=== PATIENT | female | born 1950 | race African-American/Black ===

== ENCOUNTER 2017-03-05 13:29 | Inpatient (IN) ==
[2017-03-05] MEDS ORDERED: GLUCAGON 1 MG VIAL IM PRN ×2 (13:35)
[2017-03-05] MEDS ORDERED: DEXTROSE 50% 25 GM/50 ML VIAL IV PRN ×2 (13:35)
--- NOTE | 2017-03-05 13:35 | Cardiothoracic History & Phys ---
History of Present Illness Chief complaint: Shortness of breath History of present illness: Ms. Gregorio is a 66 year old female who presented to [facility] with symptoms over the past 6 weeks of increasing shortness of breath and exertional chest discomfort. Patient was admitted to the hospital for evaluation including cardiac catheterization which demonstrated severe left main equivalent disease with high-grade occlusions in both the proximal anterior descending and circumflex marginal coronary arteries. Patient was referred for urgent bypass surgery. Patient is transferred to this hospital for that purpose. Past medical history the patient has a history of hypertension and has had a nephrectomy for carcinoma of the kidney she also has dyslipidemia and gastroesophageal reflux. Her family history is significant for history of premature coronary artery disease. Her past surgical history includes cholecystectomy hysterectomy and a nephrectomy. Patient is allergic to hydrochlorothiazide and penicillin and sulfa drugs. Patient is a non-smoker and nondrinker. Review of systems is noncontributory to the present illness. Physical examination: Patient is a well-developed well-nourished - [place] female in no acute distress. Examination of head eyes ears nose and throat showed pupils are equal react to light and extraocular motions are intact. The oropharynx is benign. Examination of the neck shows no masses there are no bruits and there is no thyromegaly. Examination of the chest is clear to percussion auscultation and examination the heart shows regular sinus rhythm and there are no murmurs. Examination the abdomen shows that it is soft and nontender there are no masses there is no organomegaly. Examination extremities shows no cyanosis or edema. Neurological examination is grossly within normal limits. Assessment: Coronary artery disease. Plan: Coronary bypass surgery in the morning 03/06/2017 Home Medications Medication Instructions Recorded Confirmed Type Amitriptyline [Elavil] 100 mg PO BEDTIME 05/08/15 05/16/15 History Atorvastatin [Lipitor] 40 mg PO BEDTIME 05/08/15 05/16/15 History Lisinopril 1 tablet PO BEDTIME 05/08/15 05/16/15 History Sertraline [Zoloft] 100 mg PO BEDTIME 05/08/15 05/16/15 History hydroCHLOROthiazide 1 tablet PO BEDTIME 05/08/15 05/16/15 History [Hydrochlorothiazide] raNITIdine HCl [Ranitidine HCl] 1 tablet PO BID 05/08/15 05/16/15 History Metoprolol Tartrate Tab [Lopressor 12.5 mg PO BID #60 tablet 05/22/15 Rx Tab] oxyCODONE IR [Roxicodone] 5 mg PO Q4H PRN #20 tablet 05/22/15 Rx Allergies Allergy/AdvReac Type Severity Reaction Status Date / Time acetaminophen [From Tylenol] Allergy Intermediate RASH Verified 05/08/15 11:58 Sulfa (Sulfonamide Allergy Mild HEAD Verified 05/08/15 11:58 Antibiotics) CONGESTION Penicillins AdvReac Intermediate SYNCOPE Verified 05/08/15 11:58 Medical,Surgical,& Family Hx - Medical History Cardio: History of: Hypertension Neurology: No history of: Brain Aneurysm, Cerebral Hemorrhage, Cerebrovascular Accident , Cerebral Palsy, Dementia, Migraine, Multiple Sclerosis, Parkinson's Disease, Peripheral Neuropathy, Seizures, TIA, Vertigo, Neurologocal Cancer HEENT: History of: Eye Problem (cataracts both eyes), Dental Problems (no upper teeth), HEENT Problems No history of: Ear Problem, Glaucoma, Oral Cancer Endocrine: No history of: Adrenal Disease, Diabetes Mellitus (IDDM), Diabetes Mellitus ( NIDDM), Thyroid Disorder, Endocrine Cancer, Endocrine Problems Rheumatology: History of;: Rheumatological Problems No history of;: Fibromyalgia, Gout, Myasthenia Gravis, Rheumatoid Arthritis Respiratory: No history of: Asthma, Bronchitis, COPD, Intubation, Obstructive Sleep Apnea , Pulmonary Embolism, Pulmonary Hypertension, Pneumonia, Lung Cancer, Respiratory Problems Renal: No history of: Renal (Kidney) Cancer, Dialysis, Renal Failure, Renal Problems Genitourinary: No history of: Bladder Problem, Kidney Stones, Recurring Urinary Tract Infections, Genitourinary Cancer, Problems Gastrointestinal: History of: GERD, GI Problems (chronic constipation) No history of: Bowel Obstruction, Clostridium Difficile, Crohn's Disease, Diverticulitis/ Diverticulosis, Esophageal Varices, Gastrointestinal Bleed, Hemorrhoids, Hematochezia, Hepatitis, Liver Problems, Pancreatitis, Polyps, Ulcerative Colitis, Gastrointestinal Cancer Musculoskeletal: History of: Musculoskeletal Problems No history of: Amputation, Back/Neck Problems, Degenerative Disk Disease, Herniated Disk, Osteoporosis, Musculoskeletal Cancer Hematology: History of: Bleeding Problems (whenever she has bowel movements she reports bleeding.) No history of: Anemia, Clotting Problems, Sickle Cell Disease, Hematologic Cancer, Blood Disorders - Surgical History Cardiac Surgeries: Patient Denies: Femoral-Popliteal Bypass Graft, Cardiac Catheterization, Cardiac Surgery, Carotid Endarterectomy, Internal Defibrillator, Vascular Access Devices Thoracic Surgeries: Surgical HX of;: Kidney (Renal Surgery), Nephrectomy ( partial left nephrectomy (05-16-15)) Patient denies;: Lithotripsy, Organ Transplant, Lobectomy Neurologic Surgeries: Patient denies: Brain Aneurysm, Cerebral Hemorrhage, Neurologic Surgery HEENT Surgeries: Surgical HX of: Eye Surgery (CATARACTS) Patient denies: Carotid Endarterectomy, Thyroid Surgery, Tonsilectomy & Adenoidectomy Abdominal Surgeries: Surgical HX of: Abdominal Surgery (hysterectomy), Cholecystectomy, Colonoscopy, EGD Patient denies: Appendectomy, Gastric Bypass Surgery, Hernia Repair, Splenectomy Reproductive Surgeries: Surgical HX of;: Cystoscopy, Dilation and Curettage, Genitourinary Surgery (bladder removal), Gynecologic Surgery (partial hysterectomy), Hysterectomy (PARTIAL HYST) Patient denies;: Breast Surgery, Section, Tubal Ligation Orthopedic Surgeries: Patient denies;: Implanted Devices, Orthopedic Surgery, Spinal Surgery, Total Hip Replacement, Total Knee Replacement - Family History Family History: Reports;: Family Diabetes (SISTER), Family Heart Disease (MOM), Family Hypertension (BROTHER), Family Psychiatric Problems (SISTER) Denies;: Family Anesthesia Reaction, Family Cancer - Social History Smoking Status: Smoker, status unknown
[2017-03-05] MEDS ORDERED: metroNIDAZOLE 500 MG TABLET PO ONE (20:00)
[2017-03-05] MEDS ORDERED: LISINOPRIL 10 MG TABLET PO ONE (20:00)
[2017-03-05] MEDS ORDERED: LEVOFLOXACIN 500 MG TABLET PO ONE (20:00)
[2017-03-05] MEDS ORDERED: ATORVASTATIN 40 MG TABLET PO ONE (20:30)
[2017-03-05] MEDS ORDERED: SERTRALINE 100 MG TABLET PO SCH (21:00)
[2017-03-05] MEDS ORDERED: SODIUM CHLORIDE 0.9% 1,000 ML IV SCH (21:00)
[2017-03-05] MEDS ORDERED: traZODone 50 MG TABLET PO SCH (21:00)
[2017-03-05] MEDS ORDERED: AMITRIPTYLINE 100 MG TABLET PO SCH (21:00)
[2017-03-05 21:13] LABS: Alanine Aminotransferase 11 U/L (13-56); Albumin 2.1 G/DL (3.4-5.0); Alkaline Phosphatase 139 U/L (45-117); Aspartate Amino Transferase 14 U/L (0-37); Bilirubin,Total < 0.39 MG/DL (0.2-1.0); Blood Urea Nitrogen 11 MG/DL (7-18); Glucose 99 MG/DL (74-106); Osmolality,Calculated 273.7 MOS/KG (273-304); Potassium 3.8 MMOL/L (3.5-5.1); Sodium 138 MMOL/L (136-145); Total Protein 5.8 G/DL (6.4-8.3)
[2017-03-05 21:16] LABS: Basophils % 0.2 % (0.0-0.8); Eosinophils # 0.3 10*3/uL (0.0-0.87); Hematocrit 36.3 VOL% (35.7-47.0); Hemoglobin 11.5 GM/DL (12.0-16.0); Immature Granulocytes % 0.7 %; Immature Granulocytes Absolute 0.06 #; Lymphocytes # 1.6 10*3/uL (1.4-4.0); Lymphocytes % 18.1 % (21.3-54.2); Mean Corpuscular HGB Conc 31.7 GM/DL (32-36); Mean Corpuscular Hemoglobin 27 PG (27-34); Mean Platelet Volume 9.2 FL (9.6-12.0); Monocytes % 10.5 % (1.7-12.7); Neutrophils # 6.1 10*3/uL (1.4-7.4); Neutrophils % 67.5 % (38.7-73.9); Platelet Count 332 T/CUMM (130-400); Red Blood Count 4.22 MC/CUMM (3.8-5.5); Red Cell Distribution Width 15.1 % (9.3-17.3); White Blood Count 9.1 T/CUMM (4-12)
--- NOTE | 2017-03-05 21:19 | XRay Report ---
History: Coronary artery disease Date: 03/05/2017 Study: Chest x-ray single view portable Comparison exam: May 17, 2015 There is mild cardiomegaly. The pulmonary vasculature is slightly prominent. There is no mediastinal mass. Shallow inspiration. There is no brant pneumonia or gross pleural effusion. A small calcified granuloma is noted in the right mid to lower lung. Osseous structures are unremarkable. Impression: Cardiomegaly and evidence of mild CHF PROCEDURE INTERPRETED AT [facility] DEPARTMENT OF RADIOLOGY Final Report Signed by: Dr. Yoanna Overton
[2017-03-05] MEDS: CHLORHEXIDINE 4% SOLN 118 ML BOTTLE TOP SCH (22:15)
[2017-03-05] MEDS: CHLORHEXIDINE 0.12% ORAL RINSE 60 ML BOTTLE SWISH/SPIT SCH (22:16)
[2017-03-06] MEDS: CHLORHEXIDINE 4% SOLN 118 ML BOTTLE TOP SCH ×3 (02:25→12:16)
--- NOTE | 2017-03-06 02:28 | EKG Report ---
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
[2017-03-06 03:27] LABS: ABG Base Excess 6.2 MMOL/L (-2.5-2.5); ABG HCO3 30.1 MMOL/L (20-26); ABG Oxygen Saturation 98.1 % (95-100); ABG PCO2 48.2 MM HG (35-48); ABG PH 7.425 (7.35-7.45); ABG TCO2 28.6 MMOL/L (23-27); Allen Test Positive
[2017-03-06] MEDS ORDERED: PAPAVERINE 60 MG/2 ML VIAL ONE (04:37)
[2017-03-06] MEDS ORDERED: TISSUE ADHESIVE 1 EACH APPLICATOR TOP ONE (04:37)
[2017-03-06] MEDS ORDERED: VANCOMYCIN 1,000 MG VIAL ONE (04:38)
[2017-03-06] MEDS ORDERED: FAMOTIDINE 20 MG TABLET PO ONE (06:00)
[2017-03-06] MEDS ORDERED: CEFUROXIME INJ 1,500 MG in SODIUM CHLORIDE 0.9% 100 ML IV ONE (06:00)
[2017-03-06] MEDS ORDERED: LORazepam 0.5 MG TABLET PO ONE ×2 (06:00)
[2017-03-06] MEDS ORDERED: LORazepam 1 MG TABLET PO ONE (06:00)
[2017-03-06] MEDS ORDERED: PHENYLEPHRINE 1 MG/10 ML SYRINGE IV ONE (06:45)
[2017-03-06] MEDS ORDERED: CALCIUM CHLORIDE 1,000 MG/10 ML SYRINGE IV ONE ×2 (06:45→09:19)
[2017-03-06] MEDS ORDERED: LIDOCAINE 2% 5 ML VIAL ONE (06:45)
[2017-03-06] MEDS ORDERED: VECURONIUM 10 MG VIAL IV ONE (06:45)
[2017-03-06] MEDS ORDERED: ETOMIDATE 20 MG/10 ML VIAL IV ONE (06:45)
[2017-03-06] MEDS ORDERED: AMINOCAPROIC ACID 5,000 MG/20 ML VIAL IV ONE (06:45)
[2017-03-06] MEDS ORDERED: MINERAL OIL/PETROLATUM OPH OINT 3.5 GM TUBE ONE ×2 (06:45→11:14)
[2017-03-06 07:31] LABS: ABG HCO3 29.9 MMOL/L (20-26); ABG PCO2 30.3 MM HG (35-48); ABG PH 7.572 (7.35-7.45); ABG TCO2 25.2 MMOL/L (23-27); Glucose Heart Surgery 89 MG/DL (74-106); Ionized Calcium Arterial 1.08 MMOL/L (1.21-1.46); PCO2 Patient Temp Arterial 30.3 MMHG; PH Patient Temp Arterial 7.572; Patient Temperature 37 CELCIUS; Potassium Heart/CVR 3.5 MMOL/L (3.5-5.1); Sodium Heart/CVR 136 MMOL/L (135-145)
[2017-03-06] MEDS ORDERED: METOPROLOL SUCCINATE XL 25 MG TABLET PO SCH (09:00)
[2017-03-06 09:02] LABS: Hematocrit Heart Surgery 18.7 PERCENT (37-47); PCO2 Patient Temp Venous 32.6 MM HG; PH Patient Temp Venous 7.551; PO2 Patient Temp Venous 35.4 MM HG; Potassium Heart/CVR 4.2 MMOL/L (3.5-5.1); VBG Base Excess 6.1 MEQ/L (0-4); VBG HCO3 29.8 MEQ/L (24-28); VBG Oxygen Saturation 79.7 %; VBG PCO2 35.9 MMHG (41-51); VBG PH 7.52; VBG PO2 40.7 MMHG (17-40)
[2017-03-06 09:03] LABS: Hemoglobin Heart Surgery 5.9 G/DL (12.0-16.0)
[2017-03-06] MEDS ORDERED: NITROPRUSSIDE 50 MG/2 ML VIAL ONE (09:19)
[2017-03-06] MEDS ORDERED: PHENYLEPHRINE DRIP 40 MG/250 ML PREMIX IV ONE (09:19)
[2017-03-06] MEDS ORDERED: POTASSIUM CHLORIDE RIDER 100 ML IV ONE (09:20)
[2017-03-06 09:38] LABS: Hematocrit Heart Surgery 21.8 PERCENT (37-47); PCO2 Patient Temp Venous 33.9 MM HG; PH Patient Temp Venous 7.531; PO2 Patient Temp Venous 36.5 MM HG; Potassium Heart/CVR 4.9 MMOL/L (3.5-5.1); VBG Base Excess 5.5 MEQ/L (0-4); VBG HCO3 29.1 MEQ/L (24-28); VBG Oxygen Saturation 75.7 %; VBG PCO2 33.9 MMHG (41-51); VBG PH 7.531; VBG PO2 36.5 MMHG (17-40)
[2017-03-06] MEDS ORDERED: PHENYLEPHRINE DRIP 20 MG/250 ML PREMIX IV ONE (10:04)
[2017-03-06] MEDS ORDERED: DEXTROSE 5% KCL 20 MEQ 20 MEQ/1,000 ML BAG IV ONE (10:04)
[2017-03-06] MEDS ORDERED: methylPREDNISolone SOD SUC 1,000 MG/8 ML VIAL ONE (10:05)
[2017-03-06] MEDS ORDERED: MAGNESIUM SULFATE 1 GM/2 ML VIAL ONE (10:05)
[2017-03-06] MEDS ORDERED: HEPARIN 10,000 UNIT/10 ML VIAL ONE (10:05)
[2017-03-06] MEDS ORDERED: PROTAMINE SULFATE 50 MG/5 ML VIAL IV ONE (10:05)
[2017-03-06] MEDS ORDERED: ALBUMIN 25% 25 GM/100 ML VIAL IV ONE (10:05)
[2017-03-06] MEDS ORDERED: FUROSEMIDE 20 MG/2 ML VIAL ONE (10:05)
[2017-03-06] MEDS ORDERED: PROTAMINE SULFATE 250 MG/25 ML VIAL IV ONE (10:05)
[2017-03-06] MEDS ORDERED: SODIUM BICARBONATE 50 MEQ/50 ML SYRINGE IV ONE (10:05)
[2017-03-06] MEDS ORDERED: MANNITOL 12.5 GM/50 ML VIAL IV ONE (10:05)
[2017-03-06] MEDS ORDERED: POTASSIUM CHLORIDE 20 MEQ/10 ML VIAL ONE (10:06)
[2017-03-06 10:09] LABS: ABG Base Excess 3.2 MMOL/L (-2.5-2.5); ABG HCO3 27.3 MMOL/L (20-26); ABG Oxygen Saturation 98.1 % (95-100); ABG PCO2 33.9 MM HG (35-48); ABG PH 7.497 (7.35-7.45); ABG TCO2 24.3 MMOL/L (23-27); Glucose Heart Surgery 207 MG/DL (74-106); Hematocrit Heart Surgery 26.1 PERCENT (37-47); Hemoglobin Heart Surgery 8.4 G/DL (12.0-16.0); Ionized Calcium Arterial 1.44 MMOL/L (1.21-1.46); PCO2 Patient Temp Arterial 33.9 MMHG; PH Patient Temp Arterial 7.497; Patient Temperature 37 CELCIUS; Potassium Heart/CVR 3.9 MMOL/L (3.5-5.1); Sodium Heart/CVR 134 MMOL/L (135-145)
[2017-03-06] MEDS ORDERED: DEXTROSE 50% 25 GM/50 ML VIAL IV PRN ×2 (10:44)
[2017-03-06] MEDS ORDERED: INSULIN REGULAR 100 UNIT/ML IV ONE (10:44)
[2017-03-06] MEDS ORDERED: MORPHINE 2 MG/1 ML SYRINGE IV PRN (10:44)
[2017-03-06] MEDS ORDERED: MAGNESIUM SULF RIDER 4 GM in PREMIX 1 EACH IV PRN (10:44)
[2017-03-06] MEDS ORDERED: MIDAZOLAM 2 MG/2 ML VIAL IV PRN (10:44)
[2017-03-06] MEDS ORDERED: POTASSIUM CHLORIDE RIDER 10 MEQ in PREMIX 1 EACH IV PRN (10:44)
[2017-03-06] MEDS ORDERED: NITROPRUSSIDE 100 MG in DEXTROSE 5% 250 ML IV PRN (10:44)
[2017-03-06] MEDS ORDERED: ONDANSETRON 4 MG/2 ML VIAL IV PRN (10:44)
[2017-03-06] MEDS ORDERED: MAGNESIUM SULF RIDER 2 GM in PREMIX 1 EACH IV PRN (10:44)
[2017-03-06] MEDS ORDERED: ACETAMINOPHEN 650 MG SUPP RECTAL PRN (10:44)
[2017-03-06] MEDS ORDERED: PHENYLEPHRINE DRIP 40 MG/250 ML PREMIX IV PRN (10:44)
[2017-03-06] MEDS ORDERED: MORPHINE 10 MG/1 ML VIAL IV PRN (10:44)
[2017-03-06] MEDS ORDERED: INSULIN REGULAR 100 UNIT/ML IV PRN (10:44)
[2017-03-06] MEDS ORDERED: CALCIUM CHLORIDE 1,000 MG/10 ML SYRINGE IV PRN (10:44)
[2017-03-06] MEDS ORDERED: MIDAZOLAM 10 MG/2 ML VIAL IV PRN (10:44)
[2017-03-06] MEDS ORDERED: VECURONIUM 10 MG VIAL IV PRN ×2 (10:44)
--- NOTE | 2017-03-06 10:51 | Operative Note ---
Date of procedure: 03/06/17 Pre-op diagnosis: Coronary artery disease Post-op diagnosis: same Procedure: Procedure: Coronary bypass grafting 2 with saphenous vein graft to the anterior descending and circumflex marginal coronary arteries. Findings: Patient is a 67-year-old lady with recent onset of substernal chest pain and cardiac catheterization demonstrating ostial lesions of both anterior descending and circumflex marginal coronary arteries. The time of surgery left ventricular function was noted to be essentially within normal limits. Left internal mammary artery was very small at its distal end and it was decided that it would be better and safer to put a saphenous vein graft to her large anterior descending coronary artery which was free of disease at the site of anastomosis. Circumflex marginal coronary was grafted using a saphenous vein graft. Patient tolerated procedure well and was returned to recovery in satisfactory condition. Procedure: Patient brought to the operating room placed in the operating table in supine position. After satisfactory induction of general anesthesia the chest abdomen and legs were prepped and draped in sterile fashion. Greater saphenous vein was harvested from the right lower leg and prepared is an arterial graft. Incision in the leg was closed with 3-0 subcutaneous Monocryl and 3-0 subcuticular Monocryl. A standard sternotomy incision was made and the sternum was divided and the heart suspended in a pericardial cradle. Left internal mammary artery was inspected with the above-noted findings. Patient was prepared for cardiopulmonary bypass with systemic heparinization and cannulation of the ascending aorta and right atrium. Cardiopulmonary bypass was begun and the aorta was crossclamped and the heart arrested with cardioplegia solution injected into the aortic root. Heart was protected during the period of crossclamping with topical saline slush. Distal anastomoses were constructed as noted above and then the aorta was unclamped reestablishing cardiac action. Proximal anastomoses were constructed between the inflow ends of the saphenous vein graft and the ascending aorta. Following this the patient was weaned from cardiopulmonary bypass without difficulty. Heparin effect was reversed with protamine and decannulation carried out in a defects in the ascending aorta and right atrium closed with 3-0 Prolene. Operative field was inspected for hemostasis and this was considered adequate incision was closed with interrupted stainless steel wire and the sternum 0 Monopril in the presternal fascia and 3-0 Monocryl in the subcuticular position. 2 chest tubes were left in the anterior mediastinum and brought out through separate stab incisions. Sterile dressings were applied and the patient was returned to recovery in satisfactory condition. Correction on the closure of the leg, the leg was closed with stainless steel skin clips. Surgeon / Physician: Rd Green Estimated blood loss: other (Unable to determine because of cardiopulmonary bypass) Condition: stable Disposition: ICU Results - Labs CBC & BMP: 03/06/17 10:08 03/05/17 20:37 Discharge Plan - Discharge Medications No Action Amitriptyline [Elavil] 100 mg PO BEDTIME Sertraline [Zoloft] 100 mg PO BEDTIME Atorvastatin [Lipitor] 40 mg PO BEDTIME Metoprolol Tartrate Tab [Lopressor Tab] 12.5 mg PO BID #60 tablet Furosemide Tab [Lasix Tab] 20 mg PO DAILY Aspirin Chew Tab 81 mg PO DAILY Pantoprazole Tab [Protonix Tab] 40 mg PO BEDTIME - Follow Up or Referral - Forms/Instructions Instructions: Coronary Artery Bypass Graft (DC), Sternal Precautions (GEN)
[2017-03-06] MEDS ORDERED: INSULIN REGULAR DRIP 100 ML IV SCH (11:00)
[2017-03-06] MEDS ORDERED: SODIUM CHLORIDE 0.45% 1,000 ML IV SCH ×2 (11:00)
[2017-03-06 11:05] LABS: Basophils % 0.1 % (0.0-0.8); Eosinophils # 0.1 10*3/uL (0.0-0.87); Eosinophils % 0.4 % (0.00-10.9); Hemoglobin 10.7 GM/DL (12.0-16.0); Immature Granulocytes % 1.1 %; Immature Granulocytes Absolute 0.15 #; Lymphocytes # 0.6 10*3/uL (1.4-4.0); Lymphocytes % 4.1 % (21.3-54.2); Mean Corpuscular HGB Conc 33.4 GM/DL (32-36); Mean Corpuscular Hemoglobin 28 PG (27-34); Mean Platelet Volume 9.3 FL (9.6-12.0); Monocytes # 0.7 10*3/uL (0.11-0.8); Neutrophils # 12.1 10*3/uL (1.4-7.4); Neutrophils % 89.3 % (38.7-73.9); Platelet Count 299 T/CUMM (130-400); Red Blood Count 3.81 MC/CUMM (3.8-5.5); Red Cell Distribution Width 15.1 % (9.3-17.3); White Blood Count 13.6 T/CUMM (4-12)
[2017-03-06 11:10] LABS: ABG Base Excess 4.7 MMOL/L (-2.5-2.5); ABG HCO3 28.7 MMOL/L (20-26); ABG PCO2 32.7 MM HG (35-48); ABG PH 7.527 (7.35-7.45); ABG TCO2 23.6 MMOL/L (23-27); Glucose Heart Surgery 182 MG/DL (74-106); Hemoglobin Heart Surgery 12.7 G/DL (12.0-16.0); Potassium Heart/CVR 3.7 MMOL/L (3.5-5.1)
[2017-03-06] MEDS ORDERED: SUFentanil 250 MCG/5 ML AMP ONE (11:13)
[2017-03-06] MEDS ORDERED: SEVOFLURANE 1 UNIT/15 MINUTE INH ONE (11:13)
[2017-03-06 11:14] LABS: INR 1.3; PT Patient Result 13.4 SECS; Partial Thromboplastin Time 28.5 SECS (0-40)
[2017-03-06] MEDS ORDERED: MIDAZOLAM 10 MG/2 ML VIAL ONE (11:14)
[2017-03-06] MEDS ORDERED: SODIUM CHLORIDE 0.9% 250 ML IV ONE (11:14)
[2017-03-06] MEDS ORDERED: LACTATED RINGERS 1,000 ML IV ONE (11:14)
[2017-03-06] MEDS ORDERED: SODIUM CHLORIDE 0.9% 1,000 ML IV ONE (11:14)
[2017-03-06 11:32] LABS: Band Neutrophils 4 % (0-10); Hypochromasia 1+; Lymphocytes 4 % (20-55); Platelet Estimate Normal; Segmented Neutrophils 91 % (50-85); Total Cells Counted 100
[2017-03-06 11:48] LABS: Albumin 2.3 G/DL (3.4-5.0); Bilirubin,Total 1.3 MG/DL (0.2-1.0); Calcium 9.2 MG/DL (8.5-10.1); Magnesium 1.9 MG/DL (1.8-2.4); Osmolality,Calculated 281.4 MOS/KG (273-304); Total Protein 5.3 G/DL (6.4-8.3)
[2017-03-06 12:06] LABS: Troponin I Only 6.58 NG/ML (0.00-0.045)
[2017-03-06] MEDS: POTASSIUM CHLORIDE RIDER 20 MEQ in PREMIX 1 EACH IV PRN ×2 (12:14→13:21)
[2017-03-06] MEDS: KETOROLAC 30 MG/1 ML VIAL IV SCH ×3 (12:20→23:01)
--- NOTE | 2017-03-06 12:30 | XRay Report ---
XR chest 1V portable Indication: Line placement Comparison: Chest x-ray 03/05/2017 Technique: Portable AP chest was performed. Findings: Interval sternotomy and placement of multiple tubes and medical support devices has occurred. Perihilar stranding on the right may reflect atelectasis. Heart size is stable. Lungs otherwise are clear. Impression: 1. Interval sternotomy. 03/06/2017 12:27 PM PROCEDURE INTERPRETED AT [facility] DEPARTMENT OF RADIOLOGY Final Report Signed by: Dr. Bon Whaley
[2017-03-06] MEDS: ALBUMIN 5% 12.5 GM in PREMIX 1 EACH IV PRN ×4 (12:42→22:20)
[2017-03-06] MEDS ORDERED: NITROGLYCERIN DRIP 50 MG/250 ML BOTTLE IV ONE (12:55)
[2017-03-06 13:13] LABS: ABG Base Excess 4.4 MMOL/L (-2.5-2.5); ABG HCO3 28.4 MMOL/L (20-26); ABG Oxygen Saturation 98.2 % (95-100); ABG PCO2 30.4 MM HG (35-48); ABG PH 7.548 (7.35-7.45); ABG TCO2 23.9 MMOL/L (23-27); Glucose Heart Surgery 131 MG/DL (74-106); Hematocrit Heart Surgery 31.2 PERCENT (37-47); Hemoglobin Heart Surgery 10.1 G/DL (12.0-16.0); Potassium Heart/CVR 3.9 MMOL/L (3.5-5.1)
[2017-03-06] MEDS ORDERED: NITROGLYCERIN DRIP 50 MG/250 ML BOTTLE IV SCH (13:30)
[2017-03-06] MEDS: CHLORHEXIDINE 0.12% ORAL RINSE 60 ML BOTTLE SWISH/SPIT SCH ×2 (13:42→20:19)
[2017-03-06 15:11] LABS: ABG Base Excess 3.9 MMOL/L (-2.5-2.5); ABG HCO3 27.9 MMOL/L (20-26); ABG PCO2 31.5 MM HG (35-48); ABG PH 7.528 (7.35-7.45); ABG TCO2 23.4 MMOL/L (23-27); Glucose Heart Surgery 117 MG/DL (74-106); Hematocrit Heart Surgery 33.5 PERCENT (37-47); Hemoglobin Heart Surgery 10.8 G/DL (12.0-16.0); Potassium Heart/CVR 4.5 MMOL/L (3.5-5.1)
--- NOTE | 2017-03-06 15:57 | Anesthesia Procedures ---
Anesthesia Procedures - Central Venous Insert Monitors Applied: pulse oximetry, EKG, BP cuff, oxygen via MSBT: pulse oximetry, EKG, BP cuff, oxygen via Procedure: after sterile technique was performed as outlined above, , ultrasound guidance was used to identify vessel, 18G introducer needle was passed into vessel under direct visualizatio, triple lumen catheter was passed over guidewire without difficulty, catheter sutured into place and the ports flushed with NS/hepflush, sterlie dressing applied including the antibiotic disc , vital signs were stable throughout procedure, no apparent complications were noted, CXR to be obtained and read Ultrasound used: identify patency vessel, visualize needle entry to vessel Vein Cannulated: right internal juglar
[2017-03-06 16:24] LABS: ABG Base Excess 3.3 MMOL/L (-2.5-2.5); ABG HCO3 27.4 MMOL/L (20-26); ABG Oxygen Saturation 99.1 % (95-100); ABG PH 7.479 (7.35-7.45); ABG TCO2 24.2 MMOL/L (23-27); Glucose Heart Surgery 118 MG/DL (74-106); Hematocrit Heart Surgery 31.1 PERCENT (37-47); Hemoglobin Heart Surgery 10.1 G/DL (12.0-16.0); Potassium Heart/CVR 4.4 MMOL/L (3.5-5.1)
[2017-03-06] MEDS: CEFUROXIME INJ 1,500 MG in SODIUM CHLORIDE 0.9% 100 ML IV SCH (18:21)
[2017-03-06 19:48] LABS: ABG Base Excess 2.5 MMOL/L (-2.5-2.5); ABG HCO3 25.5 MMOL/L (20-26); ABG Oxygen Saturation 98.4 % (95-100); ABG PCO2 33.8 MM HG (35-48); ABG PH 7.496 (7.35-7.45); ABG PO2 157.8 MM HG (80-95); ABG TCO2 26.6 MMOL/L (23-27); Glucose Heart Surgery 92 MG/DL (74-106); Hemoglobin Heart Surgery 10.3 G/DL (12.0-16.0); Potassium Heart/CVR 4.5 MMOL/L (3.5-5.1)
[2017-03-06] MEDS ORDERED: FUROSEMIDE 40 MG/4 ML VIAL IV ONE (19:58)
[2017-03-06] MEDS ORDERED: FUROSEMIDE 40 MG/4 ML VIAL IV PRN (19:59)
[2017-03-06 20:22] LABS: CKMB % 5.3 %
[2017-03-06 20:31] LABS: Troponin I Only 8.04 NG/ML (0.00-0.045)
[2017-03-06] MEDS: LACTATED RINGERS 250 ML IV PRN ×5 (21:15→23:00)
[2017-03-07 01:14] LABS: ABG Base Excess 2.4 MMOL/L (-2.5-2.5); ABG HCO3 26.6 MMOL/L (20-26); ABG Oxygen Saturation 98.4 % (95-100); ABG PCO2 34.5 MM HG (35-48); ABG PH 7.481 (7.35-7.45); ABG TCO2 23.7 MMOL/L (23-27); Glucose Heart Surgery 97 MG/DL (74-106); Hematocrit Heart Surgery 27.2 PERCENT (37-47); Hemoglobin Heart Surgery 8.8 G/DL (12.0-16.0); Potassium Heart/CVR 4.3 MMOL/L (3.5-5.1)
[2017-03-07] MEDS: INSULIN REGULAR 100 UNIT/ML SUBCUT SCH ×4 (02:21→20:14)
[2017-03-07 02:44] LABS: ABG Base Excess 2.9 MMOL/L (-2.5-2.5); ABG HCO3 27.1 MMOL/L (20-26); ABG Oxygen Saturation 98.3 % (95-100); ABG PCO2 24.8 MM HG (35-48); ABG PO2 96.4 MM HG (80-95); ABG TCO2 22.1 MMOL/L (23-27); Glucose Heart Surgery 97 MG/DL (74-106); Hematocrit Heart Surgery 27.4 PERCENT (37-47); Hemoglobin Heart Surgery 8.8 G/DL (12.0-16.0); Potassium Heart/CVR 4.2 MMOL/L (3.5-5.1)
[2017-03-07 02:49] LABS: ABG PH 7.594 (7.35-7.45)
[2017-03-07 02:59] LABS: Hematocrit 28.7 VOL% (35.7-47.0); Hemoglobin 9.7 GM/DL (12.0-16.0); Immature Granulocytes % 0.6 %; Immature Granulocytes Absolute 0.06 #; Lymphocytes # 0.7 10*3/uL (1.4-4.0); Lymphocytes % 7.8 % (21.3-54.2); Mean Corpuscular HGB Conc 33.8 GM/DL (32-36); Mean Corpuscular Hemoglobin 28 PG (27-34); Mean Corpuscular Volume 82.9 FL (87-102); Monocytes # 0.7 10*3/uL (0.11-0.8); Monocytes % 7.5 % (1.7-12.7); Neutrophils % 84.1 % (38.7-73.9); Platelet Count 239 T/CUMM (130-400); Red Blood Count 3.46 MC/CUMM (3.8-5.5); Red Cell Distribution Width 15.2 % (9.3-17.3); White Blood Count 9.5 T/CUMM (4-12)
[2017-03-07] MEDS: POTASSIUM CHLORIDE RIDER 20 MEQ in PREMIX 1 EACH IV PRN (03:06)
[2017-03-07 03:19] LABS: Bilirubin,Direct 0.2 MG/DL (0.0-0.20); Bilirubin,Total 0.5 MG/DL (0.2-1.0); CKMB % 4.5 %; Calcium 8.8 MG/DL (8.5-10.1); Magnesium 1.7 MG/DL (1.8-2.4); Osmolality,Calculated 280.3 MOS/KG (273-304); Potassium 4.4 MMOL/L (3.5-5.1); Total Protein 5.6 G/DL (6.4-8.3); Troponin I Only 7.07 NG/ML (0.00-0.045)
[2017-03-07 03:33] LABS: ABG Base Excess 2.8 MMOL/L (-2.5-2.5); ABG HCO3 26.9 MMOL/L (20-26); ABG Oxygen Saturation 98.2 % (95-100); ABG PH 7.537 (7.35-7.45); ABG TCO2 21.7 MMOL/L (23-27); Glucose Heart Surgery 101 MG/DL (74-106); Hematocrit Heart Surgery 36.2 PERCENT (37-47); Hemoglobin Heart Surgery 11.8 G/DL (12.0-16.0); Potassium Heart/CVR 4.6 MMOL/L (3.5-5.1)
[2017-03-07 04:56] LABS: ABG Base Excess 0.9 MMOL/L (-2.5-2.5); ABG HCO3 25.2 MMOL/L (20-26); ABG Oxygen Saturation 98.2 % (95-100); ABG PCO2 47.2 MM HG (35-48); ABG TCO2 24.6 MMOL/L (23-27); Glucose Heart Surgery 100 MG/DL (74-106); Hematocrit Heart Surgery 28.9 PERCENT (37-47); Hemoglobin Heart Surgery 9.3 G/DL (12.0-16.0); Potassium Heart/CVR 4.6 MMOL/L (3.5-5.1)
[2017-03-07] MEDS: KETOROLAC 30 MG/1 ML VIAL IV SCH (05:15)
[2017-03-07 05:30] LABS: ABG Base Excess 0.4 MMOL/L (-2.5-2.5); ABG HCO3 24.8 MMOL/L (20-26); ABG Oxygen Saturation 98.3 % (95-100); ABG PH 7.337 (7.35-7.45); ABG TCO2 24.6 MMOL/L (23-27); Glucose Heart Surgery 100 MG/DL (74-106); Hematocrit Heart Surgery 30.6 PERCENT (37-47); Hemoglobin Heart Surgery 9.9 G/DL (12.0-16.0); Potassium Heart/CVR 4.8 MMOL/L (3.5-5.1)
[2017-03-07 06:15] LABS: ABG Base Excess 0.1 MMOL/L (-2.5-2.5); ABG HCO3 24.5 MMOL/L (20-26); ABG Oxygen Saturation 97.8 % (95-100); ABG PCO2 49.3 MM HG (35-48); ABG PH 7.338 (7.35-7.45); ABG TCO2 24.1 MMOL/L (23-27); Glucose Heart Surgery 101 MG/DL (74-106); Hematocrit Heart Surgery 32.2 PERCENT (37-47); Hemoglobin Heart Surgery 10.4 G/DL (12.0-16.0); Potassium Heart/CVR 4.7 MMOL/L (3.5-5.1)
[2017-03-07] MEDS: CEFUROXIME INJ 1,500 MG in SODIUM CHLORIDE 0.9% 100 ML IV SCH (06:17)
--- NOTE | 2017-03-07 08:13 | EKG Report ---
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
--- NOTE | 2017-03-07 08:14 | Cardiothoracic Progress Note ---
Cardiothoracic Subjective Interval history: Patient is awake alert and extubated. She was stable through the night and her vital signs are stable this morning and she is breathing comfortably. Cardiac output has ranged between 2.5 and 3.5 L/min cardiac enzymes are within normal limits for postop day 1. Blood gases are satisfactory postextubation and urine output and creatinine likewise are satisfactory. Chest tube drainage is minimal and her chest tubes are discontinued. I think she can be transferred to telemetry later this morning. Exam (Progress Note) - Constitutional Vitals: Period Temp Pulse Resp BP Sys/Berg Pulse Ox Last 24 Hr 97.0 F-98.2 F 62-87 8-26 93-153/55-86 95-100 Result/EKG - Labs CBC & BMP: 03/07/17 02:40 03/07/17 02:40 Labs: Laboratory Results - last 24 hr 03/05/17 03/06/17 03/06/17 21:07 09:00 09:30 WBC RBC Hgb Hct MCV MCH MCHC RDW Plt Count MPV Neut % (Auto) Lymph % (Auto) [place] % (Auto) Eos % (Auto) Baso % (Auto) Neut # (Auto) Lymph # (Auto) [place] # (Auto) Eos # (Auto) Baso # (Auto) Total Counted Immature Gran % Nucleated RBC % Immature Gran # Segmented Neutrophils Band Neutrophils Lymphocytes Monocytes Nucleated RBCs # Platelet Estimate Hypochromasia INR PT Patient/Control Mix Circ Anticoag PTT Patient Temperature 35 37 ABG pH ABG pH at Pt Temp 7.551 7.531 ABG pCO2 ABG pCO2 at Pt Temp 32.6 33.9 ABG pO2 ABG pO2 at Pt Temp 35.4 36.5 ABG HCO3 ABG Total CO2 ABG O2 Saturation ABG Base Excess ABG Sodium 131 L 132 L VBG pH 7.520 7.531 VBG pCO2 35.9 L 33.9 L VBG pO2 40.7 H 36.5 VBG HCO3 29.8 H 29.1 H VBG Total CO2 28.1 26.9 VBG O2 Saturation 79.7 75.7 VBG Base Excess 6.1 H 5.5 H Hemoglobin 5.9 L* 7.0 L Hematocrit 18.7 L 21.8 L Potassium 4.2 4.9 Glucose 279 H 230 H Ionized Calcium FiO2 80.00 80.00 Sodium Chloride Carbon Dioxide Anion Gap BUN Creatinine GFR Calculation BUN/Creatinine Ratio Calculated Osmolality Calcium Venous Ioniz Calcium 0.91 L 0.95 L Magnesium Total Bilirubin Direct Bilirubin AST ALT Alkaline Phosphatase Total Creatine Kinase CK-MB (CK-2) CK and CKMB Interp Troponin I Total Protein Albumin Globulin Albumin/Globulin Ratio Blood Type O POSITIVE Antibody Screen Negative Crossmatch See Detail 03/06/17 03/06/17 03/06/17 10:08 10:08 11:00 WBC RBC Hgb Hct MCV MCH MCHC RDW Plt Count 179 D MPV Neut % (Auto) Lymph % (Auto) [place] % (Auto) Eos % (Auto) Baso % (Auto) Neut # (Auto) Lymph # (Auto) [place] # (Auto) Eos # (Auto) Baso # (Auto) Total Counted Immature Gran % Nucleated RBC % Immature Gran # Segmented Neutrophils Band Neutrophils Lymphocytes Monocytes Nucleated RBCs # Platelet Estimate Hypochromasia INR PT Patient/Control Mix Circ Anticoag PTT Patient Temperature 37 ABG pH 7.497 H ABG pH at Pt Temp 7.497 ABG pCO2 33.9 L ABG pCO2 at Pt Temp 33.9 ABG pO2 234.0 H ABG pO2 at Pt Temp 234.0 ABG HCO3 27.3 H ABG Total CO2 24.3 ABG O2 Saturation 98.1 ABG Base Excess 3.2 H ABG Sodium 134 L VBG pH VBG pCO2 VBG pO2 VBG HCO3 VBG Total CO2 VBG O2 Saturation VBG Base Excess Hemoglobin 8.4 L Hematocrit 26.1 L Potassium 3.9 4.0 Glucose 207 H 173 H Ionized Calcium 1.44 FiO2 Sodium 140 Chloride 103 Carbon Dioxide 27 Anion Gap 14.0 BUN 10 Creatinine 0.80 GFR Calculation 95 BUN/Creatinine Ratio 12.00 Calculated Osmolality 281.4 Calcium 9.2 Venous Ioniz Calcium Magnesium 1.9 Total Bilirubin 1.30 H Direct Bilirubin AST 113 H ALT 22 Alkaline Phosphatase 408 H Total Creatine Kinase CK-MB (CK-2) CK and CKMB Interp Troponin I Total Protein 5.3 L Albumin 2.3 L Globulin 3.0 Albumin/Globulin Ratio 0.7 L Blood Type Antibody Screen Crossmatch 03/06/17 03/06/17 03/06/17 11:00 11:00 11:02 WBC 13.6 H D RBC 3.81 Hgb 10.7 L Hct 32.0 L MCV 84.0 L MCH 28 MCHC 33.4 RDW 15.1 Plt Count 299 D MPV 9.3 L Neut % (Auto) 89.3 H Lymph % (Auto) 4.1 L [place] % (Auto) 5.0 Eos % (Auto) 0.4 Baso % (Auto) 0.1 Neut # (Auto) 12.1 H Lymph # (Auto) 0.6 L [place] # (Auto) 0.7 Eos # (Auto) 0.1 Baso # (Auto) 0.0 Total Counted 100 Immature Gran % 1.1 Nucleated RBC % 0.0 Immature Gran # 0.15 Segmented Neutrophils 91 H Band Neutrophils 4 Lymphocytes 4 L Monocytes 1 L Nucleated RBCs # 0.00 Platelet Estimate Normal Hypochromasia 1+ INR PT Patient/Control Mix Circ Anticoag PTT Patient Temperature ABG pH 7.527 H ABG pH at Pt Temp ABG pCO2 32.7 L ABG pCO2 at Pt Temp ABG pO2 147.0 H ABG pO2 at Pt Temp ABG HCO3 28.7 H ABG Total CO2 23.6 ABG O2 Saturation 99.0 ABG Base Excess 4.7 H ABG Sodium VBG pH VBG pCO2 VBG pO2 VBG HCO3 VBG Total CO2 VBG O2 Saturation VBG Base Excess Hemoglobin 12.7 Hematocrit 39.0 Potassium 3.7 Glucose 182 H Ionized Calcium FiO2 Sodium Chloride Carbon Dioxide Anion Gap BUN Creatinine GFR Calculation BUN/Creatinine Ratio Calculated Osmolality Calcium Venous Ioniz Calcium Magnesium Total Bilirubin Direct Bilirubin AST ALT Alkaline Phosphatase Total Creatine Kinase 207 H CK-MB (CK-2) 18.7 H CK and CKMB Interp 9.0 Troponin I 6.580 H Total Protein Albumin Globulin Albumin/Globulin Ratio Blood Type Antibody Screen Crossmatch 03/06/17 03/06/17 03/06/17 11:02 13:04 14:55 WBC RBC Hgb Hct MCV MCH MCHC RDW Plt Count MPV Neut % (Auto) Lymph % (Auto) [place] % (Auto) Eos % (Auto) Baso % (Auto) Neut # (Auto) Lymph # (Auto) [place] # (Auto) Eos # (Auto) Baso # (Auto) Total Counted Immature Gran % Nucleated RBC % Immature Gran # Segmented Neutrophils Band Neutrophils Lymphocytes Monocytes Nucleated RBCs # Platelet Estimate Hypochromasia INR 1.3 PT Patient/Control Mix 13.4 Circ Anticoag PTT 28.5 Patient Temperature ABG pH 7.548 H 7.528 H ABG pH at Pt Temp ABG pCO2 30.4 L 31.5 L ABG pCO2 at Pt Temp ABG pO2 185.0 H 148.0 H ABG pO2 at Pt Temp ABG HCO3 28.4 H 27.9 H ABG Total CO2 23.9 23.4 ABG O2 Saturation 98.2 99.0 ABG Base Excess 4.4 H 3.9 H ABG Sodium VBG pH VBG pCO2 VBG pO2 VBG HCO3 VBG Total CO2 VBG O2 Saturation VBG Base Excess Hemoglobin 10.1 L 10.8 L Hematocrit 31.2 L 33.5 L Potassium 3.9 4.5 Glucose 131 H 117 H Ionized Calcium FiO2 Sodium Chloride Carbon Dioxide Anion Gap BUN Creatinine GFR Calculation BUN/Creatinine Ratio Calculated Osmolality Calcium Venous Ioniz Calcium Magnesium Total Bilirubin Direct Bilirubin AST ALT Alkaline Phosphatase Total Creatine Kinase CK-MB (CK-2) CK and CKMB Interp Troponin I Total Protein Albumin Globulin Albumin/Globulin Ratio Blood Type Antibody Screen Crossmatch 03/06/17 03/06/17 03/06/17 16:14 19:43 19:45 WBC RBC Hgb Hct MCV MCH MCHC RDW Plt Count MPV Neut % (Auto) Lymph % (Auto) [place] % (Auto) Eos % (Auto) Baso % (Auto) Neut # (Auto) Lymph # (Auto) [place] # (Auto) Eos # (Auto) Baso # (Auto) Total Counted Immature Gran % Nucleated RBC % Immature Gran # Segmented Neutrophils Band Neutrophils Lymphocytes Monocytes Nucleated RBCs # Platelet Estimate Hypochromasia INR PT Patient/Control Mix Circ Anticoag PTT Patient Temperature ABG pH 7.479 H 7.496 H ABG pH at Pt Temp ABG pCO2 36.0 33.8 L ABG pCO2 at Pt Temp ABG pO2 155.0 H 157.8 H ABG pO2 at Pt Temp ABG HCO3 27.4 H 25.5 ABG Total CO2 24.2 26.6 ABG O2 Saturation 99.1 98.4 ABG Base Excess 3.3 H 2.5 ABG Sodium VBG pH VBG pCO2 VBG pO2 VBG HCO3 VBG Total CO2 VBG O2 Saturation VBG Base Excess Hemoglobin 10.1 L 10.3 L Hematocrit 31.1 L 30.0 L Potassium 4.4 4.5 Glucose 118 H 92 Ionized Calcium FiO2 Sodium Chloride Carbon Dioxide Anion Gap BUN Creatinine GFR Calculation BUN/Creatinine Ratio Calculated Osmolality Calcium Venous Ioniz Calcium Magnesium Total Bilirubin Direct Bilirubin AST ALT Alkaline Phosphatase Total Creatine Kinase 211 H CK-MB (CK-2) 11.2 H D CK and CKMB Interp 5.3 Troponin I 8.040 H D Total Protein Albumin Globulin Albumin/Globulin Ratio Blood Type Antibody Screen Crossmatch 03/07/17 03/07/17 03/07/17 01:11 02:40 02:40 WBC 9.5 D RBC 3.46 L Hgb 9.7 L Hct 28.7 L MCV 82.9 L MCH 28 MCHC 33.8 RDW 15.2 Plt Count 239 D MPV 10.0 Neut % (Auto) 84.1 H Lymph % (Auto) 7.8 L [place] % (Auto) 7.5 Eos % (Auto) 0.0 Baso % (Auto) 0.0 Neut # (Auto) 8.0 H Lymph # (Auto) 0.7 L [place] # (Auto) 0.7 Eos # (Auto) 0.0 Baso # (Auto) 0.0 Total Counted Immature Gran % 0.6 Nucleated RBC % 0.0 Immature Gran # 0.06 Segmented Neutrophils Band Neutrophils Lymphocytes Monocytes Nucleated RBCs # 0.00 Platelet Estimate Hypochromasia INR PT Patient/Control Mix Circ Anticoag PTT Patient Temperature ABG pH 7.481 H ABG pH at Pt Temp ABG pCO2 34.5 L ABG pCO2 at Pt Temp ABG pO2 119.0 H ABG pO2 at Pt Temp ABG HCO3 26.6 H ABG Total CO2 23.7 ABG O2 Saturation 98.4 ABG Base Excess 2.4 ABG Sodium VBG pH VBG pCO2 VBG pO2 VBG HCO3 VBG Total CO2 VBG O2 Saturation VBG Base Excess Hemoglobin 8.8 L Hematocrit 27.2 L Potassium 4.3 Glucose 97 Ionized Calcium FiO2 Sodium Chloride Carbon Dioxide Anion Gap BUN Creatinine GFR Calculation BUN/Creatinine Ratio Calculated Osmolality Calcium Venous Ioniz Calcium Magnesium Total Bilirubin Direct Bilirubin AST ALT Alkaline Phosphatase Total Creatine Kinase 179 CK-MB (CK-2) 8.0 H CK and CKMB Interp 4.5 Troponin I 7.070 H Total Protein Albumin Globulin Albumin/Globulin Ratio Blood Type Antibody Screen Crossmatch 03/07/17 03/07/17 03/07/17 02:40 02:40 03:23 WBC RBC Hgb Hct MCV MCH MCHC RDW Plt Count MPV Neut % (Auto) Lymph % (Auto) [place] % (Auto) Eos % (Auto) Baso % (Auto) Neut # (Auto) Lymph # (Auto) [place] # (Auto) Eos # (Auto) Baso # (Auto) Total Counted Immature Gran % Nucleated RBC % Immature Gran # Segmented Neutrophils Band Neutrophils Lymphocytes Monocytes Nucleated RBCs # Platelet Estimate Hypochromasia INR PT Patient/Control Mix Circ Anticoag PTT Patient Temperature ABG pH 7.594 H* 7.537 H ABG pH at Pt Temp ABG pCO2 24.8 L 29.0 L ABG pCO2 at Pt Temp ABG pO2 96.4 H 105.0 H ABG pO2 at Pt Temp ABG HCO3 27.1 H 26.9 H ABG Total CO2 22.1 L 21.7 L ABG O2 Saturation 98.3 98.2 ABG Base Excess 2.9 H 2.8 H ABG Sodium VBG pH VBG pCO2 VBG pO2 VBG HCO3 VBG Total CO2 VBG O2 Saturation VBG Base Excess Hemoglobin 8.8 L 11.8 L Hematocrit 27.4 L 36.2 L Potassium 4.4 4.2 4.6 Glucose 91 97 101 Ionized Calcium FiO2 Sodium 141 Chloride 107 Carbon Dioxide 26 Anion Gap 12.4 BUN 13 Creatinine 1.00 GFR Calculation 72 BUN/Creatinine Ratio 13.00 Calculated Osmolality 280.3 Calcium 8.8 Venous Ioniz Calcium Magnesium 1.7 L Total Bilirubin 0.50 Direct Bilirubin 0.20 AST 41 H ALT 16 Alkaline Phosphatase 272 H Total Creatine Kinase CK-MB (CK-2) CK and CKMB Interp Troponin I Total Protein 5.6 L Albumin 3.0 L Globulin 2.6 Albumin/Globulin Ratio 1.1 Blood Type Antibody Screen Crossmatch 03/07/17 03/07/17 03/07/17 04:53 05:27 06:14 WBC RBC Hgb Hct MCV MCH MCHC RDW Plt Count MPV Neut % (Auto) Lymph % (Auto) [place] % (Auto) Eos % (Auto) Baso % (Auto) Neut # (Auto) Lymph # (Auto) [place] # (Auto) Eos # (Auto) Baso # (Auto) Total Counted Immature Gran % Nucleated RBC % Immature Gran # Segmented Neutrophils Band Neutrophils Lymphocytes Monocytes Nucleated RBCs # Platelet Estimate Hypochromasia INR PT Patient/Control Mix Circ Anticoag PTT Patient Temperature ABG pH 7.360 7.337 L 7.338 L ABG pH at Pt Temp ABG pCO2 47.2 50.0 H 49.3 H ABG pCO2 at Pt Temp ABG pO2 123.0 H 142.0 H 121.0 H ABG pO2 at Pt Temp ABG HCO3 25.2 24.8 24.5 ABG Total CO2 24.6 24.6 24.1 ABG O2 Saturation 98.2 98.3 97.8 ABG Base Excess 0.9 0.4 0.1 ABG Sodium VBG pH VBG pCO2 VBG pO2 VBG HCO3 VBG Total CO2 VBG O2 Saturation VBG Base Excess Hemoglobin 9.3 L 9.9 L 10.4 L Hematocrit 28.9 L 30.6 L 32.2 L Potassium 4.6 4.8 4.7 Glucose 100 100 101 Ionized Calcium FiO2 Sodium Chloride Carbon Dioxide Anion Gap BUN Creatinine GFR Calculation BUN/Creatinine Ratio Calculated Osmolality Calcium Venous Ioniz Calcium Magnesium Total Bilirubin Direct Bilirubin AST ALT Alkaline Phosphatase Total Creatine Kinase CK-MB (CK-2) CK and CKMB Interp Troponin I Total Protein Albumin Globulin Albumin/Globulin Ratio Blood Type Antibody Screen Crossmatch Quality Measures - VTE Contraindication to Pharmacological VTE Prophylaxis: High Risk of Bleeding Specialty Discharge - Follow Up or Referrals
[2017-03-07] MEDS ORDERED: ONDANSETRON 4 MG/2 ML VIAL IV PRN (08:17)
[2017-03-07] MEDS ORDERED: MAGNESIUM SULF RIDER 2 GM in PREMIX 1 EACH IV PRN (08:17)
[2017-03-07] MEDS ORDERED: oxyCODONE/ACETAMINOPHEN 5-325 MG TABLET PO PRN (08:17)
[2017-03-07] MEDS ORDERED: ALUMINUM/MAGNES/SIMETH MAX STR 30 ML UDCUP PO PRN (08:17)
[2017-03-07] MEDS ORDERED: GLUCAGON 1 MG VIAL IM PRN ×2 (08:17)
[2017-03-07] MEDS ORDERED: MAGNESIUM SULF RIDER 4 GM in PREMIX 1 EACH IV PRN (08:17)
[2017-03-07] MEDS ORDERED: DEXTROSE 50% 25 GM/50 ML VIAL IV PRN ×2 (08:17)
[2017-03-07] MEDS ORDERED: ZALEPLON 5 MG CAPSULE PO PRN (08:17)
[2017-03-07] MEDS ORDERED: ACETAMINOPHEN 325 MG TABLET PO PRN (08:17)
[2017-03-07] MEDS ORDERED: SODIUM CHLOR 0.45% KCL 20 MEQ 20 MEQ/1,000 ML BAG IV SCH ×2 (08:30→14:39)
[2017-03-07] MEDS ORDERED: FUROSEMIDE 20 MG TABLET PO SCH (09:00)
[2017-03-07] MEDS ORDERED: METOPROLOL TARTRATE 25 MG TABLET PO SCH (09:00)
--- NOTE | 2017-03-07 09:17 | XRay Report ---
Portable chest. Indication: Status post chest tube removal. Comparison: Yesterday's exam. The heart is normal in size. Post median sternotomy. Right IJ line remains in satisfactory position. An endotracheal tube, [place] catheter, nasogastric tube, and chest tubes have been removed. Surgical clips are noted in the upper abdomen. The pulmonary vasculature is normal. There is improved aeration at the lung bases. Mild atelectasis persists. No pneumothorax is seen. Impression: Mild persistent atelectasis. No pneumothorax. Interval improvement. PROCEDURE INTERPRETED AT [facility] DEPARTMENT OF RADIOLOGY Final Report Signed by: Dr. Melanie Nichole
[2017-03-07] MEDS: ASPIRIN CHEW 81 MG TABLET PO SCH (09:19)
[2017-03-07] MEDS: FERROUS SULFATE 325 MG TABLET PO SCH (09:19)
[2017-03-07] MEDS: CHLORHEXIDINE 0.12% ORAL RINSE 60 ML BOTTLE SWISH/SPIT SCH ×3 (09:20→20:15)
[2017-03-07] MEDS: DOCUSATE SODIUM 100 MG CAPSULE PO SCH (09:20)
[2017-03-07] MEDS: ALBUMIN 5% 12.5 GM in PREMIX 1 EACH IV PRN ×2 (10:41→11:12)
[2017-03-07] MEDS ORDERED: SODIUM CHLORIDE 0.9% 250 ML IV ONE (13:18)
[2017-03-07] MEDS: PANTOPRAZOLE 40 MG TABLET PO SCH (13:23)
[2017-03-07] MEDS ORDERED: PHENYLEPHRINE DRIP 40 MG/250 ML PREMIX IV ONE (13:52)
[2017-03-07] MEDS: PHENYLEPHRINE DRIP 40 MG/250 ML PREMIX IV SCH (13:58)
[2017-03-07] MEDS ORDERED: LOPERAMIDE 2 MG CAPSULE PO PRN (14:55)
[2017-03-07] MEDS ORDERED: LOPERAMIDE 2 MG CAPSULE PO ONE (15:03)
[2017-03-07] MEDS: metroNIDAZOLE INJ 500 MG in PREMIX 1 EACH IV SCH ×2 (15:14→23:47)
--- NOTE | 2017-03-07 15:35 | Anesthesia Post-Op ---
Anesthesia Post OP - Post Ansesthetic Evaluation Patient seen in post op: Yes Resp: within normal limits CV: within normal limits Mental: within normal limits Temp: within normal limits [id number]: within normal limits Nausea and Vomiting: within normal limits Pain: within normal limits
[2017-03-07] MEDS: MORPHINE 2 MG/1 ML SYRINGE IV PRN ×3 (17:37→23:42)
[2017-03-07 18:05] LABS: Calcium 8.2 MG/DL (8.5-10.1); Magnesium 2.5 MG/DL (1.8-2.4); Osmolality,Calculated 287.3 MOS/KG (273-304); Potassium 4.9 MMOL/L (3.5-5.1)
[2017-03-07] MEDS ORDERED: FUROSEMIDE 100 MG/10 ML VIAL IV ONE (18:21)
[2017-03-07] MEDS ORDERED: methylPREDNISolone SOD SUC 125 MG/2 ML VIAL ONE (18:22)
[2017-03-07] MEDS ORDERED: DOBUTamine 500 MG/250 ML PREMIX IV ONE (18:23)
[2017-03-07] MEDS: SODIUM CHLORIDE 0.45% 1,000 ML IV SCH (18:30)
[2017-03-07] MEDS ORDERED: DOBUTamine 500 MG/250 ML PREMIX IV SCH (18:30)
[2017-03-07] MEDS: methylPREDNISolone SOD SUC 125 MG/2 ML VIAL IV SCH (18:31)
[2017-03-07] MEDS ORDERED: CEFUROXIME INJ 1,500 MG in SODIUM CHLORIDE 0.9% 100 ML IV ONE (18:45)
[2017-03-07] MEDS: FUROSEMIDE INJ 100 MG in SODIUM CHLORIDE 0.9% 90 ML IV SCH (19:23)
[2017-03-07] MEDS: AMITRIPTYLINE 100 MG TABLET PO SCH (20:14)
[2017-03-07] MEDS: ATORVASTATIN 40 MG TABLET PO SCH (20:14)
[2017-03-07] MEDS: SERTRALINE 100 MG TABLET PO SCH (20:14)
[2017-03-07] MEDS ORDERED: PANTOPRAZOLE 40 MG TABLET PO SCH (21:00)
[2017-03-07 22:44] LABS: Magnesium 2.2 MG/DL (1.8-2.4); Potassium 4.7 MMOL/L (3.5-5.1)
[2017-03-07] MEDS ORDERED: AMIODARONE INJ 150 MG in DEXTROSE 5% 100 ML IV ONE (22:55)
[2017-03-07] MEDS ORDERED: AMIODARONE INJ 450 MG in DEXTROSE 5% 241 ML IV SCH (23:30)
[2017-03-08] MEDS: methylPREDNISolone SOD SUC 125 MG/2 ML VIAL IV SCH ×4 (00:16→19:01)
[2017-03-08] MEDS: INSULIN REGULAR 100 UNIT/ML SUBCUT SCH ×6 (00:21→20:48)
[2017-03-08] MEDS: MORPHINE 2 MG/1 ML SYRINGE IV PRN ×3 (03:05→10:28)
[2017-03-08 03:33] LABS: Basophils % 0.1 % (0.0-0.8); Hematocrit 37.7 VOL% (35.7-47.0); Hemoglobin 12.3 GM/DL (12.0-16.0); Immature Granulocytes % 0.9 %; Immature Granulocytes Absolute 0.16 #; Lymphocytes # 0.5 10*3/uL (1.4-4.0); Lymphocytes % 2.7 % (21.3-54.2); Mean Corpuscular HGB Conc 32.6 GM/DL (32-36); Mean Corpuscular Hemoglobin 28 PG (27-34); Mean Corpuscular Volume 85.5 FL (87-102); Mean Platelet Volume 9.6 FL (9.6-12.0); Monocytes # 0.9 10*3/uL (0.11-0.8); Monocytes % 5.1 % (1.7-12.7); Neutrophils # 15.9 10*3/uL (1.4-7.4); Neutrophils % 91.2 % (38.7-73.9); Platelet Count 310 T/CUMM (130-400); Red Blood Count 4.41 MC/CUMM (3.8-5.5); Red Cell Distribution Width 15.8 % (9.3-17.3); White Blood Count 17.4 T/CUMM (4-12)
[2017-03-08] MEDS: PHENYLEPHRINE DRIP 40 MG/250 ML PREMIX IV SCH (03:40)
[2017-03-08 03:54] LABS: Alanine Aminotransferase 17 U/L (13-56); Albumin 3.1 G/DL (3.4-5.0); Alkaline Phosphatase 273 U/L (45-117); Aspartate Amino Transferase 56 U/L (0-37); Bilirubin,Indirect 0.2 MG/DL (0.0-1.0); Blood Urea Nitrogen 23 MG/DL (7-18); Calcium 7.8 MG/DL (8.5-10.1); Glucose 251 MG/DL (74-106); Magnesium 2.3 MG/DL (1.8-2.4); Osmolality,Calculated 284.8 MOS/KG (273-304); Sodium 137 MMOL/L (136-145); Total Protein 6.1 G/DL (6.4-8.3)
[2017-03-08] MEDS: FUROSEMIDE INJ 100 MG in SODIUM CHLORIDE 0.9% 90 ML IV SCH ×2 (04:19→16:27)
[2017-03-08 04:28] LABS: Band Neutrophils 8 % (0-10); Lymphocytes 2 % (20-55); Platelet Estimate Normal; Segmented Neutrophils 86 % (50-85); Total Cells Counted 100
[2017-03-08] MEDS: AMIODARONE INJ 450 MG in DEXTROSE 5% 241 ML IV SCH ×2 (05:34→20:50)
[2017-03-08] MEDS ORDERED: FUROSEMIDE 40 MG/4 ML VIAL IV ONE (06:00)
[2017-03-08] MEDS: metroNIDAZOLE INJ 500 MG in PREMIX 1 EACH IV SCH ×2 (06:06→14:53)
[2017-03-08] MEDS ORDERED: LEVOFLOXACIN INJ 500 MG in PREMIX 1 EACH IV SCH (07:30)
[2017-03-08 07:45] LABS: ABG Base Excess -3.3 MMOL/L (-2.5-2.5); ABG HCO3 20.3 MMOL/L (20-26); ABG Oxygen Saturation 96.1 % (95-100); ABG PO2 87.8 MM HG (80-95); ABG TCO2 21.3 MMOL/L (23-27); Glucose Heart Surgery 193 MG/DL (74-106); Hemoglobin Heart Surgery 12.8 G/DL (12.0-16.0); Potassium Heart/CVR 4.8 MMOL/L (3.5-5.1)
[2017-03-08] MEDS ORDERED: ALBUTEROL/IPRATROPIUM 3 ML NEB RESP TX ONE (07:46)
--- NOTE | 2017-03-08 07:59 | Cardiothoracic Progress Note ---
Cardiothoracic Subjective Interval history: Patient looks and feels okay this morning. She is awake alert and extubated and breathing comfortably. She is somewhat tachycardic and is on amiodarone infusion. She appears to be breathing comfortably and her arterial blood gases are satisfactory. Her urine output has been good overnight but she is on a Lasix infusion because of low urine output yesterday. Her creatinine has come down from 1.7-1.6 this morning. She also has had no further bowel movements after 1 dose of Imodium. Going to ask both GI and renal do see her today because of her pre-existing and ongoing renal dysfunction and also because of her repeated episodes of diarrhea and the previous [place] weeks ago of colitis. I have empirically put her on antibiotics and steroids and I have continued the Flagyl which she was on when she was transferred here from [facility]. She does have an appetite this morning and we are going to see how she does getting up out of bed but I am going to keep her in intensive care at least for another 24 hours. From a cardiac standpoint her progress appears satisfactory. Exam (Progress Note) - Constitutional Vitals: Period Temp Pulse Resp BP Sys/Berg Pulse Ox Last 24 Hr 97.0 F-98.5 F 70-139 12-33 74-160/43-97 95-100 Result/EKG - Labs CBC & BMP: 03/08/17 03:20 03/08/17 03:20 Labs: Laboratory Results - last 24 hr 03/05/17 03/06/17 03/06/17 21:07 14:20 16:56 WBC RBC Hgb Hct MCV MCH MCHC RDW Plt Count MPV Neut % (Auto) Lymph % (Auto) [place] % (Auto) Eos % (Auto) Baso % (Auto) Neut # (Auto) Lymph # (Auto) [place] # (Auto) Eos # (Auto) Baso # (Auto) Total Counted Immature Gran % Nucleated RBC % Immature Gran # Segmented Neutrophils Band Neutrophils Lymphocytes Monocytes Nucleated RBCs # Platelet Estimate Pappenheimer Bodies ABG pH ABG pCO2 ABG pO2 ABG HCO3 ABG Total CO2 ABG O2 Saturation ABG Base Excess Hemoglobin Hematocrit Sodium Potassium Chloride Carbon Dioxide Anion Gap BUN Creatinine GFR Calculation BUN/Creatinine Ratio Glucose POC Glucose 118 H 99 Calculated Osmolality Calcium Magnesium Total Bilirubin Direct Bilirubin Indirect Bilirubin AST ALT Alkaline Phosphatase Total Creatine Kinase CK-MB (CK-2) Troponin I Total Protein Albumin Globulin Albumin/Globulin Ratio Crossmatch See Detail 03/06/17 03/06/17 03/06/17 18:16 19:00 20:05 WBC RBC Hgb Hct MCV MCH MCHC RDW Plt Count MPV Neut % (Auto) Lymph % (Auto) [place] % (Auto) Eos % (Auto) Baso % (Auto) Neut # (Auto) Lymph # (Auto) [place] # (Auto) Eos # (Auto) Baso # (Auto) Total Counted Immature Gran % Nucleated RBC % Immature Gran # Segmented Neutrophils Band Neutrophils Lymphocytes Monocytes Nucleated RBCs # Platelet Estimate Pappenheimer Bodies ABG pH ABG pCO2 ABG pO2 ABG HCO3 ABG Total CO2 ABG O2 Saturation ABG Base Excess Hemoglobin Hematocrit Sodium Potassium Chloride Carbon Dioxide Anion Gap BUN Creatinine GFR Calculation BUN/Creatinine Ratio Glucose POC Glucose 110 H 145 H 104 Calculated Osmolality Calcium Magnesium Total Bilirubin Direct Bilirubin Indirect Bilirubin AST ALT Alkaline Phosphatase Total Creatine Kinase CK-MB (CK-2) Troponin I Total Protein Albumin Globulin Albumin/Globulin Ratio Crossmatch 03/06/17 03/06/17 03/06/17 21:02 22:06 23:10 WBC RBC Hgb Hct MCV MCH MCHC RDW Plt Count MPV Neut % (Auto) Lymph % (Auto) [place] % (Auto) Eos % (Auto) Baso % (Auto) Neut # (Auto) Lymph # (Auto) [place] # (Auto) Eos # (Auto) Baso # (Auto) Total Counted Immature Gran % Nucleated RBC % Immature Gran # Segmented Neutrophils Band Neutrophils Lymphocytes Monocytes Nucleated RBCs # Platelet Estimate Pappenheimer Bodies ABG pH ABG pCO2 ABG pO2 ABG HCO3 ABG Total CO2 ABG O2 Saturation ABG Base Excess Hemoglobin Hematocrit Sodium Potassium Chloride Carbon Dioxide Anion Gap BUN Creatinine GFR Calculation BUN/Creatinine Ratio Glucose POC Glucose 108 H 91 96 Calculated Osmolality Calcium Magnesium Total Bilirubin Direct Bilirubin Indirect Bilirubin AST ALT Alkaline Phosphatase Total Creatine Kinase CK-MB (CK-2) Troponin I Total Protein Albumin Globulin Albumin/Globulin Ratio Crossmatch 03/06/17 03/07/17 03/07/17 23:57 01:10 02:18 WBC RBC Hgb Hct MCV MCH MCHC RDW Plt Count MPV Neut % (Auto) Lymph % (Auto) [place] % (Auto) Eos % (Auto) Baso % (Auto) Neut # (Auto) Lymph # (Auto) [place] # (Auto) Eos # (Auto) Baso # (Auto) Total Counted Immature Gran % Nucleated RBC % Immature Gran # Segmented Neutrophils Band Neutrophils Lymphocytes Monocytes Nucleated RBCs # Platelet Estimate Pappenheimer Bodies ABG pH ABG pCO2 ABG pO2 ABG HCO3 ABG Total CO2 ABG O2 Saturation ABG Base Excess Hemoglobin Hematocrit Sodium Potassium Chloride Carbon Dioxide Anion Gap BUN Creatinine GFR Calculation BUN/Creatinine Ratio Glucose POC Glucose 100 95 108 H Calculated Osmolality Calcium Magnesium Total Bilirubin Direct Bilirubin Indirect Bilirubin AST ALT Alkaline Phosphatase Total Creatine Kinase CK-MB (CK-2) Troponin I Total Protein Albumin Globulin Albumin/Globulin Ratio Crossmatch 03/07/17 03/07/17 03/07/17 06:06 16:57 17:30 WBC RBC Hgb Hct MCV MCH MCHC RDW Plt Count MPV Neut % (Auto) Lymph % (Auto) [place] % (Auto) Eos % (Auto) Baso % (Auto) Neut # (Auto) Lymph # (Auto) [place] # (Auto) Eos # (Auto) Baso # (Auto) Total Counted Immature Gran % Nucleated RBC % Immature Gran # Segmented Neutrophils Band Neutrophils Lymphocytes Monocytes Nucleated RBCs # Platelet Estimate Pappenheimer Bodies ABG pH ABG pCO2 ABG pO2 ABG HCO3 ABG Total CO2 ABG O2 Saturation ABG Base Excess Hemoglobin Hematocrit Sodium 141 Potassium 4.9 Chloride 107 Carbon Dioxide 24 Anion Gap 14.9 BUN 20 H Creatinine 1.70 H GFR Calculation 39 BUN/Creatinine Ratio 11.00 Glucose 163 H POC Glucose 101 196 H Calculated Osmolality 287.3 Calcium 8.2 L Magnesium 2.5 H Total Bilirubin Direct Bilirubin Indirect Bilirubin AST ALT Alkaline Phosphatase Total Creatine Kinase CK-MB (CK-2) Troponin I Total Protein Albumin Globulin Albumin/Globulin Ratio Crossmatch 03/07/17 03/07/17 03/07/17 19:43 22:25 23:11 WBC RBC Hgb Hct MCV MCH MCHC RDW Plt Count MPV Neut % (Auto) Lymph % (Auto) [place] % (Auto) Eos % (Auto) Baso % (Auto) Neut # (Auto) Lymph # (Auto) [place] # (Auto) Eos # (Auto) Baso # (Auto) Total Counted Immature Gran % Nucleated RBC % Immature Gran # Segmented Neutrophils Band Neutrophils Lymphocytes Monocytes Nucleated RBCs # Platelet Estimate Pappenheimer Bodies ABG pH ABG pCO2 ABG pO2 ABG HCO3 ABG Total CO2 ABG O2 Saturation ABG Base Excess Hemoglobin Hematocrit Sodium Potassium 4.7 Chloride Carbon Dioxide Anion Gap BUN Creatinine GFR Calculation BUN/Creatinine Ratio Glucose POC Glucose 194 H 237 H Calculated Osmolality Calcium Magnesium 2.2 Total Bilirubin Direct Bilirubin Indirect Bilirubin AST ALT Alkaline Phosphatase Total Creatine Kinase CK-MB (CK-2) Troponin I Total Protein Albumin Globulin Albumin/Globulin Ratio Crossmatch 03/08/17 03/08/17 03/08/17 01:12 03:10 03:20 WBC 17.4 H D RBC 4.41 D Hgb 12.3 D Hct 37.7 MCV 85.5 L MCH 28 MCHC 32.6 RDW 15.8 Plt Count 310 D MPV 9.6 Neut % (Auto) 91.2 H Lymph % (Auto) 2.7 L [place] % (Auto) 5.1 Eos % (Auto) 0.0 Baso % (Auto) 0.1 Neut # (Auto) 15.9 H Lymph # (Auto) 0.5 L [place] # (Auto) 0.9 H Eos # (Auto) 0.0 Baso # (Auto) 0.0 Total Counted 100 Immature Gran % 0.9 Nucleated RBC % 0.0 Immature Gran # 0.16 Segmented Neutrophils 86 H Band Neutrophils 8 Lymphocytes 2 L Monocytes 4 Nucleated RBCs # 0.00 Platelet Estimate Normal Pappenheimer Bodies Public [employer] Officer ABG pH ABG pCO2 ABG pO2 ABG HCO3 ABG Total CO2 ABG O2 Saturation ABG Base Excess Hemoglobin Hematocrit Sodium Potassium Chloride Carbon Dioxide Anion Gap BUN Creatinine GFR Calculation BUN/Creatinine Ratio Glucose POC Glucose 307 H 281 H Calculated Osmolality Calcium Magnesium Total Bilirubin Direct Bilirubin Indirect Bilirubin AST ALT Alkaline Phosphatase Total Creatine Kinase CK-MB (CK-2) Troponin I Total Protein Albumin Globulin Albumin/Globulin Ratio Crossmatch 03/08/17 03/08/17 03:20 07:25 WBC RBC Hgb Hct MCV MCH MCHC RDW Plt Count MPV Neut % (Auto) Lymph % (Auto) [place] % (Auto) Eos % (Auto) Baso % (Auto) Neut # (Auto) Lymph # (Auto) [place] # (Auto) Eos # (Auto) Baso # (Auto) Total Counted Immature Gran % Nucleated RBC % Immature Gran # Segmented Neutrophils Band Neutrophils Lymphocytes Monocytes Nucleated RBCs # Platelet Estimate Pappenheimer Bodies ABG pH 7.420 ABG pCO2 32.0 L ABG pO2 87.8 ABG HCO3 20.3 ABG Total CO2 21.3 L ABG O2 Saturation 96.1 ABG Base Excess -3.3 L Hemoglobin 12.8 Hematocrit 38.0 Sodium 137 Potassium 5.0 4.8 Chloride 104 Carbon Dioxide 22 Anion Gap 16.0 H BUN 23 H Creatinine 1.60 H GFR Calculation 42 BUN/Creatinine Ratio 14.00 Glucose 251 H 193 H POC Glucose Calculated Osmolality 284.8 Calcium 7.8 L Magnesium 2.3 Total Bilirubin 0.50 Direct Bilirubin 0.30 H Indirect Bilirubin 0.2 AST 56 H ALT 17 Alkaline Phosphatase 273 H Total Creatine Kinase 189 CK-MB (CK-2) 3.9 H Troponin I 4.870 H D Total Protein 6.1 L Albumin 3.1 L Globulin 3.0 Albumin/Globulin Ratio 1.0 L Crossmatch Quality Measures - VTE Contraindication to Pharmacological VTE Prophylaxis: High Risk of Bleeding Specialty Discharge - Follow Up or Referrals
--- NOTE | 2017-03-08 08:27 | XRay Report ---
Portable chest. Indication: Shortness of breath. Comparison: March 07, 2017. The heart is mildly enlarged. Post median sternotomy. Central line remains in satisfactory position. The pulmonary vasculature is now prominent. Bilateral basilar infiltrates and pleural effusion have developed. Impression: Worsening findings suggesting congestive heart failure. PROCEDURE INTERPRETED AT [facility] DEPARTMENT OF RADIOLOGY Final Report Signed by: Dr. Melanie Nichole
--- NOTE | 2017-03-08 08:30 | Nephrology Consult Note ---
History of Present Illness Chief complaint: Increased BUN and creatinine History of present illness: Ms. Gregorio is a 67 year old female with a history of a partial nephrectomy for renal cell carcinoma a few years ago. The patient was admitted to [facility] on 03/05/2017 for cardiovascular surgery. The patient had just been admitted to [facility] about a week ago for abdominal pain and GI bleeding. She was found to have colitis at that time she improved and was discharged home. The patient then re-presented to [facility] with recurrent abdominal pain and some associated chest pain. The subsequent cardiac workup revealed significant coronary artery disease that required cardiovascular bypass surgery 2 days ago. We were asked to see the patient for increased creatinine the patient's creatinine prior to the surgery was 0.8 mg/dL since the surgery the patient's creatinine increased to 1.7 mg/dL. Today the patient's creatinine is down to 1.6 mg/dL. Currently the patient is getting normal saline at 80 cc an hour she is also getting a Lasix infusion. The patient's urine output since starting the Lasix infusion has been averaging around 80 to 100 cc an hour. The patient had a heart catheterization done on 03/04/2017 at [facility]. ROS: Head -positive headaches ENT - denies sore throat Lymphatics - denies lymphadenopathy Hematology -patient presented with bleeding a few weeks ago to [facility] and states that she used to have problems with recurrent nosebleeds Heart -positive chest pain Lungs - denies shortness of breath Abdomen - denies abdominal pain Musculoskeletal -positive arthritis Skin -she states she broke out in a severe rash when taking Tylenol a few years ago prior to her nephrectomy Neurology - denies stroke General -positive subjective fever PE: General: in no acute distress Eyes: Pupils are round and reactive, conjunctivae are clear ENT: Nose is clear, O/P is benign Neck: Supple, no thyromegaly Lymphatics: No cervical, supraclavicular or axillary adenopathy Heart: Regular rate and rhythm, no edema Lungs: Clear to auscultation anteriorly, chest expansion symmetric Abdomen: Soft, normoactive bowel sounds, no hepatomegaly Musculoskeletal: No joint erythema or effusions or joint asymmetry Skin: Normal turgor, normal hydration, no rash Neuro/Psych: Alert and cooperative with fair insight Home Medications Medication Instructions Recorded Confirmed Type Amitriptyline [Elavil] 100 mg PO BEDTIME 05/08/15 03/05/17 History Atorvastatin [Lipitor] 40 mg PO BEDTIME 05/08/15 03/05/17 History Sertraline [Zoloft] 100 mg PO BEDTIME 05/08/15 03/05/17 History Metoprolol Tartrate Tab [Lopressor 12.5 mg PO BID #60 tablet 05/22/15 03/05/17 Rx Tab] Aspirin Chew Tab 81 mg PO DAILY 03/05/17 03/05/17 History Furosemide Tab [Lasix Tab] 20 mg PO DAILY 03/05/17 03/05/17 History Pantoprazole Tab [Protonix Tab] 40 mg PO BEDTIME 03/05/17 03/05/17 History Allergies Allergy/AdvReac Type Severity Reaction Status Date / Time acetaminophen [From Tylenol] Allergy Intermediate RASH Verified 05/08/15 11:58 Sulfa (Sulfonamide Allergy Mild HEAD Verified 05/08/15 11:58 Antibiotics) CONGESTION Penicillins AdvReac Intermediate SYNCOPE Verified 05/08/15 11:58 Medical,Surgical,& Family Hx - Medical History Cardio: History of: Hypertension Neurology: No history of: Brain Aneurysm, Cerebral Hemorrhage, Cerebrovascular Accident , Cerebral Palsy, Dementia, Migraine, Multiple Sclerosis, Parkinson's Disease, Peripheral Neuropathy, Seizures, TIA, Vertigo, Neurologocal Cancer HEENT: History of: Eye Problem (cataracts both eyes), Dental Problems (no upper teeth), HEENT Problems No history of: Ear Problem, Glaucoma, Oral Cancer Endocrine: No history of: Adrenal Disease, Diabetes Mellitus (IDDM), Diabetes Mellitus ( NIDDM), Thyroid Disorder, Endocrine Cancer, Endocrine Problems Rheumatology: History of;: Rheumatological Problems No history of;: Fibromyalgia, Gout, Myasthenia Gravis, Rheumatoid Arthritis Respiratory: No history of: Asthma, Bronchitis, COPD, Intubation, Obstructive Sleep Apnea , Pulmonary Embolism, Pulmonary Hypertension, Pneumonia, Lung Cancer, Respiratory Problems Renal: No history of: Renal (Kidney) Cancer, Dialysis, Renal Failure, Renal Problems Genitourinary: No history of: Bladder Problem, Kidney Stones, Recurring Urinary Tract Infections, Genitourinary Cancer, Problems Gastrointestinal: History of: GERD, Ulcerative Colitis, GI Problems (chronic constipation) No history of: Bowel Obstruction, Clostridium Difficile, Crohn's Disease, Diverticulitis/ Diverticulosis, Esophageal Varices, Gastrointestinal Bleed, Hemorrhoids, Hematochezia, Hepatitis, Liver Problems, Pancreatitis, Polyps, Gastrointestinal Cancer Musculoskeletal: History of: Musculoskeletal Problems No history of: Amputation, Back/Neck Problems, Degenerative Disk Disease, Herniated Disk, Osteoporosis, Musculoskeletal Cancer Hematology: History of: Bleeding Problems (whenever she has bowel movements she reports bleeding.) No history of: Anemia, Clotting Problems, Sickle Cell Disease, Hematologic Cancer, Blood Disorders - Surgical History Cardiac Surgeries: Sugical HX of: Cardiac Catheterization Patient Denies: Femoral-Popliteal Bypass Graft, Cardiac Surgery, Carotid Endarterectomy, Internal Defibrillator, Vascular Access Devices Thoracic Surgeries: Surgical HX of;: Kidney (Renal Surgery), Nephrectomy ( partial left nephrectomy (05-16-15)) Patient denies;: Lithotripsy, Organ Transplant, Lobectomy Neurologic Surgeries: Patient denies: Brain Aneurysm, Cerebral Hemorrhage, Neurologic Surgery HEENT Surgeries: Surgical HX of: Eye Surgery (CATARACTS) Patient denies: Carotid Endarterectomy, Thyroid Surgery, Tonsilectomy & Adenoidectomy Abdominal Surgeries: Surgical HX of: Abdominal Surgery (hysterectomy), Cholecystectomy, Colonoscopy, EGD Patient denies: Appendectomy, Gastric Bypass Surgery, Hernia Repair, Splenectomy Reproductive Surgeries: Surgical HX of;: Cystoscopy, Dilation and Curettage, Genitourinary Surgery (bladder removal), Gynecologic Surgery (partial hysterectomy), Hysterectomy (PARTIAL HYST) Patient denies;: Breast Surgery, Section, Tubal Ligation Orthopedic Surgeries: Patient denies;: Implanted Devices, Orthopedic Surgery, Spinal Surgery, Total Hip Replacement, Total Knee Replacement - Family History Family History: Reports;: Family Diabetes (SISTER), Family Heart Disease (MOM), Family Hypertension (BROTHER), Family Psychiatric Problems (SISTER) Denies;: Family Anesthesia Reaction, Family Cancer - Social History Smoking Status: Former smoker (Quit in the 80s) Frequency of Alcohol Use: None Type of Drug Use: None Exam - Vital Signs Vital signs: Period Temp Pulse Resp BP Sys/Berg Pulse Ox Last 24 Hr 97.0 F-98.5 F 70-139 12-33 74-160/43-97 95-100 Results - Labs CBC & BMP: 03/08/17 03:20 03/08/17 03:20 Assessment and Plan (1) Acute renal failure Status: Acute Assessment and plan: Patient's creatinine prior to surgery was 0.8 mg/dL since surgery her creatinine is 1.6 mg/dL today. I suspect the patient has an ATN injury due to malperfusion to her kidneys, her urine output and creatinine are improving in the past several hours. Patient also may have a component of contrast injury although it would seem the few days immediately after the coronary angiogram her creatinine was doing okay. I do not feel any further workup is indicated at this time we will continue to monitor. Will continue the IV fluids with the Lasix infusion as this seems to be effective therapy thus far and I think the patient is in a good volemic state. Current Visit: No (2) Coronary artery disease Status: Acute Assessment and plan: Patient is today status post CABG Current Visit: Yes (3) Ischemic colitis Status: Acute Assessment and plan: Patient had a workup for GI bleeding at [place] a week or so ago and was found to have ischemic colitis Current Visit: Yes (4) Anemia Status: Acute Assessment and plan: Patient's hematocrit nadired at 29% she has been transfused and her hematocrit now is 38% Current Visit: Yes (5) History of renal cell carcinoma Status: Acute Current Visit: Yes (6) History of partial nephrectomy Status: Acute Current Visit: Yes (7) History of hypertension Status: Acute Current Visit: No Specialty Discharge - Follow Up or Referrals
[2017-03-08] MEDS: DOCUSATE SODIUM 100 MG CAPSULE PO SCH (08:43)
[2017-03-08] MEDS: PANTOPRAZOLE 40 MG TABLET PO SCH (08:43)
[2017-03-08] MEDS: ASPIRIN CHEW 81 MG TABLET PO SCH (08:43)
[2017-03-08] MEDS: CHLORHEXIDINE 0.12% ORAL RINSE 60 ML BOTTLE SWISH/SPIT SCH ×2 (08:44→20:49)
[2017-03-08] MEDS: FERROUS SULFATE 325 MG TABLET PO SCH (08:44)
--- NOTE | 2017-03-08 09:23 | Gastrointestinal Consult Note ---
Assessment and Plan - Time spent with patient Time spent with patient: Greater than 30 minutes (1) Change in bowel habit Status: Acute Current Visit: Yes (2) Coronary artery disease Status: Acute Current Visit: Yes (3) Other specified counseling Status: Acute Current Visit: Yes History of Present Illness History of present illness: Ms. Gregorio is a 67 year old female Home Medications Medication Instructions Recorded Confirmed Type Amitriptyline [Elavil] 100 mg PO BEDTIME 05/08/15 03/05/17 History Atorvastatin [Lipitor] 40 mg PO BEDTIME 05/08/15 03/05/17 History Sertraline [Zoloft] 100 mg PO BEDTIME 05/08/15 03/05/17 History Metoprolol Tartrate Tab [Lopressor 12.5 mg PO BID #60 tablet 05/22/15 03/05/17 Rx Tab] Aspirin Chew Tab 81 mg PO DAILY 03/05/17 03/05/17 History Furosemide Tab [Lasix Tab] 20 mg PO DAILY 03/05/17 03/05/17 History Pantoprazole Tab [Protonix Tab] 40 mg PO BEDTIME 03/05/17 03/05/17 History Allergies Allergy/AdvReac Type Severity Reaction Status Date / Time acetaminophen [From Tylenol] Allergy Intermediate RASH Verified 05/08/15 11:58 Sulfa (Sulfonamide Allergy Mild HEAD Verified 05/08/15 11:58 Antibiotics) CONGESTION Penicillins AdvReac Intermediate SYNCOPE Verified 05/08/15 11:58 Medical,Surgical,& Family Hx - Medical History Cardio: History of: Hypertension Neurology: No history of: Brain Aneurysm, Cerebral Hemorrhage, Cerebrovascular Accident , Cerebral Palsy, Dementia, Migraine, Multiple Sclerosis, Parkinson's Disease, Peripheral Neuropathy, Seizures, TIA, Vertigo, Neurologocal Cancer HEENT: History of: Eye Problem (cataracts both eyes), Dental Problems (no upper teeth), HEENT Problems No history of: Ear Problem, Glaucoma, Oral Cancer Endocrine: No history of: Adrenal Disease, Diabetes Mellitus (IDDM), Diabetes Mellitus ( NIDDM), Thyroid Disorder, Endocrine Cancer, Endocrine Problems Rheumatology: History of;: Rheumatological Problems No history of;: Fibromyalgia, Gout, Myasthenia Gravis, Rheumatoid Arthritis Respiratory: No history of: Asthma, Bronchitis, COPD, Intubation, Obstructive Sleep Apnea , Pulmonary Embolism, Pulmonary Hypertension, Pneumonia, Lung Cancer, Respiratory Problems Renal: No history of: Renal (Kidney) Cancer, Dialysis, Renal Failure, Renal Problems Genitourinary: No history of: Bladder Problem, Kidney Stones, Recurring Urinary Tract Infections, Genitourinary Cancer, Problems Gastrointestinal: History of: GERD, Ulcerative Colitis, GI Problems (chronic constipation) No history of: Bowel Obstruction, Clostridium Difficile, Crohn's Disease, Diverticulitis/ Diverticulosis, Esophageal Varices, Gastrointestinal Bleed, Hemorrhoids, Hematochezia, Hepatitis, Liver Problems, Pancreatitis, Polyps, Gastrointestinal Cancer Musculoskeletal: History of: Musculoskeletal Problems No history of: Amputation, Back/Neck Problems, Degenerative Disk Disease, Herniated Disk, Osteoporosis, Musculoskeletal Cancer Hematology: History of: Bleeding Problems (whenever she has bowel movements she reports bleeding.) No history of: Anemia, Clotting Problems, Sickle Cell Disease, Hematologic Cancer, Blood Disorders - Surgical History Cardiac Surgeries: Sugical HX of: Cardiac Catheterization Patient Denies: Femoral-Popliteal Bypass Graft, Cardiac Surgery, Carotid Endarterectomy, Internal Defibrillator, Vascular Access Devices Thoracic Surgeries: Surgical HX of;: Kidney (Renal Surgery), Nephrectomy ( partial left nephrectomy (05-16-15)) Patient denies;: Lithotripsy, Organ Transplant, Lobectomy Neurologic Surgeries: Patient denies: Brain Aneurysm, Cerebral Hemorrhage, Neurologic Surgery HEENT Surgeries: Surgical HX of: Eye Surgery (CATARACTS) Patient denies: Carotid Endarterectomy, Thyroid Surgery, Tonsilectomy & Adenoidectomy Abdominal Surgeries: Surgical HX of: Abdominal Surgery (hysterectomy), Cholecystectomy, Colonoscopy, EGD Patient denies: Appendectomy, Gastric Bypass Surgery, Hernia Repair, Splenectomy Reproductive Surgeries: Surgical HX of;: Cystoscopy, Dilation and Curettage, Genitourinary Surgery (bladder removal), Gynecologic Surgery (partial hysterectomy), Hysterectomy (PARTIAL HYST) Patient denies;: Breast Surgery, Section, Tubal Ligation Orthopedic Surgeries: Patient denies;: Implanted Devices, Orthopedic Surgery, Spinal Surgery, Total Hip Replacement, Total Knee Replacement - Family History Family History: Reports;: Family Diabetes (SISTER), Family Heart Disease (MOM), Family Hypertension (BROTHER), Family Psychiatric Problems (SISTER) Denies;: Family Anesthesia Reaction, Family Cancer - Social History Smoking Status: Former smoker (Quit in the 80s) Frequency of Alcohol Use: None Type of Drug Use: None Exam - Constitutional Vitals: Period Temp Pulse Resp BP Sys/Berg Pulse Ox Last 24 Hr 97.0 F-98.5 F 70-139 15-33 74-160/43-97 95-100 Results - Labs CBC & BMP: 03/08/17 03:20 03/08/17 03:20 Quality Measures - VTE Contraindication to Pharmacological VTE Prophylaxis: High Risk of Bleeding Specialty Discharge - Follow Up or Referrals Note Addendum: PLEASE NOTE -- automatic citation of patient information is unavoidable in this electronic note. I have made a reasonable effort to review the information cited , but it is not a part of my evaluation, impression, or recommendation unless specifically discussed in the dictated text that follows. As well, voice recognition software was used in the creation of this clinical note. Reasonable effort was made to identify and correct gross errors. Despite proofreading, errors in whip operator may be present, including nonsense verbiage at times. If you encounter such an error, please contact me at for discussion and correction. -- Richard Chief complaint: loose stool History of present illness: This is a new patient, a 67-year-old female seen by consultation for evaluation of loose stool in the setting of known vascular disease and with reported history of ischemic colitis. The patient is admitted to the cardiovascular surgery service under the care of Dr. Green with a primary diagnosis of coronary artery disease. The patient was admitted three days ago, via transfer from [facility], for urgent coronary bypass surgery which was accomplished on March 06. It is reported that she had diarrhea during her admission at [facility] and was diagnosed with ischemic colitis by the gastroenterology service there. I do not have access to those records at this point. We are asked to evaluate her due to these several episodes of loose stool in the pre-and post surgical period. The patient reports that she has been in her stool for years but that the frequency of the blood increased over the past two weeks or so in association with a prior hospitalization at [facility] in late January. She recalls having undergone colonoscopy during that evaluation and having had this diagnosis of ischemic colitis. She was treated conservatively in that regard but ultimately ended up with the diagnosis of surgical coronary disease. I do not find record of mesenteric angiography and there is no documentation in that regard in the cardiac catheterization record. The patient also reports that she was having abdominal prior to her cardiac surgery but that has now resolved entirely. Her bowel pattern has also improved after one dose of antidiarrheal. She is comfortable at present. She just had a loose stool which was sent testing. Patient denies fever, chills, night sweats, rigors, headache, dizziness, neck pain, visual changes, redness of the eyes, dysphagia, odynophagia, difficulty chewing, shortness of breath, weight loss, nausea, vomiting, regurgitation, hematemesis, melena, proctalgia, constipation, dysuria, skin changes, temperature regulation issues, flushing, easy bleeding/bruising, mental status change, numbness/weakness in the extremities, yellowing of the eyes/skin, cutaneous eruptions, family history of gastrointestinal cancer and colon polyps , and other complaints in general.] Review of systems: 12 point review of systems was negative except as documented above. Outpatient medications: Protonix, Lasix, aspirin, Lopressor, Lipitor, Elavil, Zoloft, Flagyl Inpatient medications: Tylenol, Duoneb, amiodarone, Elavil, aspirin, Lipitor, Narayan X, Colace, iron sulfate, Lasix, insulin, levofloxacin, loperamide, magnesium sulfate, Solu-Medrol, Flagyl, morphine sulfate, Zofran, Percocet, Protonix, neosynephrine, potassium chloride, Zoloft, 1/2NS infusion, Sonata Past Medical History: hypertension, cataract, gastroesophageal reflux, chronic constipation, hematochezia, renal cell carcinoma status post unilateral nephrectomy, hysterectomy, cholecystectomy, cystectomy Social history: negative tobacco. Negative alcohol Family history: no gastrointestinal cancers Physical examination: Vital Signs: Current vital signs reviewed and documented above. General Appearance: lying in bed. Comfortable. Head: Normocephalic. Neck: Palpation of the neck revealed no abnormalities. Eyes: No scleral icterus. No scleral injection. No conjunctival pallor. Oral Cavity: Odor of breath was normal. No drooling was observed. Lips showed no abnormalities. Floor of the mouth showed no abnormalities. Pharynx: Oropharynx was normal. Lungs: Respiration rhythm and depth was normal. Cardiovascular: Heart rate and rhythm were normal. No murmurs were appreciated. Abdomen: abdomen was not distended. Abdominal palpation revealed focal mild tenderness at the left upper quadrant and left lower quadrant and no hepatosplenomegaly. Ascites was not discovered. Abdominal auscultation revealed positive bowel sounds. Musculoskeletal System: Musculoskeletal system was grossly normal. Neurological: level of consciousness was normal. Speech was normal. Skin: General appearance was normal. Color and pigmentation were normal. No skin lesions. Laboratory: what blood count 17.4, hemoglobin 12.3, hematocrit 37.7, platelets 310, INR 1.3, PT 13.4, ALT 17, AST 56, total bilirubin 0.5, alkaline phosphatase 273 Radiology: reviewed Impressions: 1. Change in bowel pattern -- the patient comes in with a diagnosis of ischemic colitis in the setting of surgical coronary artery disease. The clinical course , pre-surgical, that she described is consistent with same and, though I don't have mesenteric angiography or access to the endoscopic record from [facility], it certainly makes sense. As well, it is encouraging that she has experienced improvement in both abdominal pain and bowel pattern post surgically. I agree with screening against Clostridium difficile and, if negative, it would be reasonable to discontinue the Flagyl. Prophylactic enteric spectrum coverage is reasonably indicated in the setting of ischemic colitis but the data supporting this is marginal and the patient, by report, has already been on coverage for more than a week at [facility]. I understand the endoscopic record from [facility] has been requested, and it will be important to confirm report findings once available. In the interim, I recommend minimization of vasoconstrictor medications to whatever extent possible and continued aggressive management of volume and systemic vascular pressure as you are doing. I also recommend holding anti- diarrheal for now and monitoring of bowel output as patient gets farther out from her surgical intervention. Should the patient experience recurrent clinical signs/symptoms of gut related ischemia, mesenteric angiography should be considered and consultation with general surgery should be taken. The patient will also benefit from outpatient gastroenterology follow-up and consideration of surveillance colonoscopy during convalescence to ensure no evidence of post-ischemic stricture formation. 2. Coronary artery disease -- managed per primary team 3. Other specified counseling -- The patient was seen for greater than 30 minutes. The patient was counseled for greater than 50% of this time regarding differential diagnosis, likely diagnosis, diagnostic and therapeutic alternatives, risks/benefits/alternatives of medications and procedures, and plan of care generally. The patient expressed understanding and wishes to proceed. Recommendations: -- continue aggressive volume and systemic pressure management -- screen for Clostridium difficile -- continued prophylactic enteric spectrum antibiotic at your discretion ( probably okay to discontinue if C. diff is negative) -- hold antidiarrheal for now -- consider mesenteric angiography and general surgery consultation with recurrent gut related symptoms -- thank you for this consultation. Dr. Overton will assume G.I. care for this patient tomorrow.
[2017-03-08] MEDS: SODIUM CHLORIDE 0.45% 1,000 ML IV SCH ×2 (10:01→20:43)
[2017-03-08] MEDS: ALBUTEROL/IPRATROPIUM 3 ML NEB RESP TX SCH ×2 (13:00→19:03)
[2017-03-08] MEDS ORDERED: DILTIAZEM 50 MG/10 ML VIAL IV ONE ×2 (14:24→14:37)
[2017-03-08] MEDS ORDERED: DILTIAZEM 100 MG VIAL.ADD IV ONE (14:36)
[2017-03-08] MEDS ORDERED: SODIUM CHLORIDE 0.9% 100 ML IV ONE (14:40)
[2017-03-08] MEDS: DILTIAZEM INJ 100 MG in SODIUM CHLORIDE 0.9% 100 ML IV SCH (14:45)
[2017-03-08] MEDS: ATORVASTATIN 40 MG TABLET PO SCH (20:44)
[2017-03-08] MEDS: SERTRALINE 100 MG TABLET PO SCH (20:45)
[2017-03-08] MEDS: AMITRIPTYLINE 100 MG TABLET PO SCH (20:47)
[2017-03-08] MEDS: HYDROmorphone 2 MG/1 ML VIAL IV PRN (20:58)
[2017-03-09] MEDS: INSULIN REGULAR 100 UNIT/ML SUBCUT SCH ×6 (00:55→19:41)
[2017-03-09] MEDS: ALBUTEROL/IPRATROPIUM 3 ML NEB RESP TX SCH ×4 (01:17→19:43)
[2017-03-09] MEDS: SODIUM CHLORIDE 0.45% 1,000 ML IV SCH ×3 (01:18→21:30)
[2017-03-09] MEDS: methylPREDNISolone SOD SUC 125 MG/2 ML VIAL IV SCH ×2 (01:25→06:28)
[2017-03-09] MEDS: DILTIAZEM INJ 100 MG in SODIUM CHLORIDE 0.9% 100 ML IV SCH ×4 (01:37→20:25)
[2017-03-09] MEDS: FUROSEMIDE INJ 100 MG in SODIUM CHLORIDE 0.9% 90 ML IV SCH ×2 (02:22→11:31)
[2017-03-09 05:20] LABS: Alanine Aminotransferase 31 U/L (13-56); Alkaline Phosphatase 237 U/L (45-117); Aspartate Amino Transferase 62 U/L (0-37); Bilirubin,Indirect 0.2 MG/DL (0.0-1.0); Bilirubin,Total < 0.39 MG/DL (0.2-1.0); Blood Urea Nitrogen 26 MG/DL (7-18); Calcium 8.2 MG/DL (8.5-10.1); Glucose 163 MG/DL (74-106); Osmolality,Calculated 283.7 MOS/KG (273-304); Potassium 3.9 MMOL/L (3.5-5.1); Sodium 138 MMOL/L (136-145); Total Protein 6.1 G/DL (6.4-8.3)
--- NOTE | 2017-03-09 06:19 | Cardiothoracic Progress Note ---
Cardiothoracic Subjective Interval history: Patient looks and feels better today. She has had no further diarrhea. Her vital signs have been stable and she is breathing comfortably. She still appears to be in atrial fib flutter rhythm. Her heart rate is reasonably well controlled at 95 200. She is on amiodarone and Cardizem. I am going to switch to oral amiodarone but continued intravenous Cardizem for rate control. Her urine output has been excellent and her creatinine is 1.2 this morning I am going to stop her Lasix infusion and continue periodic doses of Lasix. Overall I think her progress is satisfactory and that she can be moved to telemetry. Exam (Progress Note) - Constitutional Vitals: Period Temp Pulse Resp BP Sys/Berg Pulse Ox Last 24 Hr 97.0 F-97.6 F 102-113 13-38 107-154/71-100 94-100 Result/EKG - Labs CBC & BMP: 03/08/17 03:20 03/09/17 04:11 Labs: Laboratory Results - last 24 hr 03/08/17 03/08/17 03/08/17 07:25 09:06 14:17 ABG pH 7.420 ABG pCO2 32.0 L ABG pO2 87.8 ABG HCO3 20.3 ABG Total CO2 21.3 L ABG O2 Saturation 96.1 ABG Base Excess -3.3 L Hemoglobin 12.8 Hematocrit 38.0 Potassium 4.8 Glucose 193 H Sodium Chloride Carbon Dioxide Anion Gap BUN Creatinine GFR Calculation BUN/Creatinine Ratio POC Glucose 238 H 226 H Calculated Osmolality Calcium Magnesium Total Bilirubin Direct Bilirubin Indirect Bilirubin AST ALT Alkaline Phosphatase Total Creatine Kinase CK-MB (CK-2) Troponin I Total Protein Albumin Globulin Albumin/Globulin Ratio 03/08/17 03/08/17 03/08/17 17:58 19:32 23:33 ABG pH ABG pCO2 ABG pO2 ABG HCO3 ABG Total CO2 ABG O2 Saturation ABG Base Excess Hemoglobin Hematocrit Potassium Glucose Sodium Chloride Carbon Dioxide Anion Gap BUN Creatinine GFR Calculation BUN/Creatinine Ratio POC Glucose 201 H 203 H 192 H Calculated Osmolality Calcium Magnesium Total Bilirubin Direct Bilirubin Indirect Bilirubin AST ALT Alkaline Phosphatase Total Creatine Kinase CK-MB (CK-2) Troponin I Total Protein Albumin Globulin Albumin/Globulin Ratio 03/09/17 03/09/17 03:21 04:11 ABG pH ABG pCO2 ABG pO2 ABG HCO3 ABG Total CO2 ABG O2 Saturation ABG Base Excess Hemoglobin Hematocrit Potassium 3.9 Glucose 163 H Sodium 138 Chloride 99 Carbon Dioxide 31 Anion Gap 11.9 BUN 26 H Creatinine 1.20 H GFR Calculation 59 BUN/Creatinine Ratio 21.00 H POC Glucose 191 H Calculated Osmolality 283.7 Calcium 8.2 L Magnesium 2.0 Total Bilirubin < 0.39 Direct Bilirubin 0.20 Indirect Bilirubin 0.2 AST 62 H ALT 31 Alkaline Phosphatase 237 H Total Creatine Kinase 101 D CK-MB (CK-2) 2.1 Troponin I 2.600 H D Total Protein 6.1 L Albumin 3.0 L Globulin 3.1 Albumin/Globulin Ratio 0.9 L Quality Measures - VTE Contraindication to Pharmacological VTE Prophylaxis: High Risk of Bleeding Specialty Discharge - Follow Up or Referrals
[2017-03-09] MEDS: POTASSIUM CHLORIDE 20 MEQ TABLET PO PRN ×2 (06:29→07:24)
[2017-03-09 06:35] LABS: Basophils % 0.1 % (0.0-0.8); Hematocrit 34.1 VOL% (35.7-47.0); Hemoglobin 11.3 GM/DL (12.0-16.0); Immature Granulocytes % 0.7 %; Immature Granulocytes Absolute 0.12 #; Lymphocytes # 0.6 10*3/uL (1.4-4.0); Lymphocytes % 3.4 % (21.3-54.2); Mean Corpuscular HGB Conc 33.1 GM/DL (32-36); Mean Corpuscular Hemoglobin 28 PG (27-34); Mean Corpuscular Volume 85.7 FL (87-102); Mean Platelet Volume 10.1 FL (9.6-12.0); Monocytes # 1.1 10*3/uL (0.11-0.8); Monocytes % 5.9 % (1.7-12.7); Neutrophils % 89.9 % (38.7-73.9); Platelet Count 268 T/CUMM (130-400); Red Blood Count 3.98 MC/CUMM (3.8-5.5); Red Cell Distribution Width 15.6 % (9.3-17.3); White Blood Count 17.8 T/CUMM (4-12)
[2017-03-09 06:39] LABS: Band Neutrophils 2 % (0-10); Hypochromasia 1+; Lymphocytes 3 % (20-55); Microcytosis 1+; Segmented Neutrophils 86 % (50-85); Total Cells Counted 100
[2017-03-09 06:40] LABS: Platelet Estimate Normal
--- NOTE | 2017-03-09 07:19 | XRay Report ---
Exam: XR chest 1V portable Date: 03/09/2017 4:00 AM Indication: Shortness of breath Comparison: 03/08/2017 Technical: AP portable Findings: A right-sided IJ catheter is present. The catheters again cold the proximal internal jugular vein subclavian junction. The distal tip is in the superior vena cava. External cardiac leads are present. Sternotomy wires are present. Cardiomegaly is noted. Low-volume effusions are present. Some atelectatic change in the right midlung zone with underlying alveolar edema. No pneumothorax. Impression: 1. Slight improvement in aeration with decreasing alveolar edema which does persist in the bases with underlying low volume effusions and cardiomegaly 2. Remainder examination is unchanged PROCEDURE INTERPRETED AT [facility] DEPARTMENT OF RADIOLOGY Final Report Signed by: Dr. Emerson Dee
[2017-03-09] MEDS: LEVOFLOXACIN INJ 250 MG in PREMIX 1 EACH IV SCH (07:24)
[2017-03-09] MEDS: AMIODARONE 200 MG TABLET PO SCH ×2 (08:12→21:29)
[2017-03-09] MEDS: FERROUS SULFATE 325 MG TABLET PO SCH (08:12)
[2017-03-09] MEDS: PANTOPRAZOLE 40 MG TABLET PO SCH (08:12)
[2017-03-09] MEDS: ASPIRIN CHEW 81 MG TABLET PO SCH (08:13)
[2017-03-09] MEDS: HYDROmorphone 2 MG/1 ML VIAL IV PRN ×3 (08:13→21:48)
[2017-03-09] MEDS: DOCUSATE SODIUM 100 MG CAPSULE PO SCH (08:19)
[2017-03-09] MEDS: CHLORHEXIDINE 0.12% ORAL RINSE 60 ML BOTTLE SWISH/SPIT SCH ×2 (09:32→21:30)
--- NOTE | 2017-03-09 10:04 | Gastrointestinal Progress Note ---
Assessment and Plan (1) Diarrhea Status: Acute Assessment and plan: 03/09-No further diarrhea at this time. No abdominal pain, tolerating diet well. [place] [address]. Afebrile. Continues on Levaquin at this time. Endoscopy records still pending. Plan and addendum to follow by Dr Overton. Current Visit: Yes Gastroenterology - PN: Subj Interval history: CC: Diarrhea Pt admitted over the weekend with SOB and chest pain. She underwent CABG on 03/06 however following surgery had onset of loose stools and abdominal pain. She has a report of fairly recent workup at [facility] for diarrhea and rectal bleeding which she states she was told this was ischemic colitis. Pt is seen, awake and alert sitting up in bed. States she is feeling some better today. She has had no further diarrhea stools and is tolerating her diet without complaints of abdominal pain. Denies nausea or vomiting. Her stool was negative for C. diff on yesterday. Abdomen is soft, nontender. She continues on IV Levaquin at this time. Records are still pending from [facility] for prior endoscopy and report of history of ischemic colitis. ROS: Denies SOB or chest pain Exam (Progress Note) - Constitutional Vitals: Period Temp Pulse Resp BP Sys/Berg Pulse Ox Last 24 Hr 97.0 F-97.9 F 100-113 12-29 108-151/68-100 93-100 General appearance: normal weight, no acute distress - Head Head exam: Present: normal inspection, normocephalic - Eye Eye exam: Present: other (lids and conjunctiva unremarkable). Absent: scleral icterus - ENT ENT exam: Present: normal exam, normal oropharynx - Neck Neck exam: Present: normal inspection - Respiratory Respiratory exam: Present: clear to auscultation bilaterally. Absent: rales, rhonchi, wheezes - Cardiovascular Cardiovascular exam: Present: regular rate and rhythm. Absent: diastolic murmur , JVD, systolic murmur - GI/Abdominal GI/Abdominal exam: Present: normal bowel sounds, soft. Absent: ascites, distended, mass, organomegaly, tenderness - Extremities Exam Extremities exam: Present: normal inspection, full ROM - Back Exam Back exam: Present: normal inspection - Neurological Exam Neurological exam: Present: alert, oriented X3 - Psychiatric Psychiatric exam: Present: normal affect, normal mood - Skin Skin exam: Present: normal color, warm, dry Results - Labs CBC & BMP: 03/09/17 04:11 03/09/17 04:11 Lab Results: I have reviewed the past 24 hour labs Specialty Discharge - Follow Up or Referrals
--- NOTE | 2017-03-09 11:03 | Nephrology Progress Note ---
Nephrology - PN: Subj Interval history: Patient denies shortness of breath. Review of systems GI she denies nausea or vomiting Physical exam general the patient is in no acute distress, she has no pitting edema Assessment/plan 1. Acute renal failure-patient's creatinine is improved to 1.3 mg/dL, her urine output is good agree with the plan to stop her Lasix infusion. 2. Coronary artery disease-status post CABG 3. Anemia 4. History of renal cell carcinoma patient is status post partial nephrectomy about 2-3 years ago 5. Ischemic colitis Exam (PN)-Nephrology - Vital Signs Vital signs: Period Temp Pulse Resp BP Sys/Berg Pulse Ox Last 24 Hr 97.0 F-97.9 F 100-113 12-27 108-151/68-100 93-100 - Lab 03/09/17 04:11 03/09/17 04:11 Most recent lab results ABG pH 7.420 (7.35-7.45) 03/08/17 07:25 ABG pCO2 32.0 MM HG (35-48) L 03/08/17 07:25 ABG pO2 87.8 MM HG (80-95) 03/08/17 07:25 ABG HCO3 20.3 MMOL/L (20-26) 03/08/17 07:25 ABG O2 Saturation 96.1 % (95-100) 03/08/17 07:25 Calcium 8.2 MG/DL (8.5-10.1) L 03/09/17 04:11 Magnesium 2.0 MG/DL (1.8-2.4) 03/09/17 04:11 Assessment and Plan (1) Acute renal failure Status: Acute Assessment and plan: Patient's creatinine prior to surgery was 0.8 mg/dL since surgery her creatinine is 1.6 mg/dL today. I suspect the patient has an ATN injury due to malperfusion to her kidneys, her urine output and creatinine are improving in the past several hours. Patient also may have a component of contrast injury although it would seem the few days immediately after the coronary angiogram her creatinine was doing okay. I do not feel any further workup is indicated at this time we will continue to monitor. Will continue the IV fluids with the Lasix infusion as this seems to be effective therapy thus far and I think the patient is in a good volemic state. Current Visit: No (2) Coronary artery disease Status: Acute Assessment and plan: Patient is today status post CABG Current Visit: Yes (3) Ischemic colitis Status: Acute Assessment and plan: Patient had a workup for GI bleeding at [place] a week or so ago and was found to have ischemic colitis Current Visit: Yes (4) Anemia Status: Acute Assessment and plan: Patient's hematocrit nadired at 29% she has been transfused and her hematocrit now is 38% Current Visit: Yes (5) History of renal cell carcinoma Status: Acute Current Visit: Yes (6) History of partial nephrectomy Status: Acute Current Visit: Yes (7) History of hypertension Status: Acute Current Visit: No Specialty Discharge - Follow Up or Referrals
[2017-03-09] MEDS: methylPREDNISolone SOD SUC 40 MG/1 ML VIAL IV SCH (13:01)
[2017-03-09] MEDS: FUROSEMIDE 40 MG TABLET PO SCH (17:53)
[2017-03-09] MEDS: ATORVASTATIN 40 MG TABLET PO SCH (21:29)
[2017-03-09] MEDS: AMITRIPTYLINE 100 MG TABLET PO SCH (21:29)
[2017-03-09] MEDS: SERTRALINE 100 MG TABLET PO SCH (21:29)
[2017-03-10] MEDS: INSULIN REGULAR 100 UNIT/ML SUBCUT SCH ×6 (00:03→21:26)
[2017-03-10] MEDS: methylPREDNISolone SOD SUC 40 MG/1 ML VIAL IV SCH (00:10)
[2017-03-10] MEDS: ALBUTEROL/IPRATROPIUM 3 ML NEB RESP TX SCH ×4 (01:56→19:38)
[2017-03-10] MEDS: SODIUM CHLORIDE 0.45% 1,000 ML IV SCH (02:46)
--- NOTE | 2017-03-10 07:59 | Nephrology Progress Note ---
Nephrology - PN: Subj Interval history: Patient denies shortness of breath. Review of systems GI she denies nausea or vomiting Physical exam general the patient is in no acute distress, she has no pitting edema Assessment/plan 1. Acute renal failure-patient's creatinine had decreased to 1.2 mg/dL yesterday her urine output is good she had about 4 L out over 24 hours yesterday, I am going to discontinue her IV fluids at this point 2. Coronary artery disease-patient status post CABG 3. Anemia 4. Ischemic colitis Exam (PN)-Nephrology - Vital Signs Vital signs: Period Temp Pulse Resp BP Sys/Berg Pulse Ox Last 24 Hr 96.9 F-98.1 F 65-114 12-24 126-139/68-87 93-100 - Lab 03/09/17 04:11 03/09/17 04:11 Most recent lab results ABG pH 7.420 (7.35-7.45) 03/08/17 07:25 ABG pCO2 32.0 MM HG (35-48) L 03/08/17 07:25 ABG pO2 87.8 MM HG (80-95) 03/08/17 07:25 ABG HCO3 20.3 MMOL/L (20-26) 03/08/17 07:25 ABG O2 Saturation 96.1 % (95-100) 03/08/17 07:25 Calcium 8.2 MG/DL (8.5-10.1) L 03/09/17 04:11 Magnesium 2.0 MG/DL (1.8-2.4) 03/09/17 04:11 Assessment and Plan (1) Acute renal failure Status: Acute Assessment and plan: Patient's creatinine prior to surgery was 0.8 mg/dL since surgery her creatinine is 1.6 mg/dL today. I suspect the patient has an ATN injury due to malperfusion to her kidneys, her urine output and creatinine are improving in the past several hours. Patient also may have a component of contrast injury although it would seem the few days immediately after the coronary angiogram her creatinine was doing okay. I do not feel any further workup is indicated at this time we will continue to monitor. Will continue the IV fluids with the Lasix infusion as this seems to be effective therapy thus far and I think the patient is in a good volemic state. Current Visit: No (2) Coronary artery disease Status: Acute Assessment and plan: Patient is today status post CABG Current Visit: Yes (3) Ischemic colitis Status: Acute Assessment and plan: Patient had a workup for GI bleeding at [place] a week or so ago and was found to have ischemic colitis Current Visit: Yes (4) Anemia Status: Acute Assessment and plan: Patient's hematocrit nadired at 29% she has been transfused and her hematocrit now is 38% Current Visit: Yes (5) History of renal cell carcinoma Status: Acute Current Visit: Yes (6) History of partial nephrectomy Status: Acute Current Visit: Yes (7) History of hypertension Status: Acute Current Visit: No Specialty Discharge - Follow Up or Referrals
--- NOTE | 2017-03-10 08:57 | Cardiothoracic Progress Note ---
Cardiothoracic Subjective Interval history: Patient looks considerably better. Vital signs have been stable and she is breathing comfortably. Renal function appears to be returning to normal. We are going to start increasing her activity according to routine postoperative protocol but overall her progress seems satisfactory. Exam (Progress Note) - Constitutional Vitals: Period Temp Pulse Resp BP Sys/Berg Pulse Ox Last 24 Hr 96.9 F-98.1 F 65-114 16-24 126-145/68-87 93-100 Result/EKG - Labs CBC & BMP: 03/09/17 04:11 03/09/17 04:11 Labs: Laboratory Results - last 24 hr 03/09/17 03/09/17 03/09/17 11:08 16:52 18:43 POC Glucose 238 H 235 H 236 H 03/09/17 03/10/17 03/10/17 23:59 04:13 07:48 POC Glucose 244 H 254 H 266 H Quality Measures - VTE Contraindication to Pharmacological VTE Prophylaxis: High Risk of Bleeding Specialty Discharge - Follow Up or Referrals
[2017-03-10] MEDS: FERROUS SULFATE 325 MG TABLET PO SCH (10:15)
[2017-03-10] MEDS: AMIODARONE 200 MG TABLET PO SCH ×2 (10:15→21:14)
[2017-03-10] MEDS: FUROSEMIDE 40 MG TABLET PO SCH ×2 (10:15→16:09)
[2017-03-10] MEDS: PANTOPRAZOLE 40 MG TABLET PO SCH (10:16)
[2017-03-10] MEDS: DILTIAZEM CD 120 MG CAPSULE PO SCH (10:16)
[2017-03-10] MEDS: ASPIRIN CHEW 81 MG TABLET PO SCH (10:16)
[2017-03-10] MEDS: LEVOFLOXACIN INJ 250 MG in PREMIX 1 EACH IV SCH (10:17)
[2017-03-10] MEDS: DOCUSATE SODIUM 100 MG CAPSULE PO SCH (10:17)
[2017-03-10] MEDS: CHLORHEXIDINE 0.12% ORAL RINSE 60 ML BOTTLE SWISH/SPIT SCH ×2 (10:18→21:15)
[2017-03-10] MEDS: HYDROmorphone 2 MG/1 ML VIAL IV PRN ×3 (10:24→21:26)
[2017-03-10] MEDS: predniSONE 10 MG TABLET PO SCH (10:24)
--- NOTE | 2017-03-10 11:32 | Gastrointestinal Progress Note ---
Assessment and Plan (1) Diarrhea Status: Acute Assessment and plan: 03/10-no reports of diarrhea, abdominal pain. [facility] records received and noted with last colonoscopy 02/20/17, findings suggestive of ischemic colitis. Plan an addendum to followed by Dr. Overton. 03/09-No further diarrhea at this time. No abdominal pain, tolerating diet well. St[place] study [place] [address]. Afebrile. Continues on Levaquin at this time. Endoscopy records still pending. Plan and addendum to follow by Dr Overton. Current Visit: Yes Gastroenterology - PN: Subj Interval history: CC: Diarrhea Patient is seen, awake and alert sitting up in bed. She states that she is feeling much better today and had an she denies any abdominal pain, nausea or vomiting. She is tolerating her diet well at present time. No repeat lab work noted for today however she is afebrile. Abdomen is soft, nontender. ROS: Denies shortness breath or chest pain Exam (Progress Note) - Constitutional Vitals: Period Temp Pulse Resp BP Sys/Berg Pulse Ox Last 24 Hr 96.9 F-98.1 F 65-114 16-24 126-145/75-87 93-100 General appearance: normal weight, no acute distress - Head Head exam: Present: normal inspection, normocephalic - Eye Eye exam: Present: other (Lids and conjunctivae are unremarkable). Absent: scleral icterus - ENT ENT exam: Present: normal exam, normal oropharynx - Neck Neck exam: Present: normal inspection - Respiratory Respiratory exam: Present: clear to auscultation bilaterally. Absent: rales, rhonchi, wheezes - Cardiovascular Cardiovascular exam: Present: regular rate and rhythm. Absent: diastolic murmur , JVD, systolic murmur - GI/Abdominal GI/Abdominal exam: Present: normal bowel sounds, soft. Absent: ascites, distended, mass, organomegaly, tenderness - Extremities Exam Extremities exam: Present: normal inspection, full ROM - Back Exam Back exam: Present: normal inspection - Neurological Exam Neurological exam: Present: alert, oriented X3 - Psychiatric Psychiatric exam: Present: normal affect, normal mood - Skin Skin exam: Present: normal color, warm, dry Results - Labs CBC & BMP: 03/09/17 04:11 03/09/17 04:11 Lab Results: I have reviewed the past 24 hour labs Specialty Discharge - Follow Up or Referrals
[2017-03-10] MEDS: SERTRALINE 100 MG TABLET PO SCH (21:14)
[2017-03-10] MEDS: ATORVASTATIN 40 MG TABLET PO SCH (21:14)
[2017-03-10] MEDS: AMITRIPTYLINE 100 MG TABLET PO SCH (21:15)
[2017-03-11] MEDS: INSULIN REGULAR 100 UNIT/ML SUBCUT SCH ×7 (00:37→23:43)
[2017-03-11] MEDS: ALBUTEROL/IPRATROPIUM 3 ML NEB RESP TX SCH ×4 (01:52→18:54)
[2017-03-11] MEDS: HYDROmorphone 2 MG/1 ML VIAL IV PRN ×4 (02:18→21:26)
[2017-03-11 04:45] LABS: Basophils % 0.1 % (0.0-0.8); Hematocrit 33.6 VOL% (35.7-47.0); Hemoglobin 10.7 GM/DL (12.0-16.0); Immature Granulocytes % 1.9 %; Immature Granulocytes Absolute 0.28 #; Lymphocytes # 1.2 10*3/uL (1.4-4.0); Lymphocytes % 8.2 % (21.3-54.2); Mean Corpuscular HGB Conc 31.8 GM/DL (32-36); Mean Corpuscular Hemoglobin 28 PG (27-34); Mean Platelet Volume 9.9 FL (9.6-12.0); Monocytes # 1.4 10*3/uL (0.11-0.8); Monocytes % 9.3 % (1.7-12.7); Neutrophils # 12.1 10*3/uL (1.4-7.4); Neutrophils % 80.5 % (38.7-73.9); Platelet Count 374 T/CUMM (130-400); Red Blood Count 3.86 MC/CUMM (3.8-5.5); Red Cell Distribution Width 15.9 % (9.3-17.3)
[2017-03-11 05:19] LABS: Alanine Aminotransferase 49 U/L (13-56); Albumin 2.8 G/DL (3.4-5.0); Alkaline Phosphatase 293 U/L (45-117); Aspartate Amino Transferase 79 U/L (0-37); Bilirubin,Indirect 0.6 MG/DL (0.0-1.0); Blood Urea Nitrogen 37 MG/DL (7-18); Glucose 166 MG/DL (74-106); Magnesium 2.1 MG/DL (1.8-2.4); Osmolality,Calculated 289.5 MOS/KG (273-304); Potassium 4.1 MMOL/L (3.5-5.1); Sodium 139 MMOL/L (136-145); Total Protein 6.3 G/DL (6.4-8.3)
--- NOTE | 2017-03-11 06:26 | Cardiothoracic Progress Note ---
Cardiothoracic Subjective Interval history: Patient had a comfortable night. Vital signs are stable and she is breathing comfortably. We will try to increase her activities according to routine postoperative protocol but overall her progress is satisfactory. Exam (Progress Note) - Constitutional Vitals: Period Temp Pulse Resp BP Sys/Berg Pulse Ox Last 24 Hr 96.9 F-98.4 F 68-86 16-20 128-183/58-86 95-100 Result/EKG - Labs CBC & BMP: 03/11/17 03:48 03/11/17 03:48 Labs: Laboratory Results - last 24 hr 03/10/17 03/10/17 03/10/17 07:48 12:03 15:52 WBC RBC Hgb Hct MCV MCH MCHC RDW Plt Count MPV Neut % (Auto) Lymph % (Auto) [place] % (Auto) Eos % (Auto) Baso % (Auto) Neut # (Auto) Lymph # (Auto) [place] # (Auto) Eos # (Auto) Baso # (Auto) Immature Gran % Nucleated RBC % Immature Gran # Nucleated RBCs # Sodium Potassium Chloride Carbon Dioxide Anion Gap BUN Creatinine GFR Calculation BUN/Creatinine Ratio Glucose POC Glucose 266 H 304 H 279 H Calculated Osmolality Calcium Magnesium Total Bilirubin Direct Bilirubin Indirect Bilirubin AST ALT Alkaline Phosphatase Total Creatine Kinase CK-MB (CK-2) Troponin I Total Protein Albumin Globulin Albumin/Globulin Ratio 03/10/17 03/11/17 03/11/17 21:16 00:09 03:48 WBC 15.0 H RBC 3.86 Hgb 10.7 L Hct 33.6 L MCV 87.0 MCH 28 MCHC 31.8 L RDW 15.9 Plt Count 374 D MPV 9.9 Neut % (Auto) 80.5 H Lymph % (Auto) 8.2 L [place] % (Auto) 9.3 Eos % (Auto) 0.0 Baso % (Auto) 0.1 Neut # (Auto) 12.1 H Lymph # (Auto) 1.2 L [place] # (Auto) 1.4 H Eos # (Auto) 0.0 Baso # (Auto) 0.0 Immature Gran % 1.9 Nucleated RBC % 0.0 Immature Gran # 0.28 Nucleated RBCs # 0.00 Sodium Potassium Chloride Carbon Dioxide Anion Gap BUN Creatinine GFR Calculation BUN/Creatinine Ratio Glucose POC Glucose 223 H 193 H Calculated Osmolality Calcium Magnesium Total Bilirubin Direct Bilirubin Indirect Bilirubin AST ALT Alkaline Phosphatase Total Creatine Kinase CK-MB (CK-2) Troponin I Total Protein Albumin Globulin Albumin/Globulin Ratio 03/11/17 03/11/17 03:48 04:03 WBC RBC Hgb Hct MCV MCH MCHC RDW Plt Count MPV Neut % (Auto) Lymph % (Auto) [place] % (Auto) Eos % (Auto) Baso % (Auto) Neut # (Auto) Lymph # (Auto) [place] # (Auto) Eos # (Auto) Baso # (Auto) Immature Gran % Nucleated RBC % Immature Gran # Nucleated RBCs # Sodium 139 Potassium 4.1 Chloride 100 Carbon Dioxide 33 H Anion Gap 10.1 BUN 37 H Creatinine 1.00 GFR Calculation 74 BUN/Creatinine Ratio 37.00 H Glucose 166 H POC Glucose 214 H Calculated Osmolality 289.5 Calcium 9.0 Magnesium 2.1 Total Bilirubin 0.70 Direct Bilirubin 0.10 Indirect Bilirubin 0.6 AST 79 H ALT 49 Alkaline Phosphatase 293 H Total Creatine Kinase 70 D CK-MB (CK-2) 1.2 Troponin I 1.840 H D Total Protein 6.3 L Albumin 2.8 L Globulin 3.5 Albumin/Globulin Ratio 0.8 L Quality Measures - VTE Contraindication to Pharmacological VTE Prophylaxis: High Risk of Bleeding Specialty Discharge - Follow Up or Referrals
--- NOTE | 2017-03-11 08:04 | XRay Report ---
Exam: XR chest 2V Date: 03/11/2017 4:00 AM Indication: Shortness of breath Comparison: 03/09/2017 Technical:PA lateral Findings: Cardiomegaly is present with previous sternotomy. A right IJ catheter is present. Low volume effusions are present left greater than right with some underlying atelectatic change in the left base. No pneumothorax. Minimal fibrocalcific changes present over the right chest. Oxygen tubing is present. ASVD noted. Surgical changes left upper abdomen. Impression: 1. Right IJ catheter unchanged and previous sternotomy 2. Cardiomegaly with tiny basilar effusions left greater than right and minimal thickening of the minor fissure PROCEDURE INTERPRETED AT [facility] DEPARTMENT OF RADIOLOGY Final Report Signed by: Dr. Emerson Dee
[2017-03-11] MEDS: LEVOFLOXACIN INJ 500 MG in PREMIX 1 EACH IV SCH (09:03)
[2017-03-11] MEDS: DILTIAZEM CD 120 MG CAPSULE PO SCH (09:05)
[2017-03-11] MEDS: predniSONE 10 MG TABLET PO SCH (09:06)
[2017-03-11] MEDS: FERROUS SULFATE 325 MG TABLET PO SCH (09:06)
[2017-03-11] MEDS: AMIODARONE 200 MG TABLET PO SCH ×2 (09:06→21:23)
[2017-03-11] MEDS: DOCUSATE SODIUM 100 MG CAPSULE PO SCH (09:06)
[2017-03-11] MEDS: FUROSEMIDE 40 MG TABLET PO SCH ×2 (09:06→17:12)
[2017-03-11] MEDS: ASPIRIN CHEW 81 MG TABLET PO SCH (09:06)
[2017-03-11] MEDS: CHLORHEXIDINE 0.12% ORAL RINSE 60 ML BOTTLE SWISH/SPIT SCH ×2 (09:07→21:28)
[2017-03-11] MEDS: PANTOPRAZOLE 40 MG TABLET PO SCH (09:09)
[2017-03-11] MEDS: AMITRIPTYLINE 100 MG TABLET PO SCH (21:23)
[2017-03-11] MEDS: SERTRALINE 100 MG TABLET PO SCH (21:23)
[2017-03-11] MEDS: ATORVASTATIN 40 MG TABLET PO SCH (21:23)
[2017-03-12] MEDS: ALBUTEROL/IPRATROPIUM 3 ML NEB RESP TX SCH ×4 (00:35→20:39)
[2017-03-12 04:55] LABS: Basophils % 0.1 % (0.0-0.8); Eosinophils # 0.1 10*3/uL (0.0-0.87); Eosinophils % 0.4 % (0.00-10.9); Hematocrit 34.3 VOL% (35.7-47.0); Hemoglobin 11.2 GM/DL (12.0-16.0); Immature Granulocytes % 1.7 %; Immature Granulocytes Absolute 0.25 #; Lymphocytes # 2.3 10*3/uL (1.4-4.0); Lymphocytes % 15.4 % (21.3-54.2); Mean Corpuscular HGB Conc 32.7 GM/DL (32-36); Mean Corpuscular Hemoglobin 28 PG (27-34); Mean Corpuscular Volume 86.4 FL (87-102); Mean Platelet Volume 9.2 FL (9.6-12.0); Monocytes # 1.7 10*3/uL (0.11-0.8); Monocytes % 11.3 % (1.7-12.7); Neutrophils # 10.4 10*3/uL (1.4-7.4); Neutrophils % 71.1 % (38.7-73.9); Platelet Count 335 T/CUMM (130-400); Red Blood Count 3.97 MC/CUMM (3.8-5.5); Red Cell Distribution Width 15.8 % (9.3-17.3); White Blood Count 14.6 T/CUMM (4-12)
[2017-03-12] MEDS: HYDROmorphone 2 MG/1 ML VIAL IV PRN ×5 (04:56→21:30)
[2017-03-12] MEDS: INSULIN REGULAR 100 UNIT/ML SUBCUT SCH ×5 (04:57→21:30)
[2017-03-12 05:30] LABS: Alanine Aminotransferase 44 U/L (13-56); Albumin 2.6 G/DL (3.4-5.0); Alkaline Phosphatase 269 U/L (45-117); Aspartate Amino Transferase 46 U/L (0-37); Bilirubin,Indirect 0.5 MG/DL (0.0-1.0); Blood Urea Nitrogen 28 MG/DL (7-18); Calcium 8.7 MG/DL (8.5-10.1); Glucose 115 MG/DL (74-106); Potassium 3.8 MMOL/L (3.5-5.1); Sodium 143 MMOL/L (136-145)
--- NOTE | 2017-03-12 06:20 | Cardiothoracic Progress Note ---
Cardiothoracic Subjective Interval history: Patient had a comfortable night. Vital signs have been stable and she is breathing comfortably. She is increasing her activity as tolerated. Overall her progress is satisfactory. Exam (Progress Note) - Constitutional Vitals: Period Temp Pulse Resp BP Sys/Berg Pulse Ox Last 24 Hr 96.8 F-98.8 F 69-86 16-20 128-181/56-87 94-100 Result/EKG - Labs CBC & BMP: 03/12/17 03:04 03/12/17 03:04 Labs: Laboratory Results - last 24 hr 03/11/17 03/11/17 03/11/17 08:03 11:55 16:01 WBC RBC Hgb Hct MCV MCH MCHC RDW Plt Count MPV Neut % (Auto) Lymph % (Auto) [place] % (Auto) Eos % (Auto) Baso % (Auto) Neut # (Auto) Lymph # (Auto) [place] # (Auto) Eos # (Auto) Baso # (Auto) Immature Gran % Nucleated RBC % Immature Gran # Nucleated RBCs # Sodium Potassium Chloride Carbon Dioxide Anion Gap BUN Creatinine GFR Calculation BUN/Creatinine Ratio Glucose POC Glucose 168 H 139 H 185 H Calculated Osmolality Calcium Magnesium Total Bilirubin Direct Bilirubin Indirect Bilirubin AST ALT Alkaline Phosphatase Total Creatine Kinase CK-MB (CK-2) Troponin I Total Protein Albumin Globulin Albumin/Globulin Ratio 03/11/17 03/12/17 03/12/17 21:24 03:04 03:04 WBC 14.6 H RBC 3.97 Hgb 11.2 L Hct 34.3 L MCV 86.4 L MCH 28 MCHC 32.7 RDW 15.8 Plt Count 335 MPV 9.2 L Neut % (Auto) 71.1 Lymph % (Auto) 15.4 L [place] % (Auto) 11.3 Eos % (Auto) 0.4 Baso % (Auto) 0.1 Neut # (Auto) 10.4 H Lymph # (Auto) 2.3 [place] # (Auto) 1.7 H Eos # (Auto) 0.1 Baso # (Auto) 0.0 Immature Gran % 1.7 Nucleated RBC % 0.0 Immature Gran # 0.25 Nucleated RBCs # 0.00 Sodium 143 Potassium 3.8 Chloride 100 Carbon Dioxide 36 H Anion Gap 10.8 BUN 28 H Creatinine 1.00 GFR Calculation 74 BUN/Creatinine Ratio 28.00 H Glucose 115 H POC Glucose 254 H Calculated Osmolality 291.0 Calcium 8.7 Magnesium 2.0 Total Bilirubin 0.60 Direct Bilirubin 0.10 Indirect Bilirubin 0.5 AST 46 H ALT 44 Alkaline Phosphatase 269 H Total Creatine Kinase 44 D CK-MB (CK-2) < 1.0 Troponin I 1.670 H Total Protein 6.0 L Albumin 2.6 L Globulin 3.4 Albumin/Globulin Ratio 0.7 L Quality Measures - VTE Contraindication to Pharmacological VTE Prophylaxis: High Risk of Bleeding Specialty Discharge - Follow Up or Referrals
--- NOTE | 2017-03-12 07:21 | EKG Report ---
Stationary ECG Study [facility] Test Date: 03/12/2017 7:22:24 AM Pat Name: BANG TRINIDAD Department: Room: 264 Gender: F Channel Opener: DORIS : 1950 Requested by: Rd Gutierrez Order Number: [id number] Reading MD: MANOHAR COREY Intervals [place] Rate: 85 P: 16 OK: 131 QRS: -17 QRSD: 97 T: -22 QT: 373 QTc: 415 Interpretive Statements SINUS RHYTHM NONSPECIFIC T-WAVE ABNORMALITY Electronically Signed On 03-12-17 07:33:46 CDT by MANOHAR COREY [email or web address]
--- NOTE | 2017-03-12 08:44 | XRay Report ---
Exam: XR chest 2V Indication: Shortness of breath, history of CABG, cardiomegaly Comparison study: 03/11/2017 Findings: Critics silhouette is enlarged, similar to prior. Median sternotomy wiring is again noted. There has been slight worsening of perihilar and basilar interstitial opacities suggesting developing interstitial edema and basilar atelectasis. There is no focal consolidation. Trace left pleural effusion is suspected. No pneumothorax is identified. Right-sided central venous catheter is in similar position. Impression: Slight worsening of perihilar and basilar interstitial opacities may represent developing interstitial edema and/or atelectasis. Trace left pleural effusion is suspected. Stable position of right-sided central line. PROCEDURE INTERPRETED AT [facility] DEPARTMENT OF RADIOLOGY Final Report Signed by: Miguel Oropeza
[2017-03-12] MEDS: DOCUSATE SODIUM 100 MG CAPSULE PO SCH (08:56)
[2017-03-12] MEDS: predniSONE 10 MG TABLET PO SCH (08:56)
[2017-03-12] MEDS: DILTIAZEM CD 120 MG CAPSULE PO SCH (08:56)
[2017-03-12] MEDS: AMIODARONE 200 MG TABLET PO SCH ×2 (08:57→21:20)
[2017-03-12] MEDS: FERROUS SULFATE 325 MG TABLET PO SCH (08:57)
[2017-03-12] MEDS: LEVOFLOXACIN INJ 500 MG in PREMIX 1 EACH IV SCH (08:57)
[2017-03-12] MEDS: PANTOPRAZOLE 40 MG TABLET PO SCH (08:57)
[2017-03-12] MEDS: FUROSEMIDE 40 MG TABLET PO SCH ×2 (08:57→16:23)
[2017-03-12] MEDS: ASPIRIN CHEW 81 MG TABLET PO SCH (08:57)
[2017-03-12] MEDS: CHLORHEXIDINE 0.12% ORAL RINSE 60 ML BOTTLE SWISH/SPIT SCH ×2 (08:58→21:20)
[2017-03-12] MEDS: ATORVASTATIN 40 MG TABLET PO SCH (21:20)
[2017-03-12] MEDS: AMITRIPTYLINE 100 MG TABLET PO SCH (21:20)
[2017-03-12] MEDS: SERTRALINE 100 MG TABLET PO SCH (21:20)
[2017-03-13] MEDS: ALBUTEROL/IPRATROPIUM 3 ML NEB RESP TX SCH ×4 (01:54→18:58)
[2017-03-13] MEDS: HYDROmorphone 2 MG/1 ML VIAL IV PRN ×6 (02:09→22:02)
[2017-03-13] MEDS: FERROUS SULFATE 325 MG TABLET PO SCH (08:33)
[2017-03-13] MEDS: DILTIAZEM CD 120 MG CAPSULE PO SCH (08:33)
[2017-03-13] MEDS: AMIODARONE 200 MG TABLET PO SCH ×2 (08:34→21:55)
[2017-03-13] MEDS: PANTOPRAZOLE 40 MG TABLET PO SCH (08:34)
[2017-03-13] MEDS: ASPIRIN CHEW 81 MG TABLET PO SCH (08:34)
[2017-03-13] MEDS: predniSONE 10 MG TABLET PO SCH (08:34)
[2017-03-13] MEDS: DOCUSATE SODIUM 100 MG CAPSULE PO SCH (08:34)
[2017-03-13] MEDS: FUROSEMIDE 40 MG TABLET PO SCH ×2 (08:34→16:12)
[2017-03-13] MEDS: INSULIN REGULAR 100 UNIT/ML SUBCUT SCH ×4 (08:35→21:56)
[2017-03-13] MEDS: LEVOFLOXACIN INJ 500 MG in PREMIX 1 EACH IV SCH (08:38)
--- NOTE | 2017-03-13 09:14 | Cardiothoracic Progress Note ---
Cardiothoracic Subjective Interval history: Patient looks and feels better today vital signs have been stable and she is breathing comfortably. She is gradually trying to increase her activities. I will plan tentatively is for swing bed placement for the first of next week. She prefers [facility] for swing bed and we will see if we can arrange this. Exam (Progress Note) - Constitutional Vitals: Period Temp Pulse Resp BP Sys/Berg Pulse Ox Last 24 Hr 97.6 F-98.3 F 80-94 16-94 124-145/69-87 90-100 Result/EKG - Labs CBC & BMP: 03/12/17 03:04 03/12/17 03:04 Labs: Laboratory Results - last 24 hr 03/12/17 03/12/17 03/12/17 11:56 15:11 18:20 POC Glucose 192 H 219 H 178 H 03/12/17 03/13/17 21:31 08:13 POC Glucose 149 H 138 H Quality Measures - VTE Contraindication to Pharmacological VTE Prophylaxis: High Risk of Bleeding Specialty Discharge - Follow Up or Referrals
[2017-03-13] MEDS: CHLORHEXIDINE 0.12% ORAL RINSE 60 ML BOTTLE SWISH/SPIT SCH ×2 (09:16→21:57)
[2017-03-13] MEDS: ATORVASTATIN 40 MG TABLET PO SCH (21:55)
[2017-03-13] MEDS: AMITRIPTYLINE 100 MG TABLET PO SCH (21:55)
[2017-03-13] MEDS: SERTRALINE 100 MG TABLET PO SCH (21:55)
[2017-03-14] MEDS: ALBUTEROL/IPRATROPIUM 3 ML NEB RESP TX SCH ×4 (00:20→19:57)
[2017-03-14] MEDS: HYDROmorphone 2 MG/1 ML VIAL IV PRN ×6 (03:17→22:34)
[2017-03-14] MEDS: INSULIN REGULAR 100 UNIT/ML SUBCUT SCH ×4 (07:31→21:13)
[2017-03-14] MEDS: LEVOFLOXACIN INJ 500 MG in PREMIX 1 EACH IV SCH (08:36)
[2017-03-14] MEDS: DILTIAZEM CD 120 MG CAPSULE PO SCH (08:38)
[2017-03-14] MEDS: DOCUSATE SODIUM 100 MG CAPSULE PO SCH (08:38)
[2017-03-14] MEDS: FERROUS SULFATE 325 MG TABLET PO SCH (08:38)
[2017-03-14] MEDS: ASPIRIN CHEW 81 MG TABLET PO SCH (08:39)
[2017-03-14] MEDS: FUROSEMIDE 40 MG TABLET PO SCH ×2 (08:39→15:48)
[2017-03-14] MEDS: CHLORHEXIDINE 0.12% ORAL RINSE 60 ML BOTTLE SWISH/SPIT SCH ×2 (08:39→21:07)
[2017-03-14] MEDS: predniSONE 10 MG TABLET PO SCH (08:39)
[2017-03-14] MEDS: PANTOPRAZOLE 40 MG TABLET PO SCH (08:39)
[2017-03-14] MEDS: AMIODARONE 200 MG TABLET PO SCH ×2 (08:39→21:07)
--- NOTE | 2017-03-14 09:11 | Cardiothoracic Progress Note ---
Cardiothoracic Subjective Interval history: Patient is steadily improving. Vital signs are stable and she is breathing comfortably. Exam (Progress Note) - Constitutional Vitals: Period Temp Pulse Resp BP Sys/Berg Pulse Ox Last 24 Hr 97.5 F-100.0 F 70-94 14-20 110-121/57-71 91-100 Result/EKG - Labs CBC & BMP: 03/12/17 03:04 03/12/17 03:04 Labs: Laboratory Results - last 24 hr 03/13/17 03/13/17 03/13/17 11:44 15:44 19:30 POC Glucose 162 H 220 H 162 H 03/14/17 07:18 POC Glucose 131 H Quality Measures - VTE Contraindication to Pharmacological VTE Prophylaxis: High Risk of Bleeding Specialty Discharge - Follow Up or Referrals
[2017-03-14] MEDS: MAGNESIUM HYDROXIDE SUSP 30 ML UDCUP PO PRN (15:47)
[2017-03-14] MEDS: SERTRALINE 100 MG TABLET PO SCH (21:07)
[2017-03-14] MEDS: AMITRIPTYLINE 100 MG TABLET PO SCH (21:07)
[2017-03-14] MEDS: ATORVASTATIN 40 MG TABLET PO SCH (21:07)
[2017-03-15] MEDS: ALBUTEROL/IPRATROPIUM 3 ML NEB RESP TX SCH ×4 (01:20→19:19)
[2017-03-15] MEDS: HYDROmorphone 2 MG/1 ML VIAL IV PRN ×4 (07:21→21:30)
--- NOTE | 2017-03-15 08:07 | Cardiothoracic Progress Note ---
Cardiothoracic Subjective Interval history: No real problems. Vital signs are stable and she is breathing comfortably and gradually increasing her activity level. She desires to go to a swing bed following hospitalization so we will try to arrange for this tomorrow. Exam (Progress Note) - Constitutional Vitals: Period Temp Pulse Resp BP Sys/Berg Pulse Ox Last 24 Hr 97.9 F-99.5 F 76-97 16-20 106-140/67-78 93-99 Result/EKG - Labs CBC & BMP: 03/12/17 03:04 03/12/17 03:04 Labs: Laboratory Results - last 24 hr 03/14/17 03/14/17 03/14/17 11:43 17:11 21:15 POC Glucose 177 H 172 H 180 H Quality Measures - VTE Contraindication to Pharmacological VTE Prophylaxis: High Risk of Bleeding Specialty Discharge - Follow Up or Referrals
[2017-03-15] MEDS: LEVOFLOXACIN INJ 500 MG in PREMIX 1 EACH IV SCH (08:35)
[2017-03-15] MEDS: DOCUSATE SODIUM 100 MG CAPSULE PO SCH (08:36)
[2017-03-15] MEDS: PANTOPRAZOLE 40 MG TABLET PO SCH (08:36)
[2017-03-15] MEDS: AMIODARONE 200 MG TABLET PO SCH ×2 (08:36→21:27)
[2017-03-15] MEDS: ASPIRIN CHEW 81 MG TABLET PO SCH (08:36)
[2017-03-15] MEDS: FERROUS SULFATE 325 MG TABLET PO SCH (08:36)
[2017-03-15] MEDS: DILTIAZEM CD 120 MG CAPSULE PO SCH (08:36)
[2017-03-15] MEDS: predniSONE 10 MG TABLET PO SCH (08:36)
[2017-03-15] MEDS: FUROSEMIDE 40 MG TABLET PO SCH ×2 (08:36→17:19)
[2017-03-15] MEDS: INSULIN REGULAR 100 UNIT/ML SUBCUT SCH ×4 (08:37→21:28)
[2017-03-15] MEDS: CHLORHEXIDINE 0.12% ORAL RINSE 60 ML BOTTLE SWISH/SPIT SCH ×2 (08:38→21:28)
[2017-03-15] MEDS: AMITRIPTYLINE 100 MG TABLET PO SCH (21:27)
[2017-03-15] MEDS: ATORVASTATIN 40 MG TABLET PO SCH (21:27)
[2017-03-15] MEDS: SERTRALINE 100 MG TABLET PO SCH (21:28)
[2017-03-16] MEDS: ALBUTEROL/IPRATROPIUM 3 ML NEB RESP TX SCH ×4 (01:28→19:46)
[2017-03-16] MEDS: HYDROmorphone 2 MG/1 ML VIAL IV PRN ×2 (01:49→10:04)
--- NOTE | 2017-03-16 06:34 | Cardiothoracic Progress Note ---
Cardiothoracic Subjective Interval history: Patient is doing better. Vital signs are stable and she is breathing comfortably. She is increasing her activity as tolerated. Hopefully she will be ready for transfer to a swing bed before [facility]. Exam (Progress Note) - Constitutional Vitals: Period Temp Pulse Resp BP Sys/Berg Pulse Ox Last 24 Hr 96.8 F-99.1 F 70-105 16-93 117-147/67-80 89-100 Result/EKG - Labs CBC & BMP: 03/12/17 03:04 03/12/17 03:04 Labs: Laboratory Results - last 24 hr 03/15/17 03/15/17 03/15/17 07:15 11:35 16:31 POC Glucose 103 168 H 192 H 03/15/17 21:26 POC Glucose 186 H Quality Measures - VTE Contraindication to Pharmacological VTE Prophylaxis: High Risk of Bleeding Specialty Discharge - Follow Up or Referrals
[2017-03-16] MEDS: INSULIN REGULAR 100 UNIT/ML SUBCUT SCH ×4 (08:45→22:26)
[2017-03-16] MEDS: FUROSEMIDE 40 MG TABLET PO SCH ×2 (08:48→16:02)
[2017-03-16] MEDS: PANTOPRAZOLE 40 MG TABLET PO SCH (08:48)
[2017-03-16] MEDS: DOCUSATE SODIUM 100 MG CAPSULE PO SCH (08:48)
[2017-03-16] MEDS: DILTIAZEM CD 120 MG CAPSULE PO SCH (08:48)
[2017-03-16] MEDS: ASPIRIN CHEW 81 MG TABLET PO SCH (08:48)
[2017-03-16] MEDS: FERROUS SULFATE 325 MG TABLET PO SCH (08:48)
[2017-03-16] MEDS: predniSONE 10 MG TABLET PO SCH (08:48)
[2017-03-16] MEDS: LEVOFLOXACIN INJ 500 MG in PREMIX 1 EACH IV SCH (08:49)
[2017-03-16] MEDS: CHLORHEXIDINE 0.12% ORAL RINSE 60 ML BOTTLE SWISH/SPIT SCH ×2 (08:49→21:41)
[2017-03-16] MEDS: AMIODARONE 200 MG TABLET PO SCH ×2 (08:54→21:40)
[2017-03-16] MEDS: MEPERIDINE 50 MG TABLET PO PRN ×3 (14:17→23:58)
[2017-03-16] MEDS: MAGNESIUM HYDROXIDE SUSP 30 ML UDCUP PO PRN (14:17)
[2017-03-16] MEDS: SERTRALINE 100 MG TABLET PO SCH (21:40)
[2017-03-16] MEDS: ATORVASTATIN 40 MG TABLET PO SCH (21:40)
[2017-03-16] MEDS: AMITRIPTYLINE 100 MG TABLET PO SCH (21:40)
[2017-03-17] MEDS: ALBUTEROL/IPRATROPIUM 3 ML NEB RESP TX SCH ×2 (00:57→06:58)
[2017-03-17] MEDS: FERROUS SULFATE 325 MG TABLET PO SCH (08:21)
[2017-03-17] MEDS: predniSONE 10 MG TABLET PO SCH (08:21)
[2017-03-17] MEDS: FUROSEMIDE 40 MG TABLET PO SCH ×2 (08:21→17:28)
[2017-03-17] MEDS: DOCUSATE SODIUM 100 MG CAPSULE PO SCH (08:21)
[2017-03-17] MEDS: DILTIAZEM CD 120 MG CAPSULE PO SCH (08:21)
[2017-03-17] MEDS: AMIODARONE 200 MG TABLET PO SCH (08:21)
[2017-03-17] MEDS: PANTOPRAZOLE 40 MG TABLET PO SCH (08:21)
[2017-03-17] MEDS: ASPIRIN CHEW 81 MG TABLET PO SCH (08:21)
[2017-03-17] MEDS: LEVOFLOXACIN INJ 500 MG in PREMIX 1 EACH IV SCH (08:22)
[2017-03-17] MEDS: CHLORHEXIDINE 0.12% ORAL RINSE 60 ML BOTTLE SWISH/SPIT SCH (08:22)
[2017-03-17] MEDS: INSULIN REGULAR 100 UNIT/ML SUBCUT SCH ×3 (08:23→17:28)
--- NOTE | 2017-03-17 08:40 | Discharge Summary ---
Hospital Course - Hospital Course Hospital Course: History of present illness: Patient is a 67-year-old lady was admitted to [facility] for evaluation of increasing shortness of breath and exertional chest discomfort. Part of her evaluation included cardiac catheterization which showed critical disease of the anterior descending and circumflex marginal coronary arteries. Patient was referred for urgent bypass surgery. Past medical history review of systems social history and family history are documented in her admission note. Hospital course: Patient was taken to the operating room where two-vessel grafting was performed with saphenous vein graft to the anterior descending and circumflex marginal coronary arteries. Left internal mammary artery was dissected free and found to be too small to be adequate for bypass grafting. Patient's postoperative course was essentially uncomplicated and she was transferred to a swing bed for further recuperation. Discharge medications are listed below and she is to return for follow-up in 1 month. Specialty Discharge - Follow Up or Referrals Follow up with: Rd Green MD [Physician] - 1 Month Discharge Plan - Discharge Data Disposition: Swing Bed, [facility] Based, [facility] Condition at Discharge: Stable Discharge Diet: advance to your usual diet Activity: resume usual activities as tolerated Hygiene: no restrictions Weight Bearing at Discharge: full weight bearing Driving: not until seen by doctor - Discharge Medications New Albuterol/Ipratropium Neb [Duoneb] 3 ml RESP TX RT Q6H #30 Aspirin Chew Tab 81 mg PO DAILY tablet Meperidine Tab [Demerol Tab] 25 mg PO Q4H PRN tablet PRN Reason: Pain Severe (8-10) Amiodarone Tab [Cordarone Tab] 200 mg PO BID #60 tablet Amitriptyline [Elavil] 100 mg PO BEDTIME tablet Atorvastatin [Lipitor] 40 mg PO BEDTIME tablet Diltiazem Cd Cap [Cardizem CD] 120 mg PO DAILY #30 capsule Furosemide Tab [Lasix Tab] 40 mg PO DAILY #30 tablet Levofloxacin Inj [Levaquin Inj] 500 mg PO Q24H #30 Pantoprazole Tab [Protonix Tab] 40 mg PO DAILY #30 tablet Potassium Chloride Cap/Tab [K Dur] 20 meq PO DAILY #30 tablet predniSONE TAB [PredniSONE] 5 mg PO DAILY #30 tablet Sertraline [Zoloft] 100 mg PO BEDTIME tablet Continue Amitriptyline [Elavil] 100 mg PO BEDTIME Sertraline [Zoloft] 100 mg PO BEDTIME Atorvastatin [Lipitor] 40 mg PO BEDTIME Aspirin Chew Tab 81 mg PO DAILY Pantoprazole Tab [Protonix Tab] 40 mg PO BEDTIME Discontinued Metoprolol Tartrate Tab [Lopressor Tab] 12.5 mg PO BID #60 tablet Furosemide Tab [Lasix Tab] 20 mg PO DAILY - Follow Up or Referral - Forms/Instructions Instructions: Coronary Artery Bypass Graft (DC), Heart Healthy Diet (GEN), Sternal Precautions (GEN) Exam - Constitutional Vitals: Period Temp Pulse Resp BP Sys/Berg Pulse Ox Last 24 Hr 98.0 F-99.8 F 70-100 15-20 117-156/65-94 95-99 Discharge Results Procedures and tests throughout hospitalization: Pending Orders 03/05/17 21:07 Fresh Frozen Plasma Routine Red Blood Cells Leuko Red Routine Single Donor Platelets Routine Type and Screen Routine Labs on day of discharge: Labs from last 24 hours 03/17/17 03/16/17 03/16/17 07:21 19:27 15:25 POC Glucose 80 107 H 190 H 03/16/17 11:41 POC Glucose 157 H DS: Provider Date of admission: 03/05/17 19:53 Primary care physician: . No PCP Attending physician on admission: Rd Green MD Consults: 03/07/17 08:17 Consult to Cardiac Rehabilitation [CONS] Routine Reason for Cardiac Rehabilitation: Other Consult Comment: Post CABG/heart surgery Consult to Diabetes [facility], Educator [CONS] Routine Reason for Psych Sales Specialist: Diabetes Education Initial Insulin Education Consult Comment: insulin education Consult to Dietitian [CONS] Routine Reason for Dietitian: Dietary Consult Consult Comment: Cardiac, low salt, low cholesterol diet Consult to Physical Therapy [CONS] Routine Reason for Physical Therapy: Other Consult Comment: CV Rehab 03/07/17 18:21 Consult to Physician [CONS] Routine Comment: history of nephrectomy,oliguric Consulting Provider: Carlos Yarbrough When should Consulting Provider be notified: In am Consult to Specialist Group: Nephrology When should Consulting Provider be notified: In am Person Notified: Dr Yarbrough Date Notified: 03/08/17 Time Notified: 08:11 Consult Notification Comment: notified of consult 03/07/17 18:26 Consult to Physician [CONS] Routine Comment: ischemic colitis Consulting Provider: Richard,Braden V When should Consulting Provider be notified: In am Consult to Specialist Group: Gastroenterology When should Consulting Provider be notified: In am Person Notified: Dr Ramos Date Notified: 03/08/17 Time Notified: 08:21 Consult Notification Comment: notified of consult Discharging clinician: Rd Green MD Expected date of discharge: 03/17/17
[2017-03-17] MEDS: LACTULOSE 20 GM/30 ML UDCUP PO SCH ×2 (09:20→14:54)
[2017-03-17] MEDS: MEPERIDINE 50 MG TABLET PO PRN (12:58)
[2017-03-17] MEDS ORDERED: SODIUM PHOSPHATE ENEMA 133 ML BOTTLE RECTAL ONE (14:52)
[2017-03-17 17:11] VITALS: BP 124/76
--- NOTE | 2017-03-23 08:34 | Physician Query Form ---
CLICK EDIT DOCUMENT TO SELECT QUERY ANSWER --> OK --> SIGN Myriam Suarez RN Clinical [employer] Developer W) [phone] (f) [phone] [email or web address] PROVIDERS: Make your selection(s) from the choices in EACH section by typing an "x" and enter comments in the comment section. Please use your independent medical judgment in providing your response. This request does not imply that any particular answer is desired or expected. CLINICAL INDICATORS: (Providers should not edit this section) Based on documentation of "acute renal failure. Patient's creatinine prior to surgery was 0.8 mg/dL since surgery her creatinine is 1.6 mg/dL today. I suspect the patient has an ATN injury due to malperfusion to her kidneys, her urine output and creatinine are improving in the past several hours. Patient also may have a component of contrast injury although it would seem the few days immediately after the coronary angiogram her creatinine was doing okay." Clarify which of the following most accurately represents the patient's renal status: ( ) Acute renal failure with necrosis ( ) tubular ( ) medullary ( ) cortical ( ) Acute kidney injury (non-traumatic) ( x) Acute renal failure ( ) Other, please specify: ( ) Clinically unable to determine COMMENTS: PLEASE ALSO DOCUMENT RESPONSE IN PROGRESS NOTES AND/OR DISCHARGE SUMMARY Use of terms such as suspected, likely, or probable (associated with a specific diagnosis that is being evaluated, monitored, or treated as if it exists) are acceptable and can be restated in the discharge summary if not ruled out. MTDD
== END 2017-03-17 18:08 | disposition swing bed (61) | DRG 235 ==
LOC: N.TELES 19:53 → EDBD 19:53 → N.CVR 03-06 09:43 → N.ICU 03-07 14:34 → N.TELES 03-09 13:08

== ENCOUNTER 2017-04-13 13:59 | Inpatient (IN) ==
[2017-04-13] MEDS ORDERED: KETOROLAC 30 MG/1 ML VIAL IV STA (14:24)
--- NOTE | 2017-04-13 14:37 | Emergency Department Note ---
Alejo Millard Brooke, am scribing for, and in the presence of, Duke Carl MD 14:28 . Meseret Millard James D, MD, personally performed the services described in this documentation, ascribed by Yolanda Dhillon in my presence, and it is both accurate and complete 436 . Arrival - Arrival Chief Complaint: Chest Pain ED Nursing Triage Note: pt was transfer from [facility] for cp. burning pain on the rt side of chest and sharp pain on the lt side of her chest. pt had cabg in february Mode of Arrival: Stretcher Limitations: No Limitations Source: Patient, RN Notes Reviewed Time Seen by Provider: 04/13/17 14:20 - History of Present Illness HPI Narrative: Patient is a 67 year old female brought into the ED by EMS, from [facility] , with c/o shortness of breath and chest pain that started yesterday. Patient says the shortness of breath is brought on by exertion. She says the chest pain is located across her chest. She describes the pain as constant, sharp, and burning. Patient says her chest is tender to palpation. Patient saw her home health nurse, this morning, and was told to go to the hospital. While at [place], she says they did a chest x-ray and she states "they told me it was my heart." She had bypass surgery done, in February, and she says todays pain feels the same as when she had the AL. She also has PMHx of HTN, rheumatological problems, ulcerative colitis, and GERD. She quit smoking in 1984. Patient's Bank Compliance Officer is Dr. Palomo at [place] and Dr. Green performed her bypass surgery. Onset (ago): day(s) (2) Date of Last Menstrual Period: hyst Allergies/Adverse Reactions: Allergies Allergy/AdvReac Type Severity Reaction Status Date / Time acetaminophen [From Tylenol] Allergy Intermediate RASH Verified 05/08/15 11:58 Sulfa (Sulfonamide Allergy Mild HEAD Verified 05/08/15 11:58 Antibiotics) CONGESTION Penicillins AdvReac Intermediate SYNCOPE Verified 05/08/15 11:58 Home Medications: Home Medications Medication Instructions Recorded Confirmed Type Atorvastatin [Lipitor] 40 mg PO BEDTIME 05/08/15 04/13/17 History Amiodarone Tab [Cordarone Tab] 200 mg PO BID #60 tablet 03/17/17 04/13/17 Rx Amitriptyline [Elavil] 100 mg PO BEDTIME tablet 03/17/17 04/13/17 Rx Potassium Chloride Cap/Tab [K Dur] 20 meq PO DAILY #30 tablet 03/17/17 04/13/17 Rx Sertraline [Zoloft] 100 mg PO BEDTIME tablet 03/17/17 04/13/17 Rx Aspirin EC Tab 81 mg PO DAILY 04/13/17 04/13/17 History Furosemide Tab [Lasix Tab] 40 mg PO DAILY 04/13/17 04/13/17 History Omeprazole [Prilosec] 20 mg PO DAILY 04/13/17 04/13/17 History dilTIAZem HCl [Diltiazem ER (24 120 mg PO DAILY 04/13/17 04/13/17 History hr)] predniSONE TAB [PredniSONE] 5 mg PO DAILY 04/13/17 04/13/17 History Medical,Surgical,& Family Hx - Medical History Cardio: History of: Hypertension Neurology: No history of: Brain Aneurysm, Cerebral Hemorrhage, Cerebrovascular Accident , Cerebral Palsy, Dementia, Migraine, Multiple Sclerosis, Parkinson's Disease, Peripheral Neuropathy, Seizures, TIA, Vertigo, Neurologocal Cancer HEENT: History of: Eye Problem (cataracts both eyes), Dental Problems (no upper teeth), HEENT Problems No history of: Ear Problem, Glaucoma, Oral Cancer Endocrine: No history of: Adrenal Disease, Diabetes Mellitus (IDDM), Diabetes Mellitus ( NIDDM), Thyroid Disorder, Endocrine Cancer, Endocrine Problems Rheumatology: History of;: Rheumatological Problems No history of;: Fibromyalgia, Gout, Myasthenia Gravis, Rheumatoid Arthritis Respiratory: No history of: Asthma, Bronchitis, COPD, Intubation, Obstructive Sleep Apnea , Pulmonary Embolism, Pulmonary Hypertension, Pneumonia, Lung Cancer, Respiratory Problems Renal: No history of: Renal (Kidney) Cancer, Dialysis, Renal Failure, Renal Problems Genitourinary: No history of: Bladder Problem, Kidney Stones, Recurring Urinary Tract Infections, Genitourinary Cancer, Problems Gastrointestinal: History of: GERD, Ulcerative Colitis, GI Problems (chronic constipation) No history of: Bowel Obstruction, Clostridium Difficile, Crohn's Disease, Diverticulitis/ Diverticulosis, Esophageal Varices, Gastrointestinal Bleed, Hemorrhoids, Hematochezia, Hepatitis, Liver Problems, Pancreatitis, Polyps, Gastrointestinal Cancer Musculoskeletal: History of: Musculoskeletal Problems No history of: Amputation, Back/Neck Problems, Degenerative Disk Disease, Herniated Disk, Osteoporosis, Musculoskeletal Cancer Hematology: History of: Bleeding Problems (whenever she has bowel movements she reports bleeding.) No history of: Anemia, Clotting Problems, Sickle Cell Disease, Hematologic Cancer, Blood Disorders - Surgical History Cardiac Surgeries: Sugical HX of: Cardiac Catheterization Patient Denies: Femoral-Popliteal Bypass Graft, Cardiac Surgery, Carotid Endarterectomy, Internal Defibrillator, Vascular Access Devices Thoracic Surgeries: Surgical HX of;: Kidney (Renal Surgery), Nephrectomy ( partial left nephrectomy (05-16-15)) Patient denies;: Lithotripsy, Organ Transplant, Lobectomy Neurologic Surgeries: Patient denies: Brain Aneurysm, Cerebral Hemorrhage, Neurologic Surgery HEENT Surgeries: Surgical HX of: Eye Surgery (CATARACTS) Patient denies: Carotid Endarterectomy, Thyroid Surgery, Tonsilectomy & Adenoidectomy Abdominal Surgeries: Surgical HX of: Abdominal Surgery (hysterectomy), Cholecystectomy, Colonoscopy, EGD Patient denies: Appendectomy, Gastric Bypass Surgery, Hernia Repair, Splenectomy Reproductive Surgeries: Surgical HX of;: Cystoscopy, Dilation and Curettage, Genitourinary Surgery (bladder removal), Gynecologic Surgery (partial hysterectomy), Hysterectomy (PARTIAL HYST) Patient denies;: Breast Surgery, Section, Tubal Ligation Orthopedic Surgeries: Patient denies;: Implanted Devices, Orthopedic Surgery, Spinal Surgery, Total Hip Replacement, Total Knee Replacement - Family History Family History: Reports;: Family Diabetes (SISTER), Family Heart Disease (MOM), Family Hypertension (BROTHER), Family Psychiatric Problems (SISTER) Denies;: Family Anesthesia Reaction, Family Cancer - Social History Smoking Status: Former smoker Frequency of Alcohol Use: None Type of Drug Use: None Exam Vital Signs: Vital Signs Temperature 98.6 F 04/13/17 14:06 Pulse Rate 97 H 04/13/17 14:06 Respiratory Rate 18 04/13/17 14:18 Blood Pressure 104/84 04/13/17 14:06 O2 Sat by Pulse Oximetry 97 04/13/17 14:06 GENERAL: This is a well-nourished well-developed black female in no apparent distress. VITAL SIGNS: Reviewed HEENT: Head is atraumatic and normocephalic. Pupils are equal round react to light. Extraocular movements are intact. Oropharynx is benign with moist mucous membranes. NECK: Neck is soft and supple without tenderness. There are no masses. There is no lymphadenopathy. LUNGS: Lungs are clear to auscultation. Chest rises symmetrically. There is no chest wall tenderness. CV: Heart is regular rate and rhythm without murmurs rubs or gallops. ABDOMEN: Abdomen is soft, nontender to palpation. There are no abdominal abnormal masses palpated. There is no organomegaly. Bowel sounds are present and active. SKIN: Skin is warm and dry. No rash. EXTREMITIES: Patient has full range of motion without tenderness. There is no pedal edema. NEUROLOGIC: Awake alert and oriented 4. Cranial nerves II through XII are grossly intact. Motor is 5 over 5 in all extremities bilaterally. Results - Labs Lab Results: I have reviewed the patients labs Labs: Laboratory Tests 04/13/17 14:49 Troponin I 0.243 H - EKG EKG results: interpreted by ERMD - Impressions EKG: Normal sinus rhythm with a rate of 94, normal ST-T waves, normal axis. Old inferior AL. - Diagnostic Findings Procedure: Chest x-ray: image reviewed by me (Old median sternotomy) Disposition Clinical Impression: Chest pain, Status post CABG, Coronary artery disease Case discussed with: patient Disposition: Still a Patient Condition: Stable
[2017-04-13] MEDS ORDERED: KETOROLAC 30 MG/1 ML VIAL ONE (14:38)
--- NOTE | 2017-04-13 15:03 | XRay Report ---
2 view chest. Indication: Chest pain. The heart is normal in size. The mediastinal contours are normal. Post median sternotomy. Surgical clips in the upper abdomen. No consolidation, pneumothorax, or pleural effusion. Normal pulmonary vasculature. Calcified granulomas in the lung parenchyma. Degenerative changes at the shoulders. Impression: No acute abnormality. PROCEDURE INTERPRETED AT [facility] DEPARTMENT OF RADIOLOGY Final Report Signed by: Dr. Melanie Nichole
[2017-04-13] MEDS ORDERED: INSULIN REGULAR 100 UNIT/ML SUBCUT ONE (16:27)
[2017-04-13] MEDS ORDERED: ONDANSETRON 4 MG/2 ML VIAL IV PRN (16:27)
--- NOTE | 2017-04-13 16:35 | EKG Report ---
Stationary ECG Study [facility] ER Test Date: 04/13/2017 2:14:56 PM Pat Name: BANG TRINIDAD Department: Room: Gender: F [employer]: : 1950 Requested by: Carlos Crockett Order Number: [id number] Reading MD: PADDY PEOPLES Intervals [place] Rate: 94 P: 40 PA: 129 QRS: 69 QRSD: 106 T: 35 QT: 388 QTc: 439 Interpretive Statements SINUS RHYTHM PROBABLE INFERIOR MYOCARDIAL INFARCTION, PROBABLY OLD Electronically Signed On 04-13-17 18:13:18 CDT by PADDY PEOPLES [email or web address]
--- NOTE | 2017-04-13 16:40 | Hospitalist History & Physical ---
Assessment and Plan (1) History of hypertension Status: Acute Current Visit: No (2) Coronary artery disease Status: Acute Current Visit: No (3) Chest pain Status: Acute Assessment and plan: Our plan for this patient will be admitting her to telemetry. Consult cardiology. Repeat troponins and fasting lipid profile. Continue her other home meds as appropriate. Current Visit: Yes History of Present Illness Chief complaint: Chest pain History of present illness: Ms. Gregorio is a 67 year old female with past medical history significant for coronary artery disease, hypertension and kidney cancer who was in her normal state of health till yesterday. Patient reports that she had some chest discomfort that started yesterday. She describes a sharp like but today it had a burning sensation. Is on the right side of her chest she felt short of breath she felt diaphoresis. There is no nausea component there is actually no exertional component with the chest pain. She does have exertional dyspnea that seems like is getting worse. There is no radiation of the chest pain. And because she was short of breath she went to [facility]. She subsequently transferred to our hospital had a mild bump in her troponins I was consulted to admit her. Home Medications Medication Instructions Recorded Confirmed Type Atorvastatin [Lipitor] 40 mg PO BEDTIME 05/08/15 04/13/17 History Amiodarone Tab [Cordarone Tab] 200 mg PO BID #60 tablet 03/17/17 04/13/17 Rx Amitriptyline [Elavil] 100 mg PO BEDTIME tablet 03/17/17 04/13/17 Rx Potassium Chloride Cap/Tab [K Dur] 20 meq PO DAILY #30 tablet 03/17/17 04/13/17 Rx Sertraline [Zoloft] 100 mg PO BEDTIME tablet 03/17/17 04/13/17 Rx Aspirin EC Tab 81 mg PO DAILY 04/13/17 04/13/17 History Furosemide Tab [Lasix Tab] 40 mg PO DAILY 04/13/17 04/13/17 History Omeprazole [Prilosec] 20 mg PO DAILY 04/13/17 04/13/17 History dilTIAZem HCl [Diltiazem ER (24 120 mg PO DAILY 04/13/17 04/13/17 History hr)] predniSONE TAB [PredniSONE] 5 mg PO DAILY 04/13/17 04/13/17 History Allergies Allergy/AdvReac Type Severity Reaction Status Date / Time acetaminophen [From Tylenol] Allergy Intermediate RASH Verified 05/08/15 11:58 Sulfa (Sulfonamide Allergy Mild HEAD Verified 05/08/15 11:58 Antibiotics) CONGESTION Penicillins AdvReac Intermediate SYNCOPE Verified 05/08/15 11:58 Medical,Surgical,& Family Hx - Medical History Cardio: History of: Hypertension Neurology: No history of: Brain Aneurysm, Cerebral Hemorrhage, Cerebrovascular Accident , Cerebral Palsy, Dementia, Migraine, Multiple Sclerosis, Parkinson's Disease, Peripheral Neuropathy, Seizures, TIA, Vertigo, Neurologocal Cancer HEENT: History of: Eye Problem (cataracts both eyes), Dental Problems (no upper teeth), HEENT Problems No history of: Ear Problem, Glaucoma, Oral Cancer Endocrine: No history of: Adrenal Disease, Diabetes Mellitus (IDDM), Diabetes Mellitus ( NIDDM), Thyroid Disorder, Endocrine Cancer, Endocrine Problems Rheumatology: History of;: Rheumatological Problems No history of;: Fibromyalgia, Gout, Myasthenia Gravis, Rheumatoid Arthritis Respiratory: No history of: Asthma, Bronchitis, COPD, Intubation, Obstructive Sleep Apnea , Pulmonary Embolism, Pulmonary Hypertension, Pneumonia, Lung Cancer, Respiratory Problems Renal: No history of: Renal (Kidney) Cancer, Dialysis, Renal Failure, Renal Problems Genitourinary: No history of: Bladder Problem, Kidney Stones, Recurring Urinary Tract Infections, Genitourinary Cancer, Problems Gastrointestinal: History of: GERD, Ulcerative Colitis, GI Problems (chronic constipation) No history of: Bowel Obstruction, Clostridium Difficile, Crohn's Disease, Diverticulitis/ Diverticulosis, Esophageal Varices, Gastrointestinal Bleed, Hemorrhoids, Hematochezia, Hepatitis, Liver Problems, Pancreatitis, Polyps, Gastrointestinal Cancer Musculoskeletal: History of: Musculoskeletal Problems No history of: Amputation, Back/Neck Problems, Degenerative Disk Disease, Herniated Disk, Osteoporosis, Musculoskeletal Cancer Hematology: History of: Bleeding Problems (whenever she has bowel movements she reports bleeding.) No history of: Anemia, Clotting Problems, Sickle Cell Disease, Hematologic Cancer, Blood Disorders - Surgical History Cardiac Surgeries: Sugical HX of: Cardiac Catheterization Patient Denies: Femoral-Popliteal Bypass Graft, Cardiac Surgery, Carotid Endarterectomy, Internal Defibrillator, Vascular Access Devices Thoracic Surgeries: Surgical HX of;: Kidney (Renal Surgery), Nephrectomy ( partial left nephrectomy (05-16-15)) Patient denies;: Lithotripsy, Organ Transplant, Lobectomy Neurologic Surgeries: Patient denies: Brain Aneurysm, Cerebral Hemorrhage, Neurologic Surgery HEENT Surgeries: Surgical HX of: Eye Surgery (CATARACTS) Patient denies: Carotid Endarterectomy, Thyroid Surgery, Tonsilectomy & Adenoidectomy Abdominal Surgeries: Surgical HX of: Abdominal Surgery (hysterectomy), Cholecystectomy, Colonoscopy, EGD Patient denies: Appendectomy, Gastric Bypass Surgery, Hernia Repair, Splenectomy Reproductive Surgeries: Surgical HX of;: Cystoscopy, Dilation and Curettage, Genitourinary Surgery (bladder removal), Gynecologic Surgery (partial hysterectomy), Hysterectomy (PARTIAL HYST) Patient denies;: Breast Surgery, Section, Tubal Ligation Orthopedic Surgeries: Patient denies;: Implanted Devices, Orthopedic Surgery, Spinal Surgery, Total Hip Replacement, Total Knee Replacement - Family History Family History: Reports;: Family Diabetes (SISTER), Family Heart Disease (MOM), Family Hypertension (BROTHER), Family Psychiatric Problems (SISTER) Denies;: Family Anesthesia Reaction, Family Cancer - Social History Smoking Status: Former smoker Frequency of Alcohol Use: None Type of Drug Use: None 12 point system: reviewed and no additional remarkable complaints except as stated Exam - Constitutional Vitals: Period Temp Pulse Resp BP Sys/Berg Pulse Ox Last 24 Hr 98.6 F-98.6 F 97-97 18-18 104-104/84-84 97 General appearance: normal weight - Head Head exam: Present: normal inspection - Eye Eye exam: Present: EOMI Pupils: Present: ZAIDA - ENT ENT exam: Present: normal exam - Neck Neck exam: Present: normal inspection - Respiratory Respiratory exam: Present: clear to auscultation bilaterally - Cardiovascular Cardiovascular exam: Present: regular rate and rhythm - GI/Abdominal GI/Abdominal exam: Present: normal bowel sounds - Extremities Exam Extremities exam: Present: normal inspection - Back Exam Back exam: Present: normal inspection - Neurological Exam Neurological exam: Present: alert, oriented X3 - Psychiatric Psychiatric exam: Present: normal affect, normal mood - Skin Skin exam: Present: normal color, warm Results - Labs Labs: Labs from [facility] white count 11.23 hemoglobin 14 hematocrit 44.5 platelets 258 sodium 134 potassium 3.9 chloride 96 bicarb 33 calcium 9.2 BUN 22 creatinine 1.1 glucose 124 INR 0.99 troponin 0 0.274 CK-MB 140 BNP 330 - Impressions EKG showed a old inferior SD
[2017-04-13 17:45] LABS: Risk Ratio 3.55; VLDL CHOLESTEROL 20.6 MG/DL
[2017-04-13] MEDS: NITROGLYCERIN 2% OINT 1 INCH/GM PACK TOP SCH ×2 (18:14→23:51)
--- NOTE | 2017-04-13 20:04 | Cardiology Consult Note ---
Assessment and Plan - Time spent with patient Time spent with patient: Greater than 30 minutes (1) Chest pain Status: Acute Assessment and plan: His symptoms his exertional like angina. However, it is reproducible like chest wall pain. Her troponins are white zone Plan/recommendation: Serial cardiac isoenzymes and troponins. If there is no change, this may be a chronic finding If there is no significant rise or decrease in troponins, it could suggest coronary artery disease/ACS Cardiac isoenzymes every 64 Treat chest wall pain-tramadol, Tylenol, gabapentin Continue as per post bypass grafting EKG every morning 3 Would consider adding a low-dose beta-yokasta given she is post TN bypass and also borderline tachycardic I will follow along with. Thank you for allowing me to participate in this patient's care Current Visit: Yes (2) Chest wall pain Status: Acute Current Visit: Yes (3) Chest wall pain following surgery Status: Acute Current Visit: Yes (4) Coronary artery disease Status: Acute Current Visit: No (5) History of depression Status: Acute Current Visit: No (6) History of hypertension Status: Acute Current Visit: No (7) History of partial nephrectomy Status: Acute Current Visit: No (8) Ischemic colitis Status: Acute Current Visit: No (9) Status post nephrectomy Status: Acute Current Visit: No History of Present Illness - Data of Consult Patient: new to practice Consult date: 04/13/17 Requesting Physician: Carlos Crockett - Consult Narrative Reason for consult: Evaluate chest pain, 5-6 weeks post bypass grafting History of present illness: Ms. Gregorio is a 67 year old female PCP: Dr. Gareth Glez [employer] Power Systems Engineer: Dr. Ruiz Ms. Gregorio is a 67-year-old -English woman. She underwent two-vessel bypass grafting in early February by Dr. Green. She was let go home around March 06. She had a vein graft to LAD and a vein graft to her circumflex marginal. He could not use a small, diminutive MARTHA. She did fairly well. However, lately she has noticed some exertional chest discomfort. He comes on with activity. It lessens when she rests or sits up. It is sharp. Is in her right chest and also left lower mid chest area. He can be burning. Is associated with shortness of breath and diaphoresis and some nausea. She came to emergency room. She was seen. Her troponin was white zone. Is about 0.2. She was sent here for evaluation. She is also had some shortness of breath and dyspnea on exertion. Past medical history: History of bypass grafting Diabetes Overweight Decreased visual acuity, history of cataract surgery Does not smoke cigarettes or drink alcohol There is a family history of coronary disease and diabetes Review of systems is negative except for as mentioned in HPI Her labs from there is marked for BNP of 330. Troponin is as mentioned about 0.2. CC: Carlos Crockett MD - Home Medications and Allergies Home Medications: Home Medications Medication Instructions Recorded Confirmed Type Atorvastatin [Lipitor] 40 mg PO BEDTIME 05/08/15 04/13/17 History Amiodarone Tab [Cordarone Tab] 200 mg PO BID #60 tablet 03/17/17 04/13/17 Rx Amitriptyline [Elavil] 100 mg PO BEDTIME tablet 03/17/17 04/13/17 Rx Potassium Chloride Cap/Tab [K Dur] 20 meq PO DAILY #30 tablet 03/17/17 04/13/17 Rx Sertraline [Zoloft] 100 mg PO BEDTIME tablet 03/17/17 04/13/17 Rx Aspirin EC Tab 81 mg PO DAILY 04/13/17 04/13/17 History Furosemide Tab [Lasix Tab] 40 mg PO DAILY 04/13/17 04/13/17 History Omeprazole [Prilosec] 20 mg PO DAILY 04/13/17 04/13/17 History dilTIAZem HCl [Diltiazem ER (24 120 mg PO DAILY 04/13/17 04/13/17 History hr)] predniSONE TAB [PredniSONE] 5 mg PO DAILY 04/13/17 04/13/17 History Allergies/Adverse Reactions: Allergies Allergy/AdvReac Type Severity Reaction Status Date / Time acetaminophen [From Tylenol] Allergy Intermediate RASH Verified 05/08/15 11:58 Sulfa (Sulfonamide Allergy Mild HEAD Verified 05/08/15 11:58 Antibiotics) CONGESTION Penicillins AdvReac Intermediate SYNCOPE Verified 05/08/15 11:58 12 point system: reviewed and no additional remarkable complaints except as stated (A 12 point review of systems is negative except for as mentioned in HPI. ) Medical,Surgical,& Family Hx - Medical History Cardio: History of: CHF, Hypertension, TN Psychological: History of: Anxiety Disorders, Depression Neurology: No history of: Brain Aneurysm, Cerebral Hemorrhage, Cerebrovascular Accident , Cerebral Palsy, Dementia, Migraine, Multiple Sclerosis, Parkinson's Disease, Peripheral Neuropathy, Seizures, TIA, Vertigo, Neurologocal Cancer HEENT: History of: Eye Problem (cataracts both eyes), Dental Problems (no upper teeth), HEENT Problems No history of: Ear Problem, Glaucoma, Oral Cancer Endocrine: History of: Dyslipidemia No history of: Adrenal Disease, Diabetes Mellitus (IDDM), Diabetes Mellitus ( NIDDM), Thyroid Disorder, Endocrine Cancer, Endocrine Problems Rheumatology: History of;: Rheumatological Problems No history of;: Fibromyalgia, Gout, Myasthenia Gravis, Rheumatoid Arthritis Respiratory: No history of: Asthma, Bronchitis, COPD, Intubation, Obstructive Sleep Apnea , Pulmonary Embolism, Pulmonary Hypertension, Pneumonia, Lung Cancer, Respiratory Problems Renal: No history of: Renal (Kidney) Cancer, Dialysis, Renal Failure, Renal Problems Genitourinary: No history of: Bladder Problem, Kidney Stones, Recurring Urinary Tract Infections, Genitourinary Cancer, Problems Gastrointestinal: History of: GERD, Ulcerative Colitis, GI Problems (chronic constipation) No history of: Bowel Obstruction, Clostridium Difficile, Crohn's Disease, Diverticulitis/ Diverticulosis, Esophageal Varices, Gastrointestinal Bleed, Hemorrhoids, Hematochezia, Hepatitis, Liver Problems, Pancreatitis, Polyps, Gastrointestinal Cancer Musculoskeletal: History of: Musculoskeletal Problems No history of: Amputation, Back/Neck Problems, Degenerative Disk Disease, Herniated Disk, Osteoporosis, Musculoskeletal Cancer Hematology: History of: Bleeding Problems (whenever she has bowel movements she reports bleeding.) No history of: Anemia, Clotting Problems, Sickle Cell Disease, Hematologic Cancer, Blood Disorders Other: History of: Cancer (renal) - Surgical History Cardiac Surgeries: Sugical HX of: Cardiac Catheterization, Cardiac Surgery ( cabg x2 february2017) Patient Denies: Femoral-Popliteal Bypass Graft, Carotid Endarterectomy, Internal Defibrillator, Vascular Access Devices Thoracic Surgeries: Surgical HX of;: Kidney (Renal Surgery), Nephrectomy ( partial left nephrectomy (05-16-15)) Patient denies;: Lithotripsy, Organ Transplant, Lobectomy Neurologic Surgeries: Patient denies: Brain Aneurysm, Cerebral Hemorrhage, Neurologic Surgery HEENT Surgeries: Surgical HX of: Eye Surgery (CATARACTS) Patient denies: Carotid Endarterectomy, Thyroid Surgery, Tonsilectomy & Adenoidectomy Abdominal Surgeries: Surgical HX of: Abdominal Surgery (hysterectomy (partial)) , Cholecystectomy, Colonoscopy, EGD Patient denies: Appendectomy, Gastric Bypass Surgery, Hernia Repair, Splenectomy Reproductive Surgeries: Surgical HX of;: Cystoscopy, Dilation and Curettage, Genitourinary Surgery (bladder removal?), Gynecologic Surgery (partial hysterectomy), Hysterectomy (PARTIAL HYST) Patient denies;: Breast Surgery, Section, Tubal Ligation Orthopedic Surgeries: Patient denies;: Implanted Devices, Orthopedic Surgery, Spinal Surgery, Total Hip Replacement, Total Knee Replacement - Family History Family History: Reports;: Family Diabetes (SISTER), Family Heart Disease (MOM), Family Hypertension (BROTHER), Family Psychiatric Problems (SISTER) Denies;: Family Anesthesia Reaction, Family Cancer - Social History Smoking Status: Former smoker Frequency of Alcohol Use: None Type of Drug Use: None Functional capacity: independent ambulation Physical Examination Vital Signs Temp Pulse Resp BP Pulse Ox 98.6 F 97 H 18 104/84 97 04/13/17 14:06 04/13/17 14:06 04/13/17 14:06 04/13/17 14:06 04/13/17 14:06 Exam: 2 HEENT: Pupils equal, reactive to light and accommodation Neck: NoJVD or bruit Lungs clear to auscultation Heart: Regular rhythm rate with normal S1 and S2. Apical S4 Abdomen: No hepatosplenomegaly Spine/extremities: No clubbing, cyanosis, or edema Neuro: Nonfocal Psych: No depression or anxiety There is some chest wall tenderness in the right chest and also left lower chest. These reproduce her pain for which she was admitted, exactly. Result/EKG - Labs Lab Results: I have reviewed the past 24 hour labs Labs: Laboratory Results - last 24 hr 04/13/17 04/13/17 04/13/17 14:40 14:49 18:09 Troponin I 0.243 H 0.226 H Triglycerides 103 Cholesterol 195 LDL Cholesterol 120.0 VLDL Cholesterol 20.6 HDL Cholesterol 55 Heart Disease Risk Ratio 3.55 Labs from [facility] were unremarkable except for as mentioned. - Diagnostic Findings Procedure: Chest x-ray: report reviewed by me - EKG EKG results: interpreted by me
[2017-04-13] MEDS: SERTRALINE 100 MG TABLET PO SCH (20:50)
[2017-04-13] MEDS: ACETAMINOPHEN 325 MG TABLET PO SCH (20:50)
[2017-04-13] MEDS: ATORVASTATIN 40 MG TABLET PO SCH (20:50)
[2017-04-13] MEDS: AMIODARONE 200 MG TABLET PO SCH (20:50)
[2017-04-13] MEDS: BISOPROLOL 5 MG TABLET PO SCH (20:51)
[2017-04-13] MEDS: traMADol 50 MG TABLET PO SCH (20:51)
[2017-04-13] MEDS: GABAPENTIN 100 MG CAPSULE PO SCH (20:51)
[2017-04-13] MEDS: AMITRIPTYLINE 100 MG TABLET PO SCH (20:58)
[2017-04-13] MEDS: ENOXAPARIN 80 MG/0.8 ML SYRINGE SUBCUT SCH (23:50)
[2017-04-13 23:52] LABS: Troponin I Only 0.208 NG/ML (0.00-0.045)
[2017-04-14 05:16] LABS: Basophils # 0.1 10*3/uL (0.0-0.2); Basophils % 0.5 % (0.0-0.8); Eosinophils # 0.3 10*3/uL (0.0-0.87); Eosinophils % 2.6 % (0.00-10.9); Hematocrit 41.6 VOL% (35.7-47.0); Hemoglobin 13.4 GM/DL (12.0-16.0); Immature Granulocytes % 1.1 %; Immature Granulocytes Absolute 0.12 #; Lymphocytes # 3.8 10*3/uL (1.4-4.0); Lymphocytes % 36.2 % (21.3-54.2); Mean Corpuscular HGB Conc 32.2 GM/DL (32-36); Mean Corpuscular Hemoglobin 28 PG (27-34); Mean Platelet Volume 9.9 FL (9.6-12.0); Monocytes # 0.9 10*3/uL (0.11-0.8); Monocytes % 8.8 % (1.7-12.7); Neutrophils # 5.4 10*3/uL (1.4-7.4); Neutrophils % 50.8 % (38.7-73.9); Platelet Count 258 T/CUMM (130-400); Red Blood Count 4.84 MC/CUMM (3.8-5.5); Red Cell Distribution Width 14.6 % (9.3-17.3); White Blood Count 10.6 T/CUMM (4-12)
[2017-04-14 05:46] LABS: Calcium 9.7 MG/DL (8.5-10.1); Magnesium 2.3 MG/DL (1.8-2.4); Osmolality,Calculated 279.8 MOS/KG (273-304); Potassium 3.9 MMOL/L (3.5-5.1)
[2017-04-14 05:47] LABS: Troponin I Only 0.204 NG/ML (0.00-0.045)
[2017-04-14] MEDS: NITROGLYCERIN 2% OINT 1 INCH/GM PACK TOP SCH ×2 (06:17→12:46)
--- NOTE | 2017-04-14 06:33 | EKG Report ---
Stationary ECG Study [facility] Test Date: 04/14/2017 12:00:53 AM Pat Name: BANG TRINIDAD Department: Room: 272 Gender: F Trust Administrator: : 1950 Requested by: Carlos Crockett Order Number: [id number] Reading MD: PADDY PEOPLES Intervals [place] Rate: 84 P: 46 HI: 149 QRS: 11 QRSD: 111 T: 41 QT: 424 QTc: 465 Interpretive Statements SINUS RHYTHM CANNOT RULE OUT ANTERIOR INFARCT, PROBABLY OLD INFERIOR INFARCT, PROBABLY OLD Electronically Signed On 04-14-17 09:35:02 CDT by PADYD PEOPLES [email or web address]
--- NOTE | 2017-04-14 07:16 | EKG Report ---
Stationary ECG Study [facility] Test Date: 04/14/2017 7:15:18 AM Pat Name: BANG TRINIDAD Department: Room: 272 Gender: F Grain Processor: DORIS : 1950 Requested by: Jesus Baltazar Order Number: [id number] Reading MD: JESUS BALTAZAR Intervals [place] Rate: 75 P: 52 GA: 152 QRS: 45 QRSD: 110 T: 50 QT: 448 QTc: 477 Interpretive Statements SINUS RHYTHM PROBABLE INFERIOR MYOCARDIAL INFARCTION, PROBABLY OLD Electronically Signed On 04-14-17 09:30:49 CDT by JESUS BALTAZAR [email or web address]
[2017-04-14] MEDS: BISOPROLOL 5 MG TABLET PO SCH ×2 (08:52→20:47)
[2017-04-14] MEDS: FUROSEMIDE 40 MG TABLET PO SCH (08:53)
[2017-04-14] MEDS: POTASSIUM CHLORIDE 20 MEQ TABLET PO SCH (08:53)
[2017-04-14] MEDS: DILTIAZEM CD 120 MG CAPSULE PO SCH (08:53)
[2017-04-14] MEDS: PANTOPRAZOLE 40 MG TABLET PO SCH (08:54)
[2017-04-14] MEDS: ASPIRIN EC 325 MG TABLET PO SCH (08:54)
[2017-04-14] MEDS: GABAPENTIN 100 MG CAPSULE PO SCH ×3 (08:54→20:46)
[2017-04-14] MEDS: AMIODARONE 200 MG TABLET PO SCH ×2 (08:54→20:46)
[2017-04-14] MEDS: predniSONE 5 MG TABLET PO SCH (08:54)
[2017-04-14] MEDS: traMADol 50 MG TABLET PO SCH ×2 (08:54→20:47)
[2017-04-14] MEDS: ACETAMINOPHEN 325 MG TABLET PO SCH (09:15)
[2017-04-14] MEDS: ENOXAPARIN 80 MG/0.8 ML SYRINGE SUBCUT SCH ×2 (11:00→23:55)
[2017-04-14] MEDS ORDERED: SODIUM CHLORIDE 0.9% 1,000 ML IV SCH (13:30)
--- NOTE | 2017-04-14 13:33 | Cardiology Progress Note ---
I, Nano Brewer, DIMITRIOS, am scribing for, and in the presence of, Jesus Baltazar MD 13:26. Assessment and Plan - Time spent with patient Time spent with patient: Greater than 30 minutes (1) Dyslipidemia Status: Chronic Assessment and plan: Chest wall pain is better Talking remarkably about her significant dyspnea on exertion Her chest x-ray is relatively clear. BNP is only 330, borderline. Her d-dimer is 2.2. We will get a CTA lung to rule out PE. She has multiple risk factors for having DVT/PE. sHe has had pneumonia in the past, but one cannot see it on chest x-ray If this is negative, maybe it could be some unusual pulmonary cause or just being overweight and out of shape/deconditioning. Would consider pulmonary workup if CTA is negative. Hydrate well with normal saline before CT Current Visit: Yes (2) Chest pain Status: Acute Assessment and plan: SEE PLAN OF CARE LISTED BELOW Current Visit: Yes (3) Chest wall pain following surgery Status: Chronic Assessment and plan: SEE PLAN OF CARE LISTED BELOW Current Visit: Yes (4) Coronary artery disease Status: Chronic Assessment and plan: SEE PLAN OF CARE LISTED BELOW Current Visit: Yes (5) Diabetes Status: Chronic Assessment and plan: SEE PLAN OF CARE LISTED BELOW Current Visit: Yes (6) Dyspnea on exertion Status: Chronic Assessment and plan: SEE PLAN OF CARE LISTED BELOW Current Visit: Yes (7) Hypertension Status: Chronic Assessment and plan: SEE PLAN OF CARE LISTED BELOW Current Visit: Yes Cardiology - PN: Subj Interval history: Public Health Microbiologist: Dr. Ruiz PCP: Dr. Gareth Glez Ms. Gregorio is a 67-year-old -[place] woman. She underwent two-vessel bypass grafting in early February by Dr. Green. She was let go home around March 06. She had a vein graft to LAD and a vein graft to her circumflex marginal. He could not use a small, diminutive MARTHA. She did fairly well. However, lately she has noticed some exertional chest discomfort. He comes on with activity. It lessens when she rests or sits up. It is sharp. Is in her right chest and also left lower mid chest area. He can be burning. Is associated with shortness of breath and diaphoresis and some nausea. She came to emergency room. She was seen. Her troponin was white zone. Is about 0.2. She was sent here for evaluation. She is also had some shortness of breath and dyspnea on exertion. APRIL 14, 2017: The patient is sitting up in a chair this morning and denies complaints of chest pain overnight. She admits shortness of breath on exertion , and states she has dyspnea on exertion regularly since her surgery. She does have some reproducible right sided chest wall pain on exam. She has tenderness over her midsternal surgical scar, which is well healing, this is to be expected. Cardiac biomarkers have remained flat. EKG shows sinus rhythm with likely old inferior TN. Heart rate remains in the 80s, with good blood pressure control. Chest x-ray shows no acute abnormality. BNP is noted at 330. Will add a d-dimer, and continue to follow EKGs and cardiac biomarkers. The patient is free of chest pain at this time. Creatinine is noted at 1.2, and it had returned to normal at her previous hospitalization. ASSESSMENT/PLAN: 1. Chest pain -treated cardiac biomarkers, troponins flat thus far. Serial EKGs. Continue Nitropaste. 2. Chest wall pain following surgery -midsternal chest pain approximately 6 weeks post CABG, incision well healing, unremarkable. 3. CAD -continue aspirin and Lovenox. No chest pain at present. 4. Hypertension -controlled at present. Not initiating LANDON inhibitor or ARB at this time as her blood pressure will not allow. Could consider introducing low-dose as BP allows. 5. Dyspnea on exertion -patient reports this has been her baseline since surgery. Chest x-ray no acute abnormality. Will check d-dimer and could consider VQ lung scan versus CT of chest. 6. Diabetes -continue Accu-Cheks and sliding scale insulin. Continue home medication. 7. Dyslipidemia -continue current plan of care. Exam (Progress Note) - Constitutional Vitals: Period Temp Pulse Resp BP Sys/Berg Pulse Ox Last 24 Hr 98.1 F-98.6 F 79-100 16-20 97-126/57-84 97-100 Exam: General: Appears well with no apparent distress. Pleasant and cooperative. Appears comfortable. HEENT: PERRL, normocephalic, atraumatic. Mucous membranes moist. No jaundice noted. Conjunctiva moist and clear, sclerae anicteric. Neck: No JVD/HJR, no thyromegaly or lymphadenopathy noted. Cardiac: Regular rate and rhythm. No murmur rub or gallop. PMI is nondisplaced. Lungs: Clear to auscultation without accessory muscle use to assist the respiratory pattern. Oxygen in use via nasal cannula. Abdomen: Soft, bowel sounds normoactive. Nontender and nondistended. No abdominal bruit or thrill noted. No masses noted. Musculoskeletal: No fluid collection. Decreased range of motion is noted. Extremities: No clubbing, cyanosis noted. No edema noted. Upper extremity pulses 2+. Lower extremity pulses 2+. Capillary refill less than 3 seconds. Skin: No unusual lesions or rashes. No skin breakdown appreciated. Neuro: Awake, alert and oriented 3. Moves all extremities well without hemiparesis or paralysis. No essential tremor is appreciated. Result/EKG - Labs CBC & BMP: 04/14/17 04:14 04/14/17 04:14 Lab Results: I have reviewed the past 24 hour labs Labs: Laboratory Results - last 24 hr 04/13/17 04/13/17 04/13/17 14:40 14:49 18:09 WBC RBC Hgb Hct MCV MCH MCHC RDW Plt Count MPV Neut % (Auto) Lymph % (Auto) [place] % (Auto) Eos % (Auto) Baso % (Auto) Neut # (Auto) Lymph # (Auto) [place] # (Auto) Eos # (Auto) Baso # (Auto) Immature Gran % Nucleated RBC % Immature Gran # Nucleated RBCs # Immature Plt Fraction Sodium Potassium Chloride Carbon Dioxide Anion Gap BUN Creatinine GFR Calculation BUN/Creatinine Ratio Glucose POC Glucose Calculated Osmolality Calcium Magnesium Total Creatine Kinase CK-MB (CK-2) Troponin I 0.243 H 0.226 H Triglycerides 103 Cholesterol 195 LDL Cholesterol 120.0 VLDL Cholesterol 20.6 HDL Cholesterol 55 Heart Disease Risk Ratio 3.55 04/13/17 04/13/17 04/14/17 21:51 23:06 04:14 WBC RBC Hgb Hct MCV MCH MCHC RDW Plt Count MPV Neut % (Auto) Lymph % (Auto) [place] % (Auto) Eos % (Auto) Baso % (Auto) Neut # (Auto) Lymph # (Auto) [place] # (Auto) Eos # (Auto) Baso # (Auto) Immature Gran % Nucleated RBC % Immature Gran # Nucleated RBCs # Immature Plt Fraction Sodium Potassium Chloride Carbon Dioxide Anion Gap BUN Creatinine GFR Calculation BUN/Creatinine Ratio Glucose POC Glucose 76 Calculated Osmolality Calcium Magnesium Total Creatine Kinase 35 36 CK-MB (CK-2) < 1.0 < 1.0 Troponin I 0.208 H 0.204 H Triglycerides Cholesterol LDL Cholesterol VLDL Cholesterol HDL Cholesterol Heart Disease Risk Ratio 04/14/17 04/14/17 04/14/17 04:14 04:14 07:28 WBC 10.6 RBC 4.84 Hgb 13.4 Hct 41.6 MCV 86.0 L MCH 28 MCHC 32.2 RDW 14.6 Plt Count 258 MPV 9.9 Neut % (Auto) 50.8 Lymph % (Auto) 36.2 [place] % (Auto) 8.8 Eos % (Auto) 2.6 Baso % (Auto) 0.5 Neut # (Auto) 5.4 Lymph # (Auto) 3.8 [place] # (Auto) 0.9 H Eos # (Auto) 0.3 Baso # (Auto) 0.1 Immature Gran % 1.1 Nucleated RBC % 0.0 Immature Gran # 0.12 Nucleated RBCs # 0.00 Immature Plt Fraction 0.0 Sodium 137 Potassium 3.9 Chloride 100 Carbon Dioxide 28 Anion Gap 12.9 BUN 29 H Creatinine 1.20 H GFR Calculation 56 BUN/Creatinine Ratio 24.00 H Glucose 108 H POC Glucose 139 H Calculated Osmolality 279.8 Calcium 9.7 Magnesium 2.3 Total Creatine Kinase CK-MB (CK-2) Troponin I Triglycerides Cholesterol LDL Cholesterol VLDL Cholesterol HDL Cholesterol Heart Disease Risk Ratio - Diagnostic Findings Procedure: Chest x-ray: report reviewed by me - EKG EKG results: interpreted by me, sinus rhythm I, Jesus Baltazar MD, personally performed the services described in this documentation, ascribed by Nano Brewer NP in my presence, and it is both accurate and complete 326 .
--- NOTE | 2017-04-14 13:55 | CT Report ---
Exam: CT chest with contrast, PE study Date: 04/14/2017 Comparison: Chest x-ray 04/13/2017 Reason: Shortness of breath, recent CABG, positive d-dimer Technique: Axial images of the chest were obtained after administration of 80 cc of IV Omnipaque 350 intravenous contrast. Coronal reformatted images were also acquired. The study was performed per pulmonary embolism protocol. Total DLP: 380.10. Findings: There is no evidence of pulmonary embolism through the segmental pulmonary arteries.The heart is borderline in size with coronary artery calcifications in recent median sternotomy. Limited contrast in the aorta with no evidence of definite dissection. Calcified nodes are identified. Degenerative changes are noted. Calcified granulomata with minimal groundglass opacities. No pleural effusion or pneumothorax. Minimal centrilobular emphysema and atelectasis. Impression: No evidence of pulmonary embolism. Recent median sternotomy with coronary artery calcifications. Minimal centrilobular emphysema and atelectasis. Evidence of old healed granulomatous disease with minimal diffuse groundglass opacities which may be related to very minimal edema, fibrosis, etc. This CT exam was performed using one or more the following dose reduction techniques: Automated exposure control, adjustment of the MA and/or KV according to patient size, or use of iterative reconstruction technique. PROCEDURE INTERPRETED AT [facility] DEPARTMENT OF RADIOLOGY Final Report Signed by: Dr. Noelle Scott
--- NOTE | 2017-04-14 17:27 | Hospitalist Progress Note ---
Assessment and Plan - Time spent with patient Time spent with patient: Greater than 30 minutes (1) Chest pain Status: Acute Assessment and plan: 04/14/2017: As mentioned patient is a 67-year-old black female status post acute NH and 2 vessel CABG last month. Her current chest pain complaints do not represent acute coronary syndrome. Consulting specialist field engineer recommends monitoring for noncardiac causes of chest pain. Patient's d-dimer measures 2.2; reference range normal less than 0.53. Patient's creatinine measures 1.2 GFR 56. I recommend IV saline hydration then chest CTA to rule out acute pulmonary emboli. My clinical suspicion for this diagnosis is fairly low therefore no empiric treatment dose Lovenox ordered unless chest CTA confirms acute PE. Current Visit: Yes (2) Type 2 diabetes mellitus Status: Acute Assessment and plan: 04/14/2017: Check hemoglobin A1c with TSH in a.m. Current Visit: Yes (3) Dyslipidemia Status: Chronic Assessment and plan: 04/14/2017: Fasting lipid panel yesterday total cholesterol 195, LDL 120, HDL 55, triglycerides 103. Patient takes Lipitor 40 mg p.o. q. evening. She is a candidate for intensive lipid therapy with target LDL less than 70. Consider increase Lipitor dose if LDL is not decreasing on repeat lipid panel in the next 2-3 months. Current Visit: Yes (4) Essential hypertension Status: Chronic Assessment and plan: 04/14/2017: Patient is receiving bisoprolol, diltiazem, and Lasix therapy. Her blood pressure and pulse rate are well-controlled. Consider the addition of low-dose bossman inhibitor therapy. Defer this option to consulting cardiology team. Current Visit: Yes Hospitalist: Subjective Interval history: 04/14/2017: Patient is a 67-year-old black female admitted for evaluation of chest pain. Patient survived an acute myocardial infarction then completed 2 vessel CABG last month. Consulting specialist field engineer recommends evaluation for noncardiac causes of chest pain. Patient is hemodynamically stable. Troponin I level is fairly flat at 0.208 and 0.204. Exam - Constitutional Vitals: Period Temp Pulse Resp BP Sys/Berg Pulse Ox Last 24 Hr 97.6 F-98.4 F 69-100 16-20 97-126/57-76 97-100 General appearance: normal weight - Head Head exam: Present: normal inspection - ENT ENT exam: Present: normal exam - Neck Neck exam: Absent: meningismus - Respiratory Respiratory exam: Present: clear to auscultation bilaterally. Absent: rales, wheezes - Cardiovascular Cardiovascular exam: Present: regular rate and rhythm - GI/Abdominal GI/Abdominal exam: Present: normal bowel sounds, soft. Absent: distended, tenderness, rebound - Extremities Exam Extremities exam: Absent: calf tenderness, edema - Neurological Exam Neurological exam: Present: alert, oriented X3 - Psychiatric Psychiatric exam: Present: normal affect, normal mood - Skin Skin exam: Present: normal color, warm. Absent: rash Results - Labs CBC & BMP: 04/14/17 04:14 04/14/17 04:14
[2017-04-14] MEDS: AMITRIPTYLINE 100 MG TABLET PO SCH (20:45)
[2017-04-14] MEDS: SERTRALINE 100 MG TABLET PO SCH (20:46)
[2017-04-14] MEDS: ATORVASTATIN 40 MG TABLET PO SCH (20:46)
[2017-04-15 05:07] LABS: Basophils % 0.3 % (0.0-0.8); Eosinophils # 0.3 10*3/uL (0.0-0.87); Hematocrit 39.4 VOL% (35.7-47.0); Hemoglobin 12.5 GM/DL (12.0-16.0); Immature Granulocytes % 0.9 %; Immature Granulocytes Absolute 0.09 #; Lymphocytes # 3.2 10*3/uL (1.4-4.0); Lymphocytes % 32.3 % (21.3-54.2); Mean Corpuscular HGB Conc 31.7 GM/DL (32-36); Mean Corpuscular Hemoglobin 28 PG (27-34); Mean Corpuscular Volume 87.9 FL (87-102); Mean Platelet Volume 9.6 FL (9.6-12.0); Monocytes # 0.8 10*3/uL (0.11-0.8); Monocytes % 7.9 % (1.7-12.7); Neutrophils # 5.5 10*3/uL (1.4-7.4); Neutrophils % 55.6 % (38.7-73.9); Platelet Count 237 T/CUMM (130-400); Red Blood Count 4.48 MC/CUMM (3.8-5.5); Red Cell Distribution Width 14.6 % (9.3-17.3); White Blood Count 9.9 T/CUMM (4-12)
[2017-04-15 05:49] LABS: Free T4 (Free Thyroxine) 1.1 NG/DL (0.76-1.46); Thyroid Stimulating Hormone 3.06 uIU/ml (0.358-3.74)
[2017-04-15 06:03] LABS: Alanine Aminotransferase 23 U/L (13-56); Albumin 2.4 G/DL (3.4-5.0); Alkaline Phosphatase 184 U/L (45-117); Aspartate Amino Transferase 26 U/L (0-37); Bilirubin,Total < 0.39 MG/DL (0.2-1.0); Blood Urea Nitrogen 27 MG/DL (7-18); Calcium 8.8 MG/DL (8.5-10.1); Glucose 100 MG/DL (74-106); Osmolality,Calculated 283.4 MOS/KG (273-304); Potassium 4.4 MMOL/L (3.5-5.1); Sodium 140 MMOL/L (136-145); Total Protein 6.3 G/DL (6.4-8.3)
--- NOTE | 2017-04-15 07:35 | EKG Report ---
Stationary ECG Study [facility] Test Date: 04/15/2017 7:36:10 AM Pat Name: BANG TRINIDAD Department: Room: 272 Gender: F Quality Control Head: FEDE : 1950 Requested by: Jesus Baltazar Order Number: [id number] Reading MD: JESUS BALTAZAR Intervals [place] Rate: 68 P: 51 MS: 146 QRS: 102 QRSD: 101 T: 31 QT: 439 QTc: 456 Interpretive Statements SINUS RHYTHM MARKED RIGHT AXIS DEVIATION POSSIBLE INFERIOR MYOCARDIAL INFARCTION, PROBABLY OLD Electronically Signed On 04-15-17 13:07:25 CDT by JESUS BALTAZAR [email or web address]
[2017-04-15] MEDS: DILTIAZEM CD 120 MG CAPSULE PO SCH (09:15)
[2017-04-15] MEDS: AMIODARONE 200 MG TABLET PO SCH ×2 (09:16→20:37)
[2017-04-15] MEDS: BISOPROLOL 5 MG TABLET PO SCH ×2 (09:16→20:36)
[2017-04-15] MEDS: traMADol 50 MG TABLET PO SCH ×2 (09:16→20:37)
[2017-04-15] MEDS: ASPIRIN EC 325 MG TABLET PO SCH (09:16)
[2017-04-15] MEDS: predniSONE 5 MG TABLET PO SCH (09:16)
[2017-04-15] MEDS: FUROSEMIDE 40 MG TABLET PO SCH (09:16)
[2017-04-15] MEDS: PANTOPRAZOLE 40 MG TABLET PO SCH ×2 (09:16→20:37)
[2017-04-15] MEDS: GABAPENTIN 100 MG CAPSULE PO SCH ×3 (09:16→20:37)
[2017-04-15] MEDS: POTASSIUM CHLORIDE 20 MEQ TABLET PO SCH (09:16)
[2017-04-15] MEDS: SODIUM CHLORIDE 0.9% 1,000 ML IV SCH (10:28)
[2017-04-15] MEDS: ENOXAPARIN 80 MG/0.8 ML SYRINGE SUBCUT SCH (11:11)
--- NOTE | 2017-04-15 16:50 | Hospitalist Progress Note ---
Assessment and Plan - Time spent with patient Time spent with patient: Greater than 30 minutes (1) Chest pain Status: Acute Assessment and plan: 04/14/2017: As mentioned patient is a 67-year-old black female status post acute MN and 2 vessel CABG last month. Her current chest pain complaints do not represent acute coronary syndrome. Consulting lining strap closer recommends monitoring for noncardiac causes of chest pain. Patient's d-dimer measures 2.2; reference range normal less than 0.53. Patient's creatinine measures 1.2 GFR 56. I recommend IV saline hydration then chest CTA to rule out acute pulmonary emboli. My clinical suspicion for this diagnosis is fairly low therefore no empiric treatment dose Lovenox ordered unless chest CTA confirms acute PE. 04/15/2017: No acute pulmonary emboli on chest CTA study yesterday. Patient is to continue normal saline hydration to reduce the risk of contrast associated nephropathy. No aortic dissection on chest CTA exam. Current Visit: Yes (2) Type 2 diabetes mellitus Status: Chronic Assessment and plan: 04/14/2017: Check hemoglobin A1c with TSH in a.m. 04/15/2017: Hemoglobin A1c 6.3%. TSH 3.06 and free T4 1.1 both measure within normal range. Current Visit: Yes (3) Dyslipidemia Status: Chronic Assessment and plan: 04/14/2017: Fasting lipid panel yesterday total cholesterol 195, LDL 120, HDL 55, triglycerides 103. Patient takes Lipitor 40 mg p.o. q. evening. She is a candidate for intensive lipid therapy with target LDL less than 70. Consider increase Lipitor dose if LDL is not decreasing on repeat lipid panel in the next 2-3 months. Current Visit: Yes (4) Essential hypertension Status: Chronic Assessment and plan: 04/14/2017: Patient is receiving bisoprolol, diltiazem, and Lasix therapy. Her blood pressure and pulse rate are well-controlled. Consider the addition of low-dose bossman inhibitor therapy. Defer this option to consulting cardiology team. 04/15/2017: Blood pressure and pulse rate are well-controlled. Continue amiodarone, Zebeta , Prinivil, and diltiazem. Current Visit: Yes Hospitalist: Subjective Interval history: 04/15/2017: Patient denies any chest pain today. She feels well and offers no specific or acute complaints. Exam - Constitutional Vitals: Period Temp Pulse Resp BP Sys/Berg Pulse Ox Last 24 Hr 97.1 F-99.8 F 66-77 16-20 100-115/58-71 94-100 General appearance: normal weight - Head Head exam: Present: normal inspection - Eye Eye exam: Present: EOMI - ENT ENT exam: Present: normal exam - Neck Neck exam: Absent: meningismus, tenderness - Respiratory Respiratory exam: Present: clear to auscultation bilaterally. Absent: rales, stridor, wheezes - Cardiovascular Cardiovascular exam: Present: regular rate and rhythm - GI/Abdominal GI/Abdominal exam: Present: normal bowel sounds, distended, soft. Absent: rebound - Extremities Exam Extremities exam: Present: normal inspection. Absent: calf tenderness, edema - Neurological Exam Neurological exam: Present: alert, oriented X3 - Psychiatric Psychiatric exam: Present: normal affect - Skin Skin exam: Present: normal color, warm, other (Patient is wearing kneelength JOSE ANGEL compression stockings on both lower legs). Absent: rash Results - Labs CBC & BMP: 04/15/17 04:35 04/15/17 04:35
--- NOTE | 2017-04-15 17:57 | XRay Report ---
XR chest 2V Date: 04/15/2017 5:18 PM History: Shortness of breath Comparison: 04/13/2017 Technique: PA and lateral chest Findings: The heart is normal in size with prior median sternotomy. Coronary artery calcifications/stents. The lungs are overexpanded with chronic scarring. Stable mediastinum and osseous structures. Prior cholecystectomy with additional postoperative findings in the left upper quadrant. Impression: No acute cardiopulmonary pathology identified. COPD with chronic scarring patient with prior median sternotomy. PROCEDURE INTERPRETED AT [facility] DEPARTMENT OF RADIOLOGY Final Report Signed by: Dr. Noelle Scott
[2017-04-15] MEDS ORDERED: ALBUTEROL/IPRATROPIUM 3 ML NEB RESP TX PRN (18:10)
--- NOTE | 2017-04-15 18:27 | Pulmonology Consult Note ---
History of Present Illness Chief complaint: GERD. WALSH. Wheeze. Costochondritis. History of present illness: Ms. Gregorio is a 67 year old black female been asked see in pulmonary consultation for evaluation and treatment. This patient was admitted to the hospital with chest pain which I think is costochondritis. She did have coronary artery bypass grafts to 2 vessels approximately a month ago. She has begun to hear herself wheeze. She has mild solid dysphasia which she says is new. She has long-standing gastroesophageal reflux which wakes her up at night with gastric contents in her throat and this causes her to cough and she severely short of breath when this happens. Her chest exam she has a slight laryngeal wheeze she has a mild tracheal and large airway wheeze with slight associated congestion or expiration is prolonged. Patient's had a recent sternal splitting procedure. Coronary artery bypass grafts. She is tender in the costochondral junctions bilaterally and this is most prominent second through sixth costochondral junctions. Pressure here reproduces her pain. The remainder of the review of systems is negative. Allergies. See below Home medicines. Amiodarone. Elavil. Aspirin. Lipitor. Set beta 2.5 mg twice daily. Cardizem 120 mg daily Lovenox. Lasix 40 daily. Neurontin 900 mg 3 times daily lisinopril 2.5 daily Zofran if needed Protonix 40 mg daily K Dur 20 mEq daily prednisone 5 daily for rheumatoid arthritis Zoloft 100 mg at bedtime tramadol. Past history. Double coronary artery bypass grafts spring 2016. Rheumatoid arthritis. Hyperlipidemia. History of depression. Family history. Her sister has diabetes. Her mother had heart disease. Her brother had high blood pressure. Her sister has psychiatric problems. Social history. Patient smoked less than a pack of cigarettes per day and quit smoking in 1984. 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 CT of the chest done 04/13/2017. No pulmonary emboli. No acute findings. Chest x-ray. 04/15/2017. My interpretation. Normal. No heart failure. No infiltrates. No masses. White count is 9900 with a normal differential. H&H 12.5/39.4. Platelets of 237,000. Electrolytes normal. Creatinine 0.902 BUN of 27. Alkaline [place] is mildly elevated 184 transaminases total bilirubin are normal. Troponins are 0.208 and if gradually decreased to 0.181. Total protein and albumin are low at 6.3 and 2.4 respectively. Globulin is elevated at 3.9 is probably related to limb rheumatoid arthritis. Thyroid function tests are normal. Cholesterol is 195. HDL is 55 and LDL is 120. Triglycerides of 103 Physical exam. General. Sitting on the side of the bed talking. No distress. Psychiatric. Oriented 3. Fairly good historian. Face. Symmetrical. No edema of the lips or tongue. Neck. No meningismus. No masses. Thyroid was not palpated. Lymphatics. No submandibular cervical supraclavicular or epitrochlear adenopathy. Chest. Costochondritis on the right and the left most prominent and junctions 2 through 6 bilaterally. Slight laryngeal wheeze. Mild tracheal and large airway wheeze with mild prolongation of expiration. No high-pitched peripheral wheezes Heart. No gallop Abdomen. Nontender. Positive bowel sounds. No organs palpated. Extremities. Trace of edema in the right ankle. Venous harvesting on the right. Skin. Face and hands show no cancerous infectious lesions. No other areas were examined. Neurologic. Cranial nerves are intact long track motor functions intact. Remainder the physical exam is noncontributory. Impression. 1. Arteriosclerotic heart disease. Coronary artery bypass grafts 2 within the past approximately 1 month. Elevated troponins of undetermined significance. 2. Costochondritis with chest pain. 3. Mild solid dysphasia. Gastroesophageal reflux disease with gastric contents into the throat. Most likely microaspiration. #4. Mild laryngeal tracheal and large airway wheeze. Most likely secondary to microaspiration. Watch for LANDON inhibitor contribution. 5. Distant past history of tobacco abuse. Stop smoking 1984 6. Hyperlipidemia 7. Rheumatoid arthritis on low-dose steroids 8. See past history Plan. 1. Inhalation therapy with DuoNeb's 4 times daily and as needed 2. Singulair 10 mg daily 3. Doppler venograms of the lower extremities. 4. Pulmonary function test. Look for obstruction. This will also act as a baseline pulmonary function study while the patient is on amiodarone 5. Flector patch. One half on each area of costochondritis. Apply every 12 hours. 6. Increase Protonix 40 mg twice daily. 7. If solid dysphasia does not resolve with increase proton pump inhibitor, consider E scope. She says she has had these symptoms only for a few weeks. 8. Gastroesophageal reflux precautions 9. Sputum for Gram stain culture and sensitivity 10. See order Home Medications Medication Instructions Recorded Confirmed Type Atorvastatin [Lipitor] 40 mg PO BEDTIME 05/08/15 04/13/17 History Amiodarone Tab [Cordarone Tab] 200 mg PO BID #60 tablet 03/17/17 04/13/17 Rx Amitriptyline [Elavil] 100 mg PO BEDTIME tablet 03/17/17 04/13/17 Rx Potassium Chloride Cap/Tab [K Dur] 20 meq PO DAILY #30 tablet 03/17/17 04/13/17 Rx Sertraline [Zoloft] 100 mg PO BEDTIME tablet 03/17/17 04/13/17 Rx Aspirin EC Tab 81 mg PO DAILY 04/13/17 04/13/17 History Furosemide Tab [Lasix Tab] 40 mg PO DAILY 04/13/17 04/13/17 History Omeprazole [Prilosec] 20 mg PO DAILY 04/13/17 04/13/17 History dilTIAZem HCl [Diltiazem ER (24 120 mg PO DAILY 04/13/17 04/13/17 History hr)] predniSONE TAB [PredniSONE] 5 mg PO DAILY 04/13/17 04/13/17 History Allergies Allergy/AdvReac Type Severity Reaction Status Date / Time acetaminophen [From Tylenol] Allergy Intermediate RASH Verified 05/08/15 11:58 Sulfa (Sulfonamide Allergy Mild HEAD Verified 05/08/15 11:58 Antibiotics) CONGESTION Penicillins AdvReac Intermediate SYNCOPE Verified 05/08/15 11:58 Exam (Pulmonay) H&P - Constitutional Vitals: Period Temp Pulse Resp BP Sys/Berg Pulse Ox Last 24 Hr 97.1 F-99.8 F 66-77 16-20 100-115/58-71 94-100 Medical,Surgical,& Family Hx - Medical History Cardio: History of: CHF, Hypertension, NC Psychological: History of: Anxiety Disorders, Depression Neurology: No history of: Brain Aneurysm, Cerebral Hemorrhage, Cerebrovascular Accident , Cerebral Palsy, Dementia, Migraine, Multiple Sclerosis, Parkinson's Disease, Peripheral Neuropathy, Seizures, TIA, Vertigo, Neurologocal Cancer HEENT: History of: Eye Problem (cataracts both eyes), Dental Problems (no upper teeth), HEENT Problems No history of: Ear Problem, Glaucoma, Oral Cancer Endocrine: History of: Dyslipidemia No history of: Adrenal Disease, Diabetes Mellitus (IDDM), Diabetes Mellitus ( NIDDM), Thyroid Disorder, Endocrine Cancer, Endocrine Problems Rheumatology: History of;: Rheumatological Problems No history of;: Fibromyalgia, Gout, Myasthenia Gravis, Rheumatoid Arthritis Respiratory: No history of: Asthma, Bronchitis, COPD, Intubation, Obstructive Sleep Apnea , Pulmonary Embolism, Pulmonary Hypertension, Pneumonia, Lung Cancer, Respiratory Problems Renal: No history of: Renal (Kidney) Cancer, Dialysis, Renal Failure, Renal Problems Genitourinary: No history of: Bladder Problem, Kidney Stones, Recurring Urinary Tract Infections, Genitourinary Cancer, Problems Gastrointestinal: History of: GERD, Ulcerative Colitis, GI Problems (chronic constipation) No history of: Bowel Obstruction, Clostridium Difficile, Crohn's Disease, Diverticulitis/ Diverticulosis, Esophageal Varices, Gastrointestinal Bleed, Hemorrhoids, Hematochezia, Hepatitis, Liver Problems, Pancreatitis, Polyps, Gastrointestinal Cancer Musculoskeletal: History of: Musculoskeletal Problems No history of: Amputation, Back/Neck Problems, Degenerative Disk Disease, Herniated Disk, Osteoporosis, Musculoskeletal Cancer Hematology: History of: Bleeding Problems (whenever she has bowel movements she reports bleeding.) No history of: Anemia, Clotting Problems, Sickle Cell Disease, Hematologic Cancer, Blood Disorders Other: History of: Cancer (renal) - Surgical History Cardiac Surgeries: Sugical HX of: Cardiac Catheterization, Cardiac Surgery ( cabg x2 february2017) Patient Denies: Femoral-Popliteal Bypass Graft, Carotid Endarterectomy, Internal Defibrillator, Vascular Access Devices Thoracic Surgeries: Surgical HX of;: Kidney (Renal Surgery), Nephrectomy ( partial left nephrectomy (05-16-15)) Patient denies;: Lithotripsy, Organ Transplant, Lobectomy Neurologic Surgeries: Patient denies: Brain Aneurysm, Cerebral Hemorrhage, Neurologic Surgery HEENT Surgeries: Surgical HX of: Eye Surgery (CATARACTS) Patient denies: Carotid Endarterectomy, Thyroid Surgery, Tonsilectomy & Adenoidectomy Abdominal Surgeries: Surgical HX of: Abdominal Surgery (hysterectomy (partial)) , Cholecystectomy, Colonoscopy, EGD Patient denies: Appendectomy, Gastric Bypass Surgery, Hernia Repair, Splenectomy Reproductive Surgeries: Surgical HX of;: Cystoscopy, Dilation and Curettage, Genitourinary Surgery (bladder removal?), Gynecologic Surgery (partial hysterectomy), Hysterectomy (PARTIAL HYST) Patient denies;: Breast Surgery, Section, Tubal Ligation Orthopedic Surgeries: Patient denies;: Implanted Devices, Orthopedic Surgery, Spinal Surgery, Total Hip Replacement, Total Knee Replacement - Family History Family History: Reports;: Family Diabetes (SISTER), Family Heart Disease (MOM), Family Hypertension (BROTHER), Family Psychiatric Problems (SISTER) Denies;: Family Anesthesia Reaction, Family Cancer - Social History Smoking Status: Never smoker Frequency of Alcohol Use: None Type of Drug Use: None Results - Labs CBC & BMP: 04/15/17 04:35 04/15/17 04:35
[2017-04-15] MEDS: ALBUTEROL/IPRATROPIUM 3 ML NEB RESP TX SCH (19:24)
--- NOTE | 2017-04-15 19:24 | Ultrasound Report ---
Exam: Bilateral lower extremity venous Doppler ultrasound Comparison: None Clinical history: Leg pain, post CABG, shortness of breath Technique: Duplex scan of the lower extremity veins using B-mode/grayscale scaled imaging and Doppler spectral analysis and color flow. Findings: Major venous structures of the lower extremities demonstrate a normal course and caliber. Normal color-flow study and spectral analysis. There is normal compression and augmentation of bilateral common femoral, superficial femoral and popliteal veins. The proximal bilateral greater saphenous veins appear to be patent. Impression: No evidence to suggest deep venous thrombosis within either lower extremity. Ultrasound images were captured and stored. PROCEDURE INTERPRETED AT [facility] DEPARTMENT OF RADIOLOGY Final Report Signed by: Dr. Neolle Scott
--- NOTE | 2017-04-15 19:24 | Cardiology Progress Note ---
I, Nano Brewer, DIMITRIOS, am scribing for, and in the presence of, Jesus Baltazar MD 19:23. Assessment and Plan (1) Dyslipidemia Status: Chronic Assessment and plan: SEE PLAN OF CARE LISTED BELOW 04/15/17 CTA of the lungs is negative There were some findings of emphysema but no heart failure Pulmonary consult Echo/Doppler Further decisions on treatment depends on the results of these tests Current Visit: Yes (2) Chest pain Status: Acute Assessment and plan: SEE PLAN OF CARE LISTED BELOW Current Visit: Yes (3) Chest wall pain following surgery Status: Chronic Assessment and plan: SEE PLAN OF CARE LISTED BELOW Current Visit: Yes (4) Coronary artery disease Status: Chronic Assessment and plan: SEE PLAN OF CARE LISTED BELOW Current Visit: Yes (5) Diabetes Status: Chronic Assessment and plan: SEE PLAN OF CARE LISTED BELOW Current Visit: Yes (6) Dyspnea on exertion Status: Chronic Assessment and plan: SEE PLAN OF CARE LISTED BELOW Current Visit: Yes (7) Hypertension Status: Chronic Assessment and plan: SEE PLAN OF CARE LISTED BELOW Current Visit: Yes Cardiology - PN: Subj Interval history: Junior Network Administrator: Dr. Ruiz PCP: Dr. Gareth Glez Ms. Gregorio is a 67-year-old -[place] woman. She underwent two-vessel bypass grafting in early February by Dr. Green. She was let go home around March 06. She had a vein graft to LAD and a vein graft to her circumflex marginal. He could not use a small, diminutive MARTHA. She did fairly well. However, lately she has noticed some exertional chest discomfort. He comes on with activity. It lessens when she rests or sits up. It is sharp. Is in her right chest and also left lower mid chest area. He can be burning. Is associated with shortness of breath and diaphoresis and some nausea. She came to emergency room. She was seen. Her troponin was white zone. Is about 0.2. She was sent here for evaluation. She is also had some shortness of breath and dyspnea on exertion. APRIL 14, 2017: The patient is sitting up in a chair this morning and denies complaints of chest pain overnight. She admits shortness of breath on exertion , and states she has dyspnea on exertion regularly since her surgery. She does have some reproducible right sided chest wall pain on exam. She has tenderness over her midsternal surgical scar, which is well healing, this is to be expected. Cardiac biomarkers have remained flat. EKG shows sinus rhythm with likely old inferior MT. Heart rate remains in the 80s, with good blood pressure control. Chest x-ray shows no acute abnormality. BNP is noted at 330. Will add a d-dimer, and continue to follow EKGs and cardiac biomarkers. The patient is free of chest pain at this time. Creatinine is noted at 1.2, and it had returned to normal at her previous hospitalization. APRIL 15, 2017: The patient continues to complain of dyspnea on exertion. She states she can barely complete her shower this morning without stopping to catch her breath. She does admit that this has occurred since her previous CABG approximately 6 weeks ago. She denies chest pain other than midsternal and right sided chest wall pain, however she reports the right chest wall pain is improving. Labs reviewed: Creatinine has returned to baseline at 0.9, thyroid panel unremarkable, alk phos is elevated at 184, CBC unremarkable. Chest x-ray revealed no acute abnormality. CTA was performed on 04/14/17 after an elevated d-dimer, study revealed no evidence of pulmonary embolism. Minimal central lobular emphysema and atelectasis, as well as healed granulomatous disease with minimal diffuse groundglass opacities which could be related to minimal edema or fibrosis. The patient is followed by Dr. Palomo at [place], and she states she has not had follow-up with him since her heart surgery. She does believe that she had an echocardiogram prior to surgery but not since then. Cardiac biomarkers were negative. EKG is sinus rhythm and telemetry reveals the same. At this point will add an echocardiogram, if this looks okay the patient may benefit from a pulmonary consult, however this could be accomplished outpatient as chest x-ray and CTA have ruled out acute pulmonary causes of dyspnea. Plan to reduce Lovenox to 40 mg today and add lisinopril 2.5 mg. will discuss plan of care with Dr. Baltazar and await further recommendations. ASSESSMENT/PLAN: 1. Chest pain -trended cardiac biomarkers, troponins flat thus far. Serial EKGs. 2. Chest wall pain following surgery -midsternal chest pain approximately 6 weeks post CABG, incision well healing, unremarkable. 3. CAD -continue aspirin. No chest pain at present. 4. Hypertension -controlled at present. Will initiate low-dose lisinopril with hold parameters. 5. Dyspnea on exertion -patient reports this has been her baseline since surgery. Chest x-ray no acute abnormality. D-dimer elevated, CTA negative for PE. Continue 2 L of oxygen via nasal cannula. Consider pulmonary consult. 6. Diabetes -continue Accu-Cheks and sliding scale insulin. Continue home medication. 7. Dyslipidemia -continue current plan of care. Exam (Progress Note) - Constitutional Vitals: Period Temp Pulse Resp BP Sys/Berg Pulse Ox Last 24 Hr 97.1 F-99.2 F 69-77 16-18 100-123/58-75 94-100 Exam: General: Appears well with no apparent distress. Pleasant and cooperative. Appears comfortable. HEENT: PERRL, normocephalic, atraumatic. Mucous membranes moist. No jaundice noted. Conjunctiva moist and clear, sclerae anicteric. Neck: No JVD/HJR, no thyromegaly or lymphadenopathy noted. Cardiac: Regular rate and rhythm. No murmur rub or gallop. PMI is nondisplaced. Lungs: Clear to auscultation without accessory muscle use to assist the respiratory pattern. Oxygen in use via nasal cannula. Abdomen: Soft, bowel sounds normoactive. Nontender and nondistended. No abdominal bruit or thrill noted. No masses noted. Musculoskeletal: No fluid collection. Decreased range of motion is noted. Extremities: No clubbing, cyanosis noted. No edema noted. Upper extremity pulses 2+. Lower extremity pulses 2+. Capillary refill less than 3 seconds. Skin: No unusual lesions or rashes. No skin breakdown appreciated. Neuro: Awake, alert and oriented 3. Moves all extremities well without hemiparesis or paralysis. No essential tremor is appreciated. Result/EKG - Labs CBC & BMP: 04/15/17 04:35 04/15/17 04:35 Lab Results: I have reviewed the past 24 hour labs Labs: Laboratory Results - last 24 hr 04/14/17 04/15/17 04/15/17 08:17 04:35 04:35 WBC 9.9 RBC 4.48 Hgb 12.5 Hct 39.4 MCV 87.9 MCH 28 MCHC 31.7 L RDW 14.6 Plt Count 237 MPV 9.6 Neut % (Auto) 55.6 Lymph % (Auto) 32.3 [place] % (Auto) 7.9 Eos % (Auto) 3.0 Baso % (Auto) 0.3 Neut # (Auto) 5.5 Lymph # (Auto) 3.2 [place] # (Auto) 0.8 Eos # (Auto) 0.3 Baso # (Auto) 0.0 Immature Gran % 0.9 Nucleated RBC % 0.0 Immature Gran # 0.09 Nucleated RBCs # 0.00 Immature Plt Fraction 0.0 D-Dimer, Quantitative 2.2 Sodium 140 Potassium 4.4 Chloride 107 Carbon Dioxide 27 Anion Gap 10.4 BUN 27 H Creatinine 0.90 GFR Calculation 78 BUN/Creatinine Ratio 30.00 H Glucose 100 Hemoglobin A1c Calculated Osmolality 283.4 Calcium 8.8 Total Bilirubin < 0.39 AST 26 ALT 23 Alkaline Phosphatase 184 H Total Protein 6.3 L Albumin 2.4 L Globulin 3.9 H Albumin/Globulin Ratio 0.6 L Free T4 TSH 3rd Generation 04/15/17 04/15/17 04:35 04:35 WBC RBC Hgb Hct MCV MCH MCHC RDW Plt Count MPV Neut % (Auto) Lymph % (Auto) [place] % (Auto) Eos % (Auto) Baso % (Auto) Neut # (Auto) Lymph # (Auto) [place] # (Auto) Eos # (Auto) Baso # (Auto) Immature Gran % Nucleated RBC % Immature Gran # Nucleated RBCs # Immature Plt Fraction D-Dimer, Quantitative Sodium Potassium Chloride Carbon Dioxide Anion Gap BUN Creatinine GFR Calculation BUN/Creatinine Ratio Glucose Hemoglobin A1c 6.3 Calculated Osmolality Calcium Total Bilirubin AST ALT Alkaline Phosphatase Total Protein Albumin Globulin Albumin/Globulin Ratio Free T4 1.10 TSH 3rd Generation 3.060 - Diagnostic Findings Procedure: Chest x-ray: report reviewed by me, CT - chest: report reviewed by me - EKG EKG results: interpreted by me, sinus rhythm I, Jesus Baltazar MD, personally performed the services described in this documentation, ascribed by Nano Brewer NP in my presence, and it is both accurate and complete .
[2017-04-15] MEDS: AMITRIPTYLINE 100 MG TABLET PO SCH (20:36)
[2017-04-15] MEDS: ATORVASTATIN 40 MG TABLET PO SCH (20:37)
[2017-04-15] MEDS: SERTRALINE 100 MG TABLET PO SCH (20:37)
[2017-04-15] MEDS: DICLOFENAC 1.3% PATCH 5/PACK TRANSDERM SCH (20:37)
[2017-04-15] MEDS ORDERED: DICLOFENAC 1% GEL 100 GM TUBE TOP SCH (21:00)
[2017-04-15] MEDS ORDERED: MONTELUKAST 10 MG TABLET PO SCH (21:00)
--- NOTE | 2017-04-15 21:30 | ECHO Report ---
Montse Gregorio Exam Date: 04/15/2017 10:26 Referring Physician: Technologist: Viktoriya Holt LRKOJO Age: 67 Ht (in): 63 Wt (lb): 163 Gender: F Exam Location: [facility] Echo Indications: HTN, WALSH, dyslipidemia, CAD, diabetes, chest pain BP: 106 / 63 HR: 70 Rhythm: Sinus Technical Quality: Good IMPRESSIONS Mild concentric left ventricular hypertrophy with diastolic dysfunction. Left ventricular ejection fraction is estimated at 40 - 50 %. Mildly increased right ventricular size. The right atrium is mildly enlarged. The left atrium is mildly enlarged. Mildly thickened mitral valve with mild mitral regurgitation. MEASUREMENTS (Male / Female) Normal Values 2D ECHO LV Diastolic Diameter PLAX 3.2 cm 4.2 - 5.9 / 3.9 - 5.3 cm LV Systolic Diameter PLAX 2.9 cm LV Fractional Shortening PLAX 8.9 % IVS Diastolic Thickness 1.0 cm 0.6 - 1.0 / 0.6 - 0.9 cm LVPW Diastolic Thickness 1.0 cm 0.6 - 1.0 / 0.6 - 0.9 cm Aortic Root Diameter 3.0 cm LA Systolic Diameter LX 2.9 cm 3.0 - 4.0 / 2.7 - 3.8 cm DOPPLER TR Peak Velocity 271.0 cm/s TR Peak Gradient 29.4 mmHg FINDINGS Left Ventricle Normal left ventricular cavity size. Mild concentric left ventricular hypertrophy with diastolic dysfunction. Left ventricular ejection fraction is estimated at 40 - 50 %. Right Ventricle Mildly increased right ventricular size. Right Atrium The right atrium is mildly enlarged. Left Atrium The left atrium is mildly enlarged. Mitral Valve Mildly thickened mitral valve with mild mitral regurgitation. Aortic Valve The aortic valve is trileaflet and has normal motion. Trace aortic valve regurgitation. Tricuspid Valve Morphologically normal tricuspid valve. Trace to mild tricuspid valve regurgitation. Pulmonic Valve Morphologically normal pulmonic valve. Trace pulmonary valve regurgitation. RV systolic pressure is about 24-29 mmHg. Pericardium No pericardial effusion. Aorta Normal size aortic root and proximal ascending aorta. Jesus Baltazar MD (Electronically Signed) Final Date: 15 April 2017 21:29
[2017-04-16] MEDS: SODIUM CHLORIDE 0.9% 1,000 ML IV SCH (00:04)
[2017-04-16] MEDS: ALBUTEROL/IPRATROPIUM 3 ML NEB RESP TX SCH ×2 (01:32→06:50)
[2017-04-16 06:00] LABS: Basophils % 0.3 % (0.0-0.8); Eosinophils # 0.3 10*3/uL (0.0-0.87); Eosinophils % 3.5 % (0.00-10.9); Hematocrit 37.4 VOL% (35.7-47.0); Hemoglobin 11.7 GM/DL (12.0-16.0); Immature Granulocytes % 1.1 %; Lymphocytes # 3.4 10*3/uL (1.4-4.0); Lymphocytes % 36.4 % (21.3-54.2); Mean Corpuscular HGB Conc 31.3 GM/DL (32-36); Mean Corpuscular Hemoglobin 28 PG (27-34); Mean Corpuscular Volume 88.6 FL (87-102); Mean Platelet Volume 9.9 FL (9.6-12.0); Monocytes # 0.6 10*3/uL (0.11-0.8); Monocytes % 6.8 % (1.7-12.7); Neutrophils # 4.9 10*3/uL (1.4-7.4); Neutrophils % 51.9 % (38.7-73.9); Platelet Count 214 T/CUMM (130-400); Red Blood Count 4.22 MC/CUMM (3.8-5.5); Red Cell Distribution Width 14.5 % (9.3-17.3); White Blood Count 9.4 T/CUMM (4-12)
[2017-04-16 06:28] LABS: Alanine Aminotransferase 21 U/L (13-56); Albumin 2.4 G/DL (3.4-5.0); Alkaline Phosphatase 188 U/L (45-117); Aspartate Amino Transferase 19 U/L (0-37); Bilirubin,Total < 0.39 MG/DL (0.2-1.0); Blood Urea Nitrogen 21 MG/DL (7-18); Calcium 8.6 MG/DL (8.5-10.1); Glucose 81 MG/DL (74-106); Osmolality,Calculated 282.3 MOS/KG (273-304); Sodium 141 MMOL/L (136-145); Total Protein 6.1 G/DL (6.4-8.3)
[2017-04-16] MEDS: ASPIRIN EC 325 MG TABLET PO SCH (08:24)
[2017-04-16] MEDS: PANTOPRAZOLE 40 MG TABLET PO SCH (08:25)
[2017-04-16] MEDS: AMIODARONE 200 MG TABLET PO SCH (08:25)
[2017-04-16] MEDS: traMADol 50 MG TABLET PO SCH (08:25)
[2017-04-16] MEDS: DILTIAZEM CD 120 MG CAPSULE PO SCH (08:25)
[2017-04-16] MEDS: FUROSEMIDE 40 MG TABLET PO SCH (08:25)
[2017-04-16] MEDS: GABAPENTIN 100 MG CAPSULE PO SCH (08:25)
[2017-04-16] MEDS: POTASSIUM CHLORIDE 20 MEQ TABLET PO SCH (08:25)
[2017-04-16] MEDS: BISOPROLOL 5 MG TABLET PO SCH (08:26)
[2017-04-16] MEDS: DICLOFENAC 1.3% PATCH 5/PACK TRANSDERM SCH (08:36)
[2017-04-16] MEDS: predniSONE 5 MG TABLET PO SCH (08:36)
[2017-04-16] MEDS ORDERED: ENOXAPARIN 40 MG/0.4 ML SYRINGE SUBCUT SCH (09:00)
[2017-04-16] MEDS ORDERED: LISINOPRIL 2.5 MG TABLET PO SCH (09:00)
--- NOTE | 2017-04-16 10:04 | Pulmonology Progress Note ---
Pulmonary - PN: Subj Interval history: This is a 67-year-old white female whom I saw in pulmonary consultation on 2016. My impressions were. 1. Arteriosclerotic heart disease. Coronary artery bypass grafts 2 within the past approximately 1 month. Elevated troponins of undetermined significance. 2. Costochondritis with chest pain. 3. Mild solid dysphasia. Gastroesophageal reflux disease with gastric contents into the throat. Most likely microaspiration. #4. Mild laryngeal tracheal and large airway wheeze. Most likely secondary to microaspiration. Watch for LANDON inhibitor contribution. 5. Distant past history of tobacco abuse. Stop smoking 1984 6. Hyperlipidemia 7. Rheumatoid arthritis on low-dose steroids 8. See past history 04/16/2017. Today the patient says she is breathing better. Tracheal and large airway wheeze is markedly improved. She is for pulmonary function tests later on today. Flector patches have also helped her costochondritis. Doppler venograms 04/15/2017 were negative for deep venous thrombophlebitis. Electrolytes are normal. Creatinine is 1.0. White count is 9400 with 52 segs 36 lymphs and 7 monos. H&H is 11.7/37.4. Platelets are 214,000 natruretic peptide is 191. Thyroid function tests are normal. Patient looks much better today and she is definitely less short of breath. Physical exam. Vital signs. See below Psychiatric. Oriented 3. Cooperative. Good historian. Face. Symmetrical. No edema of the lips or tongue. Neck. Symmetrical. No meningismus Lymphatics. No submandibular cervical supraclavicular or epitrochlear adenopathy. Chest. Moves air well. Tracheal and large airway wheeze was not heard this morning. There were no peripheral wheezes Heart. No gallop Abdomen. Nontender. Positive bowel sounds Extremities. No deep venous thrombophlebitis The remainder the physical exam is negative Plan. 04/15/2017 1. Inhalation therapy with DuoNeb's 4 times daily and as needed 2. Singulair 10 mg daily 3. Doppler venograms of the lower extremities. 4. Pulmonary function test. Look for obstruction. This will also act as a baseline pulmonary function study while the patient is on amiodarone 5. Flector patch. One half on each area of costochondritis. Apply every 12 hours. 6. Increase Protonix 40 mg twice daily. 7. If solid dysphasia does not resolve with increase proton pump inhibitor, consider E scope. She says she has had these symptoms only for a few weeks. 8. Gastroesophageal reflux precautions 9. Sputum for Gram stain culture and sensitivity 10. See order 04/16/2017 1. Wheezing much better. 2. Pulmonary function test pending 3. Costochondritis has improved. 4. Did well with [id number] regimen last night. Gastroesophageal reflux and microaspiration are the likely causes of the patient's wheeze. Exam (Progress Note) - Constitutional Vitals: Period Temp Pulse Resp BP Sys/Berg Pulse Ox Last 24 Hr 97.9 F-99.8 F 63-70 16-20 106-133/53-71 94-100 Results - Labs CBC & BMP: 04/16/17 05:27 04/16/17 05:27
--- NOTE | 2017-04-16 11:20 | Discharge Summary ---
Hospital Course - Hospital Course Hospital Course: Patient is a 67-year-old black female admitted for evaluation of chest pain. Patient serum troponin level remained elevated during this hospital stay. Patient completed 2 vessel CABG about 6 weeks ago. Cardiology and pulmonary consultants contributed to chest pain evaluation. Patient's chest pain complaints improved as she receives supportive care. Patient is eager for discharge home today. - Time spent with patient Time with patient DS: Greater than 30 minutes Diagnosis - Discharge Diagnosis (1) Chest pain Status: Acute (2) Costochondritis Status: Acute (3) Aspiration into respiratory tract Status: Chronic (4) Dysphasia Status: Acute (5) Gastroesophageal reflux Status: Acute (6) Coronary artery disease Status: Chronic (7) Diastolic dysfunction Status: Chronic (8) Type 2 diabetes mellitus Status: Chronic (9) Dyslipidemia Status: Chronic (10) Essential hypertension Status: Chronic (11) Rheumatoid arthritis Status: Acute Specialty Discharge - Follow Up or Referrals Follow up with: Jesus Baltazar MD [Physician] - - Speciality Discharge Instructions Pulmonary Instructions: Schedule follow-up with Dr. Emerson Gonzalez multiple resaw operator within the next 2 weeks Discharge Plan - Discharge Data Disposition: Disch To Home/Self Care Condition at Discharge: Stable Discharge Diet: low fat, low cholesterol, low salt diet Activity: resume usual activities as tolerated Hygiene: no restrictions Weight Bearing at Discharge: full weight bearing Contact your physician if you experience:: fever over 101, Shortness of breath - Discharge Medications New Diclofenac 1.3% Patch [Flector 1.3% Patch] 1 patch TRANSDERM BID patch Gabapentin Cap/Tab [Neurontin Cap/Tab] 100 mg PO TID capsule Montelukast Tab [Singulair Tab] 10 mg PO 2100 tablet traMADol TAB [Ultram] 50 mg PO BID tablet Albuterol/Ipratropium Neb [Duoneb] 3 ml RESP TX RT Q6H Bisoprolol [Zebeta] 2.5 mg PO BID tablet Lisinopril [Prinivil] 2.5 mg PO DAILY tablet Continue Atorvastatin [Lipitor] 40 mg PO BEDTIME Omeprazole [Prilosec] 20 mg PO DAILY dilTIAZem HCl [Diltiazem ER (24 hr)] 120 mg PO DAILY Aspirin EC Tab 81 mg PO DAILY Amiodarone Tab [Cordarone Tab] 200 mg PO BID #60 tablet Sertraline [Zoloft] 100 mg PO BEDTIME tablet predniSONE TAB [PredniSONE] 5 mg PO DAILY Furosemide Tab [Lasix Tab] 40 mg PO DAILY Discontinued Amitriptyline [Elavil] 100 mg PO BEDTIME tablet Potassium Chloride Cap/Tab [K Dur] 20 meq PO DAILY #30 tablet - Follow Up or Referral Follow Up: Jesus Batlazar MD [Physician] - Emerson Gonzalez MD [Physician] - - Forms/Instructions Exam - Constitutional Vitals: Period Temp Pulse Resp BP Sys/Berg Pulse Ox Last 24 Hr 97.9 F-99.8 F 63-70 16-20 106-133/53-71 94-100 General appearance: normal weight - Head Head exam: Present: normal inspection - ENT ENT exam: Present: normal exam - Neck Neck exam: Absent: meningismus, tenderness - Respiratory Respiratory exam: Present: clear to auscultation bilaterally. Absent: rales, wheezes - Cardiovascular Cardiovascular exam: Present: regular rate and rhythm - GI/Abdominal GI/Abdominal exam: Present: normal bowel sounds, hypoactive bowel sounds, soft. Absent: rebound - Extremities Exam Extremities exam: Present: normal inspection, other (Saphenous vein harvest site surgical scar remains clean and dry without surrounding symptoms of acute inflammation) - Back Exam Back exam: Absent: CVA tenderness (L), CVA tenderness (R) - Neurological Exam Neurological exam: Present: alert, oriented X3 - Psychiatric Psychiatric exam: Present: normal affect - Skin Skin exam: Present: normal color, warm. Absent: rash Discharge Results Procedures and tests throughout hospitalization: Pending Orders 04/15/17 18:25 Sputum Culture and Gram Stain Routine Labs on day of discharge: Labs from last 24 hours 04/16/17 04/16/17 04/16/17 05:27 05:27 05:27 WBC 9.4 RBC 4.22 Hgb 11.7 L Hct 37.4 MCV 88.6 MCH 28 MCHC 31.3 L RDW 14.5 Plt Count 214 MPV 9.9 Neut % (Auto) 51.9 Lymph % (Auto) 36.4 Amelia % (Auto) 6.8 Eos % (Auto) 3.5 Baso % (Auto) 0.3 Neut # (Auto) 4.9 Lymph # (Auto) 3.4 Amelia # (Auto) 0.6 Eos # (Auto) 0.3 Baso # (Auto) 0.0 Immature Gran % 1.1 Nucleated RBC % 0.0 Immature Gran # 0.10 Nucleated RBCs # 0.00 Immature Plt Fraction 0.0 Sodium 141 Potassium 4.0 Chloride 105 Carbon Dioxide 29 Anion Gap 11.0 BUN 21 H Creatinine 1.00 GFR Calculation 69 BUN/Creatinine Ratio 21.00 H Glucose 81 Calculated Osmolality 282.3 Calcium 8.6 Total Bilirubin < 0.39 AST 19 ALT 21 Alkaline Phosphatase 188 H B-Natriuretic Peptide 191 H Total Protein 6.1 L Albumin 2.4 L Globulin 3.7 H Albumin/Globulin Ratio 0.6 L - Imaging and Cardiology Procedure: CT - chest: other, Ultrasound: other (Bilateral leg ultrasound exam) , X-ray: other (Echocardiogram) - Additional Comments Clinical history: Leg pain, post CABG, shortness of breath Technique: Duplex scan of the lower extremity veins using B-mode/grayscale scaled imaging and Doppler spectral analysis and color flow. Findings: Major venous structures of the lower extremities demonstrate a normal course and caliber. Normal color-flow study and spectral analysis. There is normal compression and augmentation of bilateral common femoral, superficial femoral and popliteal veins. The proximal bilateral greater saphenous veins appear to be patent. Impression: No evidence to suggest deep venous thrombosis within either lower extremity. Transthoracic echocardiogram: Mild concentric left ventricular hypertrophy with diastolic dysfunction. Left ventricular ejection fraction is estimated at 40 - 50 %. Mildly increased right ventricular size. The right atrium is mildly enlarged. The left atrium is mildly enlarged. Mildly thickened mitral valve with mild mitral regurgitation. Chest CTA: There is no evidence of pulmonary embolism through the segmental pulmonary arteries.The heart is borderline in size with coronary artery calcifications in recent median sternotomy. Limited contrast in the aorta with no evidence of definite dissection. Calcified nodes are identified. Degenerative changes are noted. Calcified granulomata with minimal groundglass opacities. No pleural effusion or pneumothorax. Minimal centrilobular emphysema and atelectasis. Impression: No evidence of pulmonary embolism. Recent median sternotomy with coronary artery calcifications. Minimal centrilobular emphysema and atelectasis. Evidence of old healed granulomatous disease with minimal diffuse groundglass opacities which may be related to very minimal edema, fibrosis, etc. DS: Provider Date of admission: 04/15/17 13:26 Primary care physician: . No PCP Attending physician on admission: Carlos Crockett MD Consults: 04/13/17 16:29 Consult to Physician [CONS] Routine Comment: Consulting Provider: Cardiology - [facility] Consult to Specialist Group: Cardiology Person Notified: dr baltazar Date Notified: 04/13/17 Time Notified: 18:12 04/13/17 17:55 Consult to Dietitian [CONS] Routine Reason for Dietitian: Dietary Consult Consult to Pastoral Services [CONS] Routine Comment: Pastoral Screen: Request Territory Account Manager Visit 04/15/17 12:09 Consult to Physician [CONS] Routine Comment: dyspnea on exertion Consulting Provider: Emerson Gonzalez Consult to Specialist Group: Pulmonology When should Consulting Provider be notified: Now Person Notified: WILBUR Date Notified: 04/15/17 Time Notified: 12:20 Discharging clinician: Nicola Ruiz III Expected date of discharge: 04/16/17
[2017-04-16 11:41] VITALS: BP 109/62
--- NOTE | 2017-04-16 14:00 | Cardiology Progress Note ---
Osman Millard Lesley, DIMITRIOS, am scribing for, and in the presence of, Mellissa Dasilva NP 14:00. Assessment and Plan (1) Dyslipidemia Status: Chronic Assessment and plan: SEE PLAN OF CARE LISTED BELOW Current Visit: Yes (2) Chest pain Status: Acute Assessment and plan: SEE PLAN OF CARE LISTED BELOW Current Visit: Yes (3) Chest wall pain following surgery Status: Chronic Assessment and plan: SEE PLAN OF CARE LISTED BELOW Current Visit: Yes (4) Coronary artery disease Status: Chronic Assessment and plan: SEE PLAN OF CARE LISTED BELOW Current Visit: Yes (5) Diabetes Status: Chronic Assessment and plan: SEE PLAN OF CARE LISTED BELOW Current Visit: Yes (6) Dyspnea on exertion Status: Acute Assessment and plan: SEE PLAN OF CARE LISTED BELOW Current Visit: Yes (7) Hypertension Status: Chronic Assessment and plan: SEE PLAN OF CARE LISTED BELOW Current Visit: Yes (8) Gastroesophageal reflux Status: Acute Assessment and plan: SEE PLAN OF CARE LISTED BELOW Current Visit: Yes Cardiology - PN: Subj Interval history: Oil Well Service Operator: Dr. Ruiz PCP: Dr. Gareth Glez Ms. Gregorio is a 67-year-old -Citizen Of [place] woman. She underwent two-vessel bypass grafting in early February by Dr. Green. She was let go home around March 06. She had a vein graft to LAD and a vein graft to her circumflex marginal. He could not use a small, diminutive MARTHA. She did fairly well. However, lately she has noticed some exertional chest discomfort. He comes on with activity. It lessens when she rests or sits up. It is sharp. Is in her right chest and also left lower mid chest area. He can be burning. Is associated with shortness of breath and diaphoresis and some nausea. She came to emergency room. She was seen. Her troponin was white zone. Is about 0.2. She was sent here for evaluation. She is also had some shortness of breath and dyspnea on exertion. APRIL 14, 2017: The patient is sitting up in a chair this morning and denies complaints of chest pain overnight. She admits shortness of breath on exertion , and states she has dyspnea on exertion regularly since her surgery. She does have some reproducible right sided chest wall pain on exam. She has tenderness over her midsternal surgical scar, which is well healing, this is to be expected. Cardiac biomarkers have remained flat. EKG shows sinus rhythm with likely old inferior DE. Heart rate remains in the 80s, with good blood pressure control. Chest x-ray shows no acute abnormality. BNP is noted at 330. Will add a d-dimer, and continue to follow EKGs and cardiac biomarkers. The patient is free of chest pain at this time. Creatinine is noted at 1.2, and it had returned to normal at her previous hospitalization. APRIL 15, 2017: The patient continues to complain of dyspnea on exertion. She states she can barely complete her shower this morning without stopping to catch her breath. She does admit that this has occurred since her previous CABG approximately 6 weeks ago. She denies chest pain other than midsternal and right sided chest wall pain, however she reports the right chest wall pain is improving. Labs reviewed: Creatinine has returned to baseline at 0.9, thyroid panel unremarkable, alk phos is elevated at 184, CBC unremarkable. Chest x-ray revealed no acute abnormality. CTA was performed on 04/14/17 after an elevated d-dimer, study revealed no evidence of pulmonary embolism. Minimal central lobular emphysema and atelectasis, as well as healed granulomatous disease with minimal diffuse groundglass opacities which could be related to minimal edema or fibrosis. The patient is followed by Dr. Palomo at [facility], and she states she has not had follow-up with him since her heart surgery. She does believe that she had an echocardiogram prior to surgery but not since then. Cardiac biomarkers were negative. EKG is sinus rhythm and telemetry reveals the same. At this point will add an echocardiogram, if this looks okay the patient may benefit from a pulmonary consult, however this could be accomplished outpatient as chest x-ray and CTA have ruled out acute pulmonary causes of dyspnea. Plan to reduce Lovenox to 40 mg today and add lisinopril 2.5 mg. APRIL 16, 2017: The patient relates improvement in her WALSH. Echocardiogram reveals mild concentric left ventricular hypertrophy with diastolic dysfunction , left ventricular EF is 40-50%, mildly increased right ventricular size, right atrium mildly enlarged, left atrium mildly enlarged, mild MVR, trace AR, mild TR , pericardial effusion, normal size aortic root with proximal descending aorta. Venous Doppler ultrasound is negative for deep vein thrombosis bilaterally. Chest x-ray reveals COPD with chronic scarring. Normal size heart with prior median sternotomy. Appreciate pulmonary input, the patient will have PFTs done today. Pulmonary is treating the patient for GERD with likely microaspiration of gastric contents. Chest wall pain is responded well to Flector patch. ASSESSMENT/PLAN: 1. Chest pain -no further complaints of chest pain since admission. 2. Chest wall pain following surgery -midsternal chest pain approximately 6 weeks post CABG, incision well healing, unremarkable. Continue Flector patch. 3. CAD -continue aspirin. No chest pain at present. 4. Hypertension -controlled at present. Will initiate low-dose lisinopril with hold parameters. 5. Dyspnea on exertion -CTA negative. Venous Doppler negative bilaterally. Increase Protonix due to GERD with possible microaspiration. PFTs today. Sputum for Gram stain culture and sensitivity. Gastroesophageal reflux precautions. Duo nebs and Singulair added consider E scope. 6. Diabetes -continue Accu-Cheks and sliding scale insulin. Continue home medication. 7. Dyslipidemia -LDL 120, increase Lipitor to 80 mg every evening. Continue current plan of care. Exam (Progress Note) - Constitutional Vitals: Period Temp Pulse Resp BP Sys/Berg Pulse Ox Last 24 Hr 97.9 F-99.8 F 63-72 16-20 104-133/53-71 94-100 Exam: General: [Appears well with no apparent distress.] [Pleasant and cooperative. ] [Appears comfortable.] HEENT: [PERRL, normocephalic, atraumatic]. [Mucous membranes moist.] [No jaundice noted.] [Conjunctiva moist and clear, sclerae anicteric.] Neck: [No JVD/HJR, no thyromegaly or lymphadenopathy noted.] [ No carotid bruit appreciated.] Cardiac: [Regular rate and rhythm.] [No murmur rub or gallop.] [PMI is nondisplaced.] Lungs: [Clear to auscultation without accessory muscle use to assist the respiratory pattern.] [Oxygen in use via nasal cannula.] Abdomen: [Soft, bowel sounds normoactive.] Nontender and nondistended. No abdominal bruit or thrill noted. No masses noted. Musculoskeletal: No fluid collection. Decreased range of motion is noted. Extremities: No clubbing, cyanosis noted. No edema noted. Upper extremity pulses 2+. Lower extremity pulses 2+. Capillary refill less than 3 seconds. Skin: No unusual lesions or rashes. No skin breakdown appreciated. Neuro: Awake, alert and oriented 3. Moves all extremities well without hemiparesis or paralysis. No essential tremor is appreciated. Result/EKG - Labs CBC & BMP: 04/16/17 05:27 04/16/17 05:27 Lab Results: I have reviewed the past 24 hour labs Labs: Laboratory Results - last 24 hr 04/15/17 04/16/17 04/16/17 04:27 05:27 05:27 WBC 9.4 RBC 4.22 Hgb 11.7 L Hct 37.4 MCV 88.6 MCH 28 MCHC 31.3 L RDW 14.5 Plt Count 214 MPV 9.9 Neut % (Auto) 51.9 Lymph % (Auto) 36.4 Lander % (Auto) 6.8 Eos % (Auto) 3.5 Baso % (Auto) 0.3 Neut # (Auto) 4.9 Lymph # (Auto) 3.4 Lander # (Auto) 0.6 Eos # (Auto) 0.3 Baso # (Auto) 0.0 Immature Gran % 1.1 Nucleated RBC % 0.0 Immature Gran # 0.10 Nucleated RBCs # 0.00 Immature Plt Fraction 0.0 Sodium 141 Potassium 4.0 Chloride 105 Carbon Dioxide 29 Anion Gap 11.0 BUN 21 H Creatinine 1.00 GFR Calculation 69 BUN/Creatinine Ratio 21.00 H Glucose 81 Calculated Osmolality 282.3 Calcium 8.6 Total Bilirubin < 0.39 AST 19 ALT 21 Alkaline Phosphatase 188 H Troponin I 0.181 H B-Natriuretic Peptide Total Protein 6.1 L Albumin 2.4 L Globulin 3.7 H Albumin/Globulin Ratio 0.6 L 04/16/17 05:27 WBC RBC Hgb Hct MCV MCH MCHC RDW Plt Count MPV Neut % (Auto) Lymph % (Auto) Lander % (Auto) Eos % (Auto) Baso % (Auto) Neut # (Auto) Lymph # (Auto) Lander # (Auto) Eos # (Auto) Baso # (Auto) Immature Gran % Nucleated RBC % Immature Gran # Nucleated RBCs # Immature Plt Fraction Sodium Potassium Chloride Carbon Dioxide Anion Gap BUN Creatinine GFR Calculation BUN/Creatinine Ratio Glucose Calculated Osmolality Calcium Total Bilirubin AST ALT Alkaline Phosphatase Troponin I B-Natriuretic Peptide 191 H Total Protein Albumin Globulin Albumin/Globulin Ratio - Diagnostic Findings Procedure: Chest x-ray: report reviewed by me, Ultrasound: report reviewed by me - EKG EKG results: interpreted by me, sinus rhythm Specialty Discharge - Follow Up or Referrals Follow up with: Jesus Baltazar MD [Physician] - 05/01/17 7:50 am Emerson Gonzalez MD [Physician] - 04/30/17 1:00 pm Brown Millard Bonnie E, NP, personally performed the services described in this documentation, ascribed by Nano Brewer NP in my presence, and it is both accurate and complete [id number] .
== END 2017-04-16 14:05 | disposition home or self-care (01) | DRG 206 ==
LOC: EDUNIT# → EDBD → N.EDINP 13:59 → N.ED 13:59 → SUATTDRO 16:05 → N.EDINP 17:34 → N.TELES 17:43
PROVIDERS: ADMIT Internal Medicine; ATTEND Internal Medicine